=== PATIENT | female | born 1925 | race Caucasian/White ===

== ENCOUNTER → 2016-11-19 | Outpatient (CLI) | payer MEDICARE, MEDICAID ==
[~2016-11-19] MED LIST: /METO25TAB PO; /PANT40TA PO; ACET-654 PO; ADV250INH INH; ASPI81TA85 PO; ATOR1TAB21 PO; ATRO0.063 INH; ATROVENT 0.02% INH; CARA1TAB2 PO; CIPR500T89 PO; CLOP75TA2 PO; FE T325T PO; FERR220E2 PO; FISH1000 PO; FLON0.054; FLUTISP; GABA300C2 PO; GABA300C3 PO; HYDR-3713 PO; LASI40TA PO; LIDO1DIS2 TD; LIDO1OIN2 TOP; LISI10TA4 PO; LISI5TAB PO; LORTTAB5 PO; LUTE15CA PO; METO25TAB PO; NITR3TA SL; NITR4TASL SL; NORCOBULK PO; OCUVCAP PO; OMEP20CA3 PO; OPTI0.5D5 OU; PANT40TA2 PO; PLAV75TA38 PO; SPIR1CAP IN; VOLT1GEL2 TD; VOLT1GEL24 TD; ZANT150T PO; [UNRECOGNIZED DRUG - CODE] OP; [UNRECOGNIZED DRUG - OTHER] PO; albuterol hfa INH
--- NOTE | 2016-12-06 00:19 | ECWPNPC ---
PATIENT NAME: SHARON HERNÁNDEZ : 1925 GENDER: FEMALE VISIT DATE: 11/19/2016 DISCHARGE DATE: 11/19/16 1040 VISIT LOCKED DATE TIME: PHYSICIAN: DANILO DE LEON RESOURCE: DANILO DE LEON REASON FOR APPOINTMENT 1. POST ED VISIT, BACK HISTORY OF PRESENT ILLNESS HISTORY OF PRESENT ILLNESS: PAIN THE PATIENT DESCRIBES THE PAIN... FALL RISK SCREENING: SCREENING :NO FALLS IN THE PAST YEAR TODAY'S VISIT: NOTES: RATES PAIN TODAY 10. REPORTS PAIN IS CENTERED AT THE BASE OF THE NECK WITH RADIATION ACROSS THE RIGHT ANDTERIOR AND POSTERIOR CHEST WALL TO THE SHOULDER.. CURRRENTLY REPORTS MINIMAL TO NO LOW BACK OR SACRALILIAC PAIN. IS S/P LEFT SIJ INJECTION ON 08/21/16 WITH VERY GOOD EFFECT. . CURRENT MEDICATIONS TAKING METOPROLOL TARTRATE 25 MG TAB ORAL BID TAKING ATORVASTATIN CALCIUM 20 MG TABLET 1 TABLET ORALLY ONCE A DAY TAKING HYDROCODONE-ACETAMINOPHEN 5-325 MG TABLET 1 TABLET NEEDED ORALLY EVERY 4 HRS PRN TAKING EYE-BEULAH EXTRA PLUS LUTEIN TABLET ORALLY TAKING VITAMIN B-1 1000 MG TABLET 1 TABLET ORALLY ONCE A DAY TAKING FISH OIL 1000 MG CAPSULE 1 CAPSULE ORALLY ONCE A DAY TAKING ADVAIR DISKUS 100-50 MCG/DOSE MISCELLANEOUS INHALATION TAKING SLEEP AID 25 MG TABLET 1 TABLET AT BEDTIME NEEDED ORALLY AT HS PRN TAKING VITAMIN D 1000 UNIT CAPSULE 1 CAPSULE ORALLY ONCE A DAY TAKING ASPIRIN ADULT LOW DOSE 81 MG TABLET DELAYED RELEASE 1 TABLET ORALLY ONCE A DAY TAKING GABAPENTIN 300 300 MG TABLET 1 OR 2 ORAL AT HS PRN TAKING FLONASE 50 MCG/DOSE INHALER 1 SPRAY IN EACH NOSTRIL NASALLY ONCE A DAY TAKING NITROGLYCERIN 0.4 MG TABLET SUBLINGUAL SUBLINGUAL PRN CHEST PAIN, NOTES: 07/11/16@0100 TAKING ASPERCREME 10 % CREAM 1 APPLICATION TO AFFECTED AREA NEEDED EXTERNALLY 2-3X/DAY, NOTES: 07/14/16@2100 TAKING LIDOCAINE 5 % PATCH 1 PATCH TO INTACT SKIN REMOVE AFTER 12 HOURS EXTERNALLY ONCE A DAY ON 12 HRS, OFF 12 HRS TO LOW BACK/SHOULDERS NOT-TAKING PANTOPRAZOLE SODIUM 40 MG TABLET DELAYED RELEASE 1 TABLET ORALLY ONCE A DAY, NOTES: 0630 MEDICATION LIST REVIEWED AND RECONCILED WITH THE PATIENT PAST MEDICAL HISTORY HTN OSTEO ARTHRITIS CORONARY ARTERY DISEASE ANEMIA ALLERGIES PENICILLIN (FOR ALLERGIES USE ONLY): HIVES: ALLERGY SULFA (FOR ALLERGY USE ONLY): CONFUSION: ALLERGY ERYTHROMYCIN: CONFUSION: ALLERGY SOCIAL HISTORY GENERAL: TOBACCO USE ARE YOU A:NONSMOKER LEARNING 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 NEW PATIENT PAIN DIARY TODAY'S VISITNOTES FROM 0-10, WHAT LEVEL IS YOUR PAIN TODAY?0 PAIN CLINIC PFS, CLERGY, PUBLIC HEALTH REFERRALS PFS REFERRAL NEEDED?NO CLERGY REFERRAL NEEDED?NO PUBLIC HEALTH REFERRAL NEEDED?NO WAS THE PROVIDER NOTIFIED OF ANY PERTINENT INFO?NO PFS REFERRAL NEEDED?NO CLERGY REFERRAL NEEDED?NO PUBLIC HEALTH REFERRAL NEEDED?NO WAS THE PROVIDER NOTIFIED OF ANY PERTINENT INFO?NO REVIEW OF SYSTEMS CONSTITUTIONAL: ANY CHANGE IN YOUR MEDICAL CONDITION? NO . CHILLS NO . FEVER NO . INFECTION: DO YOU HAVE NEW INFECTIONS? NO . DO YOU HAVE HISTORY OF MRSA? NO . MUSCULOSKELETAL: ANY NEW PATTERNS OF PAIN OR NUMBNESS? NO . GASTROENTEROLOGY: ANY NEW CHANGE IN BOWEL CONTROL? NO . GENITOURINARY: ANY NEW CHANGE IN BLADDER CONTROL? NO . IS THERE A CHANCE YOU COULD BE ? NO . HEMATOLOGY/LYMPH: DO YOU TAKE ANY BLOOD THINNERS? (FOR EXAMPLE- COUMADIN, PLAVIX, AGGRENOX, PLATEL, PRADAXA, OR XARELTO) NO . WHEN WAS YOUR LAST DOSE? DATE: TIME: . NEUROLOGY: HAVE YOU FALLEN IN THE PAST 6 MONTHS? NO . ANY NEW EXTREMITY NUMBNESS OR WEAKNESS? NO . CARDIOLOGY: DO YOU HAVE A PACEMAKER OR DEFIBRILLATOR? NO . RESPIRATORY: HAVE YOU BEEN SICK IN THE PAST WEEK? NO . FEVER NO . FLU LIKE SYMPTOMS? NO . COUGH YES PT HAD AN ER VISIT TO [facility] REPORT ATTACHED TO PAPERWORK . INTEGUMENTARY: DO YOU HAVE ANY RASHES OR OPEN SORES? NO . ALLERGIC/IMMUNO: ARE YOU ALLERGIC TO SHELLFISH OR IV DYE? NO . ANY NEW ALLERGIES? NO . PSYCHIATRIC: DO YOU HAVE THOUGHTS OF HURTING YOURSELF OR SOMEONE ELSE? NO . ARE YOU ABUSED, NEGLECTED, OR IN AN UNSAFE ENVIRONMENT? NO . ENDOCRINOLOGY: ARE YOU DIABETIC? NO . OTHER: DO YOU NEED ANY PRESCRIPTIONS? NO . IF YES, PLEASE LIST: ____ . ANY NEW PROBLEMS WITH YOUR MEDICATIONS? NO . WHEN DID YOU LAST EAT? ____ . WHEN DID YOU LAST DRINK? ____ . WHAT DID YOU LAST DRINK? ____ . NAME OF PERSON DRIVING YOU HOME? ____ . DO YOU HAVE ANY OTHER QUESTIONS OR CONCERNS NO . REVIEWED BY: PROVIDER: DANILO CALDERÓN . VITAL SIGNS WT 125 LBS, HT 4'1", BMI 36.60 INDEX, BP 149/71 MM HG, HR 103 /MIN, RR 26 /MIN, TEMP 98.9 F, OXYGEN SAT % 91, NA INITIALS TL 0937, REVIEWED BY: KGELEVATED RESPIRATIOMS 26, O2 91% RN Bhaskar AWARE- TL. EXAMINATION GENERAL EXAMINATION: LUNGS:DECREASED AIR ENTRY AT BASES, CLEAR TO AUSCULTATION BILATERALLY COUGH WITH DEEP BREATH. HEART:HEART RATE REGULAR, NO MURMURS, CLICK OR RUBS. MUSCULOSKELETAL:NO TENDERNESS OVER LEFT SIJ. NEGATIVE SIDNEY SIGN., MUSCLE STRENGTH TESTING 5/5 BILATERAL LOWER EXTREMITIES. RISES EASILY TO STANDING POSITION, TENDERNESS TO PALPATION OVER LEFT DELTOID AND LEFT AC JOINT, TRIGGER POINTS:, ELICITED WITH PALPATION OVER CERVICAL SPINOUS PROCESSES AND ACROSS THE TRAPEZIUS MUSCLES BILATERALLY. RESTRICTION OF ROM IS NOTED. . EXTREMITIES:TRACE EDEMA BILATERAL LOWER EXTREMITIES. NEUROLOGIC EXAM:AREA OF DECREASED SENSATION OVER LEFT ANTERIOR/LATERAL THIGH. 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 CONTINUE CURRENT MEDS. WALK DAILY. DO EXERCISES AND STRETCHES, FALLS CARE PLAN: 1. RECOMMEND REMOVING ALL THROW RUGS. 2. RECOMMEND NIGHT LIGHTS 3. RECOMMEND WEARING RUBBER SOLED SHOES AND TO NOT GO BAREFOOT. 4.. ADVISED TO CHANGE POSITION SLOWLY FROM SUPINE TO STANDING TO AVOID DIZZINESS. 5. ADVISED TO USE ASSISTIVE DEVICE SUCH CANE OR WALKER 6. USE LIFELINE SERVICES OR KEEP PORTABLE PHONE READILY AVAILABLE. PROCEDURE CODES FA211 ESTABILISHED PATIENT [facility] CHARGE G6413 BP SCR PRFRM RCMDD DEFIND SCR INTVL G0345 PAIN ASSESS POS TOOL F/U PLAN DOC 3016F PT SCRND [place] USE 1123F ACP DISCUSS/DSCN MKR DOCD 1036F TOBACCO NON-USER 0518F FALL PLAN OF CARE DOCD D9727 DOC MEDS VERIFIED W/PT OR RE G8420 BMI<30 AND >=22 CALC & DOCU 3288F FALL RISK ASSESSMENT DOCD FOLLOW UP CALL NEEDED (REASON: RIGHT SHOULDER) ELECTRONICALLY SIGNED BY DONG GONZALES ON 12/05/2016 AT 05:19 PM EST DISCLAIMER : THIS IS A VISIT SUMMARY EXTRACTED FROM THE ECL[employer]ICALWORKS CHART. IT IS NOT A COPY OF THE [employer]WORKS PROGRESS NOTE. MTDD
== END ==
LOC: M PAIN 09:40
PROVIDERS: ATTEND Nurse Practitioner Family
DX: Z09 Encounter for follow-up examination after completed treatment for conditions other than malignant neoplasm (principal); G89.29 Other chronic pain; M79.1 Myalgia; M54.2 Cervicalgia; M46.1 Sacroiliitis, not elsewhere classified; I10 Essential (primary) hypertension; M19.90 Unspecified osteoarthritis, unspecified site; I25.10 Atherosclerotic heart disease of native coronary artery without angina pectoris; D64.9 Anemia, unspecified; Z88.0 Allergy status to penicillin; Z88.2 Allergy status to sulfonamides; Z88.1 Allergy status to other antibiotic agents; Z79.891 Long term (current) use of opiate analgesic; Z79.82 Long term (current) use of aspirin; Z79.899 Other long term (current) drug therapy

== ENCOUNTER 2016-12-18 09:15 | Outpatient (CLI) | payer MEDICAID, MEDICARE ==
[~2016-12-18] VITALS: Ht 149.9 cm; Wt 53.4 kg
[2016-12-18 16:18] LABS: MEAN CORPUSCULAR HEMOGLOBIN 23.1 pg (27.0-33.0); MEAN CORPUSCULAR VOLUME 76.9 fl (80.0-96.0); RED CELL DISTRIBUTION WIDTH 17.2 % (11.5-14.5); WHITE BLOOD COUNT 6.6 K/mm3 (4.0-10.0)
== END 2016-12-18 16:25 | disposition home or self-care (01) ==
LOC: M INFU 09:15
PROVIDERS: ATTEND Internal Medicine
DX: D64.9 Anemia, unspecified (principal); Z79.899 Other long term (current) drug therapy; Z88.0 Allergy status to penicillin; Z88.1 Allergy status to other antibiotic agents; Z88.7 Allergy status to serum and vaccine; Z88.2 Allergy status to sulfonamides
CPT/HCPCS: 36415; 36430; 85027; 86850; 86870; 86905; 86920; P9016

== ENCOUNTER 2017-01-15 05:20 | Inpatient (IN) | payer MEDICARE ==
[~2017-01-15] VITALS: Ht 149.9 cm; Wt 56.5 kg
[2017-01-15] MEDS ORDERED: VITA100037 PO (05:52)
[2017-01-15] MEDS ORDERED: FLON1SPR (05:52)
[2017-01-15] MEDS ORDERED: FURO20TA2 PO ×2 (05:52→16:25)
[2017-01-15] MEDS ORDERED: IPRAINH INH (05:52)
[2017-01-15] MEDS ORDERED: ADV250INH INH (05:52)
[2017-01-15 06:17] LABS: INR 0.98
[2017-01-15 06:20] LABS: ADD MORPHOLOGY? YES; BASO # 0.1 K/mm3 (0.0-0.2); BASO % 1.3 % (0.0-1.0); EOS # 0.3 K/mm3 (0.0-0.50); EOS % 5.4 % (0.0-3.0); LARGE UNSTAINED CELL # 0.1 K/mm3 (0.0-0.4); LARGE UNSTAINED CELL % 2.5 % (0.0-4.0); LYMPH # 0.9 K/mm3 (1.5-4.5); LYMPH % 18.9 % (24.0-44.0); MEAN CORPUSCULAR HEMOGLOBIN 22.4 pg (27.0-33.0); MEAN CORPUSCULAR HGB CONC 29.4 g/dl (32.0-36.5); MEAN CORPUSCULAR VOLUME 76.4 fl (80.0-96.0); MONO # 0.3 K/mm3 (0.0-0.8); MONO % 6.2 % (0.0-5.0); NEUTROPHILS # 3.2 K/mm3 (1.8-7.7); NEUTROPHILS % 65.7 % (36.0-66.0); PLATELET COUNT, AUTOMATED 394 k/mm3 (150-450); RED CELL DISTRIBUTION WIDTH 19.2 % (11.5-14.5); WHITE BLOOD COUNT 4.9 K/mm3 (4.0-10.0)
[2017-01-15 06:40] LABS: ANION GAP 8 MEQ/L (8-16); BLOOD UREA NITROGEN 21 MG/DL (7-18); CALCIUM LEVEL 9.2 MG/DL (8.8-10.2); CARBON DIOXIDE LEVEL 28 MEQ/L (21-32); CHLORIDE LEVEL 106 MEQ/L (98-107); CREATININE FOR GFR 1.08 MG/DL (0.55-1.02); GLOMERULAR FILTRATION RATE 50.9 (>32); GLUCOSE, FASTING 103 MG/DL (83-110); POTASSIUM SERUM 3.9 MEQ/L (3.5-5.1); SODIUM LEVEL 142 MEQ/L (136-145)
[2017-01-15 07:08] LABS: ANISOCYTOSIS 1+; HYPOCHROMASIA 2+; MICROCYTOSIS 1+
--- NOTE | 2017-01-15 08:25 | REP ---
Clinical: Chest pain. Comparison: 04/16/2016. Findings: Mediastinum and cardiac silhouette are stable. Large retrocardiac opacity may reflect hiatal hernia. Lung bailey demonstrate chronic changes without further consolidation, effusion, or pneumothorax. Skeletal structures demonstrate age-related degenerative changes. Impression: Presumed large hiatal hernia. Chronic stable changes. Signed by Geraldo Wheeler MD 01/15/2017 08:17 A
[2017-01-15] MEDS ORDERED: IBUPROFEN 400 MG TAB PO ONE (12:15)
[2017-01-15] MEDS ORDERED: IPRATROPIUM 0.5MG/ALBUTEROL 2.5MG INH SOL UD 3ML (DUONEB)(J7620) NEB ONE (13:30)
[2017-01-15] MEDS ORDERED: ISOVUE-370 76% 100ML VIAL (Q9967) As Ordered ONE (14:50)
--- NOTE | 2017-01-15 15:42 | REP ---
Clinical: Hypoxia and chest pain . Technique: Axial contrast enhanced images from the thoracic inlet to the upper abdomen using 100 ml Isovue 370 intravenous contrast material with multiplanar re-formations. Findings: Satisfactory enhancement of the pulmonary vasculature is achieved and no filling defects are identified to suggest pulmonary embolus. Atherosclerotic changes to the thoracic aorta and coronary arteries noted without aortic aneurysm/dissection and no evidence for cardiomegaly or pericardial effusion. A moderate hiatal hernia is identified. There is no evidence for adenopathy. The lung bailey demonstrate mild emphysematous changes and bronchiectasis as well as mild left basilar atelectasis. No pleural effusion or pneumothorax. Impression: No evidence for pulmonary embolus. Mild emphysematous changes, scattered bronchiectasis, and mild left basilar atelectasis. Moderate hiatal hernia. Signed by Geraldo Wheeler MD 01/15/2017 03:33 P
[2017-01-15] MEDS ORDERED: METO12TA PO (16:25)
[2017-01-15] MEDS ORDERED: CELLOPD OU (16:25)
[2017-01-15] MEDS ORDERED: OCUVTAB4 PO (16:27)
[2017-01-15] MEDS ORDERED: PANT40TA2 PO (16:27)
[2017-01-15] MEDS ORDERED: MIRA33504 PO (16:27)
[2017-01-15] MEDS ORDERED: VITA100066 PO (16:27)
[2017-01-15] MEDS ORDERED: NS 500 ML IV ONE (16:28)
[2017-01-15] MEDS ORDERED: ONDANSETRON 4MG/2ML VIAL (J2405) IV PRN (16:30)
[2017-01-15] MEDS ORDERED: NITROGLYCERIN 0.4 MG SUBL TABLET SL PRN (16:30)
[2017-01-15] MEDS ORDERED: IPRATROPIUM 0.5MG/ALBUTEROL 2.5MG INH SOL UD 3ML (DUONEB)(J7620) NEB PRN (16:30)
--- NOTE | 2017-01-15 17:37 | HPEPDOC ---
General Date of Admission Jan 15, 2017 at 16:28 Chief Complaint The patient is a 89-year-old female admitted with a reason for visit of Copd Exacerbation. Source: Patient Exam Limitations: No limitations History of Present Illness 89-year-old female with past medical history of chronic anemia, GERD, hypertension, CAD status post stents in the past, dyslipidemia, osteoarthritis, degenerative disc disease, and COPD presented to the ER with a chief complaint of worsening shortness of breath over the last 5 days. The patient states that during this time she has been having a cough productive of yellowish-green sputum, and she has felt increasingly short of breath at rest. At baseline, the patient states that she does not require any oxygen, and she is adherent to her albuterol and Atrovent therapy. She notes that she rarely needs to use her nebulizer treatments at home, however during this time she has been using it frequently without any improvement of her symptoms. The patient denies any fevers or chills, but does note that she has been feeling generalized fatigue and lethargy during this time. She states, "I feel that I can sleep for a few days." The patient denies any acute complaints of lightheadedness, dizziness, chest palpitations, orthopnea, PND, lower extremity swelling, nausea, vomiting, or diarrhea. In the ER, the patient was requiring 2 L of oxygen via nasal cannula to maintain oxygen saturation above 88%. A chest x-ray and a CTA of the chest revealed no acute abnormalities. The patient will be admitted under the hospitalist service for hypoxia likely secondary to viral URI. Home Medications Scheduled (Flonase Allergy Relief) 50 Mcg/Act Spr 1 SPRAY NA BID (Reported) PATIENT IS ALL OUT (Preservision Areds) 1 Tab Tab 2 TAB PO BID (Reported) Aspirin (Aspir-81) 81 Mg Tab 81 MG PO DAILY (Reported) Atorvastatin Calcium (Atorvastatin Calcium) 20 Mg Tab 20 MG PO QHS (Reported) Carboxymethylcellulose Sod (Refresh Celluvisc) 0.4 Ml Soln 1 DROP OU BID ( Reported) PATIENT IS ALL OUT Cholecalciferol (Vitamin D) 1,000 Unit Tab 1,000 UNIT PO DAILY (Reported) Furosemide (Furosemide) 20 Mg Tab 20 MG PO DAILY (Reported) Gabapentin (Gabapentin) 300 Mg Cap 300 MG PO QHS (Reported) Ipratropium Emerson (Atrovent Hfa) 200 Puff/12.9 Gm Aers 2 PUFF INH QID ( Reported) Metoprolol Tartrate (Metoprolol Tartrate) 25 Mg Tab 25 MG PO BID (Reported) Pantoprazole Sodium (Pantoprazole Sodium) 40 Mg Tab 40 MG PO BID (Reported) Polyethylene Glycol (Miralax) 1 Pow Pow 17 GM PO DAILY (Reported) Salmeterol/Fluticasone (Advair Diskus 250-50 Mcg/Dose) 14 Puff/Inhaler Aerp 1 PUFF INH BID (Reported) Scheduled PRN Acetaminophen/Hydrocodone (Hydrocodone/Acetaminophen 5-325 mg) 1 Tab Tab 1 TAB PO Q4H PRN PRN PAIN (Reported) PATIENT HAS BEEN OUT FOR ABOUT 1 WEEK Nitroglycerin (Nitrostat) 0.4 Mg Subl 0.4 MG SL NITRO PRN PRN CHEST PAIN ( Reported) Allergies Coded Allergies: Erythromycin (Verified Allergy, Intermediate, RASH AND ACHEY, 01/31/13) Penicillins (Verified Allergy, Intermediate, RASH AND HIVES, 01/31/13) Pneumococcal Vaccine (Verified Adverse Reaction, Intermediate, SLIGHT SKIN IRRITATION, 01/31/13) Sulfa Drugs (Verified Adverse Reaction, Intermediate, CONFUSION, 01/31/13) Past Medical History Medical History As noted in the HPI. Surgical History Hysterectomy, coronary stents, carpal tunnel repair, appendectomy, bilateral cataract surgery Family History Significant Family History: No pertinent family hx Social History * Smoker: other (quit smoking tobacco in 2000) Alcohol: occationally Drugs: denies Lives at home with her one cat, is able to complete activities of daily living independently, does not walk with any assistive devices. Review of Symptoms Other systems 10 point review of systems negative unless otherwise specified in HPI. Physical Examination General Exam: Positive: Alert, Cooperative, No Acute Distress ENT Exam: Positive: Atraumatic, Mucous membr. moist/pink Neck Exam: Negative: JVD Chest Exam: Positive: Diminished, Wheezing, Negative: Rales Heart Exam: Positive: Normal S1, Normal S2, Rate Normal Abdomen Exam: Positive: Soft, Negative: Tenderness Extremity Exam: Negative: Swelling, Tenderness Vital Signs As noted in EMR Laboratory Data Labs 24H Laboratory Tests 2 01/15/17 06:03: Activated Partial Thromboplast Time 43.7H, Anion Gap 8, Anisocytosis 1+, White Blood Count 4.9, Red Blood Count 4.39, Hemoglobin 9.8L, Hematocrit 33.5L, Mean Corpuscular Volume 76.4L, Mean Corpuscular Hemoglobin 22.4L, Mean Corpuscular Hemoglobin Concent 29.4L, Red Cell Distribution Width 19.2H, Platelet Count 394 , Neutrophils (%) (Auto) 65.7, Lymphocytes (%) (Auto) 18.9L, Monocytes (%) (Auto ) 6.2H, Eosinophils (%) (Auto) 5.4H, Basophils (%) (Auto) 1.3H, Neutrophils # ( Auto) 3.2, Lymphocytes # (Auto) 0.9L, Monocytes # (Auto) 0.3, Eosinophils # ( Auto) 0.3, Basophils # (Auto) 0.1, Blood Urea Nitrogen 21H, Creatinine 1.08H, Sodium Level 142, Potassium Level 3.9, Chloride Level 106, Carbon Dioxide Level 28, Calcium Level 9.2, Total Creatine Kinase 112, Creatine Kinase MB 1.9, Creatine Kinase MB Relative Index 1.69, Glomerular Filtration Rate 50.9, Hypochromasia 2+, Large Unclassified Cells # 0.1, Large Unclassified Cells % 2.5 , Microcytosis 1+, Platelet Estimate NORMAL, Prothromb Time International Ratio 0.98, Prothrombin Time 13.1, Troponin I < 0.02 01/15/17 11:46: Total Creatine Kinase 102, Creatine Kinase MB 2.2, Creatine Kinase MB Relative Index 2.15, Troponin I < 0.02 CBC/BMP Laboratory Tests 01/15/17 06:03 Calcium Level 9.2, Total Creatine Kinase 112, Red Blood Count 4.39, Mean Corpuscular Volume 76.4 L, Mean Corpuscular Hemoglobin 22.4 L, Mean Corpuscular Hemoglobin Concent 29.4 L, Red Cell Distribution Width 19.2 H, Neutrophils (%) ( Auto) 65.7, Lymphocytes (%) (Auto) 18.9 L, Monocytes (%) (Auto) 6.2 H, Eosinophils (%) (Auto) 5.4 H, Basophils (%) (Auto) 1.3 H, Neutrophils # (Auto) 3.2, Lymphocytes # (Auto) 0.9 L, Monocytes # (Auto) 0.3, Eosinophils # (Auto) 0.3, Basophils # (Auto) 0.1 Plan / VTE VTE Prophylaxis Ordered?: Yes Plan Plan COPD exacerbation likely secondary to viral URI We will admit the patient to the PCU Chest x-ray and CT of the chest with no acute findings Influenza, Respiratory panel ordered Solu-Medrol 60 mg every 8 hours Continue nebulizer therapy We will continue to monitor the patient's respiratory status, and down titrate supplemental oxygen therapy as tolerated History of CAD status post stents in the past EKG with no acute ST changes noted Troponin is negative 2 in the ER, we will continue to cycle Continue aspirin, statin, metoprolol We will continue to monitor the patient on telemetry for now Dyslipidemia Continue statin Degenerative disc disease, osteoarthritis Physical therapy eval ordered Hypertension, stable Continue current meds GERD Continue PPI DVT prophylaxis-upper and subcutaneous The patient will be admitted under the service of Dr. Bowman, who will begin to follow the patient on 01/16. ANDRÉS TEJADA MD Jan 15, 2017 17:37
[2017-01-15] MEDS: methylPREDNISolone INJ 125 MG/2 ML VIAL (J2930) IV SCH (18:37)
[2017-01-15] MEDS: ADVAIR DISKUS 250/50 INH PWD INH SCH (20:18)
[2017-01-15] MEDS: IPRATROPIUM 0.5MG/ALBUTEROL 2.5MG INH SOL UD 3ML (DUONEB)(J7620) NEB SCH (20:18)
[2017-01-15 20:20] VITALS: BP 168/82
[2017-01-15] MEDS: ATORVASTATIN 20 MG TAB PO SCH (20:48)
[2017-01-15] MEDS: PANTOPRAZOLE 40MG TAB (PROTONIX) PO SCH (20:48)
[2017-01-15] MEDS: METOPROLOL TART 25 MG TABLET PO SCH (20:48)
[2017-01-15] MEDS: GABAPENTIN 300 MG CAP PO SCH (20:49)
--- NOTE | 2017-01-15 21:01 | ECGEPIP ---
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
--- NOTE | 2017-01-15 21:05 | ECGEPIP ---
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
[2017-01-15] MEDS: HEPARIN SOD (PORCINE) 5000 UNITS/ML VIAL SC SCH (21:43)
[2017-01-15] MEDS: FLUTICASONE PROP 0.05% NASAL SPRAY 16 GM (FLONASE) SCH (21:43)
[2017-01-15 23:00] VITALS: BP 170/89
[2017-01-15] MEDS ORDERED: amLODIPine 5 MG TAB PO ONE (23:00)
[2017-01-16 01:00] VITALS: BP 156/84
[2017-01-16] MEDS: methylPREDNISolone INJ 125 MG/2 ML VIAL (J2930) IV SCH ×3 (01:17→18:05)
[2017-01-16] MEDS: IPRATROPIUM 0.5MG/ALBUTEROL 2.5MG INH SOL UD 3ML (DUONEB)(J7620) NEB SCH ×4 (02:00→20:00)
[2017-01-16 05:02] LABS: MEAN CORPUSCULAR HEMOGLOBIN 22.6 pg (27.0-33.0); MEAN CORPUSCULAR HGB CONC 29.3 g/dl (32.0-36.5); MEAN CORPUSCULAR VOLUME 77.3 fl (80.0-96.0); RED CELL DISTRIBUTION WIDTH 19.3 % (11.5-14.5); WHITE BLOOD COUNT 5.3 K/mm3 (4.0-10.0)
[2017-01-16 05:09] LABS: ANION GAP 5 MEQ/L (8-16); BLOOD UREA NITROGEN 17 MG/DL (7-18); CALCIUM LEVEL 8.5 MG/DL (8.8-10.2); CARBON DIOXIDE LEVEL 29 MEQ/L (21-32); CHLORIDE LEVEL 109 MEQ/L (98-107); CREATININE FOR GFR 0.95 MG/DL (0.55-1.02); GLUCOSE, FASTING 179 MG/DL (83-110); MAGNESIUM LEVEL 2.3 MG/DL (1.8-2.4); POTASSIUM SERUM 4.6 MEQ/L (3.5-5.1); SODIUM LEVEL 143 MEQ/L (136-145)
[2017-01-16 05:40] VITALS: BP 125/79
[2017-01-16] MEDS: HEPARIN SOD (PORCINE) 5000 UNITS/ML VIAL SC SCH ×3 (05:57→21:19)
--- NOTE | 2017-01-16 08:39 | IPNPDOC ---
Subjective Date Seen The patient was seen on 01/16/17. Subjective Chief Complaint/HPI The patient is a 89-year-old female admitted with a reason for visit of Copd Exacerbation. General: Denies: Chills, Fatigue, Malaise, Night Sweats, Normal Appetite, Other Symptoms, ROS Unobtainable Constitutional: Denies: Chills, Fatigue, Fever, Lethargy, Malaise, Night Sweats , Other, Weakness, Weight Loss Eyes: Denies: Conjunctivae inflammation, Eyelid inflammation, Other, Pain, Redness, Vision change ENT: Denies: Dysphagia, Ear Pain, Epistaxis, Head Aches, Other Symptoms, Post Nasal Drip, Sinus Congestion, Sore Throat Skin: Denies: Breakdown, Bruising, Dry, Itching, Jaundice, Lesions, Nail Changes, Other, Rash Pulmonary: Reports: Cough, Dyspnea, Denies: Other Symptoms, Pleuritic Chest Pain Cardiovascular: Denies: Chest Pain, Edema, Lt Headedness, Orthopnea, Other Symptoms, Palpitations, Paroxysmal Noc. Dyspnea Gastrointestinal: Denies: Abdominal Pain, Constipation, Diarrhea, Hematochezia , Melena, Nausea, Other Symptoms, Vomiting Genitourinary: Denies: Dysuria, Frequency, Hematuria, Incontinence, Other Symptoms, Retention Objective Physical Examination General Exam: Positive: Alert, Cooperative, No Acute Distress Eye Exam: Positive: Conjunctiva & lids normal, EOMI, PERRLA, Negative: Sclera icteric ENT Exam: Positive: Atraumatic, Mucous membr. moist/pink Neck Exam: Negative: JVD Chest Exam: Positive: Rhonchi, Wheezing, Negative: Rales Heart Exam: Positive: Normal S1, Normal S2, Rate Normal, Regular Rhythm Abdomen Exam: Positive: Normal bowel sounds, Soft, Negative: Tenderness Extremity Exam: Negative: Edema, Swelling, Tenderness Psych Exam: Positive: Mental status NL, Oriented x 3 Assessment /Plan Problems (1) Dyspnea Onset Date: 08/22/2014 Status: Acute Response to Treatment: Progressing Discussed With: Patient Problem Specific Plan: Monitor Clinically Problem Text: Still short of breath this morning with productive cough. (2) Hypoxia Status: Acute Response to Treatment: Progressing Discussed With: Patient Problem Specific Plan: Monitor Clinically Problem Text: Intermittently requiring supplemental oxygen. This morning was short of breath on room air during examination. (3) COPD exacerbation Onset Date: 08/22/2014 Status: Acute Response to Treatment: Progressing Discussed With: Patient Problem Specific Plan: Monitor Clinically Problem Text: Continue with supplemental oxygen as needed, nebulizers, taper steroids, IS, acapella. (4) Anemia Status: Chronic Discussed With: Patient Problem Specific Plan: Monitor Clinically, Repeat Labs (5) CAD (coronary artery disease) Status: Chronic Discussed With: Patient Problem Specific Plan: Monitor Clinically (6) HTN (hypertension) Status: Chronic Discussed With: Patient Problem Specific Plan: Monitor Clinically (7) Dyslipidemia Status: Chronic Discussed With: Patient (8) GERD (gastroesophageal reflux disease) Status: Chronic Discussed With: Patient (9) DJD (degenerative joint disease) Status: Chronic Discussed With: Patient (10) Osteoarthritis Status: Chronic Discussed With: Patient Plan/VTE VTE Prophylaxis Ordered?: Yes Plan Diet: Continue Current Activity: Continue Current Therapy: PT Medications: Taper Steroids Respiratory: Wean Oxygen Diagnostics: Repeat Labs in AM Anticipated Discharge: Home, Home With Services VS, I&O, 24H, [facility] Vital Signs/I&O Vital Signs Date Time Temp Pulse Resp B/P Pulse Ox O2 Delivery O2 Flow Rate FiO2 01/16/17 01:00 156/84 01/15/17 22:57 88 01/15/17 20:20 97.4 18 88 Room Air 01/15/17 18:01 2 I&O- Last 24 Hours up to 6 AM 01/16/17 05:59 Intake Total 500 ml Output Total 0 ml Balance 500 ml Laboratory Data 24H LABS Laboratory Tests 2 01/15/17 11:46: Creatine Kinase MB 2.2, Creatine Kinase MB Relative Index 2.15, Total Creatine Kinase 102, Troponin I < 0.02 01/15/17 20:05: Troponin I < 0.02 01/16/17 04:41: Troponin I < 0.02, Anion Gap 5L, Blood Urea Nitrogen 17, Creatinine 0.95, Sodium Level 143, Potassium Level 4.6, Chloride Level 109H, Carbon Dioxide Level 29, Calcium Level 8.5L, Glomerular Filtration Rate 59.0, Magnesium Level 2.3 CBC/BMP Laboratory Tests 01/16/17 04:41 Calcium Level 8.5 L, Red Blood Count 4.66, Mean Corpuscular Volume 77.3 L, Mean Corpuscular Hemoglobin 22.6 L, Mean Corpuscular Hemoglobin Concent 29.3 L, Red Cell Distribution Width 19.3 H Microbiology Microbiology 01/15/17 Influenza Virus Type A Antigen - Final, Complete 01/15/17 Influenza Virus Type B Antigen - Final, Complete 01/15/17 Respiratory Virus Panel (PCR) (SHERRY) - Final, Complete LETY JOHNSON MD Jan 16, 2017 06:44
[2017-01-16] MEDS ORDERED: guaiFENesin 200 MG TAB PO PRN (08:45)
[2017-01-16] MEDS: FLUTICASONE PROP 0.05% NASAL SPRAY 16 GM (FLONASE) SCH ×2 (09:19→20:31)
[2017-01-16] MEDS: ASPIRIN 81 MG ENTERIC TAB PO SCH (09:19)
[2017-01-16] MEDS: METOPROLOL TART 25 MG TABLET PO SCH ×2 (09:19→20:31)
[2017-01-16] MEDS: PANTOPRAZOLE 40MG TAB (PROTONIX) PO SCH ×2 (09:19→20:31)
[2017-01-16] MEDS: MIRALAX *UNIT DOSE* 17GM PACKET PO SCH (09:19)
[2017-01-16] MEDS: ADVAIR DISKUS 250/50 INH PWD INH SCH ×2 (10:35→20:14)
[2017-01-16 14:00] VITALS: BP 126/59
[2017-01-16] MEDS: ACETAMINOPHEN TAB 650MG DOSE (2X325MG) PO PRN (19:58)
[2017-01-16 20:05] VITALS: BP 172/84
[2017-01-16] MEDS: GABAPENTIN 300 MG CAP PO SCH (20:31)
[2017-01-16] MEDS: ATORVASTATIN 20 MG TAB PO SCH (20:31)
[2017-01-16 22:30] VITALS: BP 134/72
[2017-01-17] MEDS: methylPREDNISolone INJ 125 MG/2 ML VIAL (J2930) IV SCH (01:59)
[2017-01-17] MEDS: IPRATROPIUM 0.5MG/ALBUTEROL 2.5MG INH SOL UD 3ML (DUONEB)(J7620) NEB SCH ×4 (02:00→19:54)
[2017-01-17] MEDS: HEPARIN SOD (PORCINE) 5000 UNITS/ML VIAL SC SCH ×3 (05:22→21:37)
[2017-01-17 05:50] VITALS: BP 137/81
[2017-01-17 06:28] LABS: MEAN CORPUSCULAR HEMOGLOBIN 23.2 pg (27.0-33.0); MEAN CORPUSCULAR HGB CONC 29.7 g/dl (32.0-36.5); MEAN CORPUSCULAR VOLUME 78.2 fl (80.0-96.0); RED CELL DISTRIBUTION WIDTH 19.7 % (11.5-14.5); WHITE BLOOD COUNT 13.8 K/mm3 (4.0-10.0)
[2017-01-17 06:33] LABS: CALCIUM LEVEL 9.3 MG/DL (8.8-10.2); CREATININE FOR GFR 1.03 MG/DL (0.55-1.02); GLOMERULAR FILTRATION RATE 53.7 (>32); POTASSIUM SERUM 4.2 MEQ/L (3.5-5.1)
[2017-01-17] MEDS: ADVAIR DISKUS 250/50 INH PWD INH SCH ×2 (07:15→19:55)
--- NOTE | 2017-01-17 09:01 | IPNPDOC ---
Subjective Date Seen The patient was seen on 01/17/17. Subjective Chief Complaint/HPI The patient is a 89-year-old female admitted with a reason for visit of Copd Exacerbation. General: Denies: Chills, Fatigue, Malaise, Night Sweats, Normal Appetite, Other Symptoms, ROS Unobtainable Constitutional: Denies: Chills, Fatigue, Fever, Lethargy, Malaise, Night Sweats , Other, Weakness, Weight Loss Eyes: Denies: Conjunctivae inflammation, Eyelid inflammation, Other, Pain, Redness, Vision change ENT: Denies: Dysphagia, Ear Pain, Epistaxis, Head Aches, Other Symptoms, Post Nasal Drip, Sinus Congestion, Sore Throat Skin: Denies: Breakdown, Bruising, Dry, Itching, Jaundice, Lesions, Nail Changes, Other, Rash Pulmonary: Reports: Cough, Dyspnea, Denies: Other Symptoms, Pleuritic Chest Pain Cardiovascular: Denies: Chest Pain, Edema, Lt Headedness, Orthopnea, Other Symptoms, Palpitations, Paroxysmal Noc. Dyspnea Gastrointestinal: Denies: Abdominal Pain, Constipation, Diarrhea, Hematochezia , Melena, Nausea, Other Symptoms, Vomiting Genitourinary: Denies: Dysuria, Frequency, Hematuria, Incontinence, Other Symptoms, Retention Objective Physical Examination General Exam: Positive: Alert, Cooperative, No Acute Distress Eye Exam: Positive: Conjunctiva & lids normal, EOMI, PERRLA, Negative: Sclera icteric ENT Exam: Positive: Atraumatic, Mucous membr. moist/pink Neck Exam: Negative: JVD Chest Exam: Positive: Wheezing, Negative: Rales, Rhonchi Heart Exam: Positive: Normal S1, Normal S2, Rate Normal, Regular Rhythm Abdomen Exam: Positive: Normal bowel sounds, Soft, Negative: Tenderness Extremity Exam: Negative: Edema, Swelling, Tenderness Psych Exam: Positive: Mental status NL, Oriented x 3 Assessment /Plan Problems (1) Dyspnea Onset Date: 08/22/2014 Status: Acute Response to Treatment: Progressing Discussed With: Patient Problem Specific Plan: Monitor Clinically Problem Text: Breathing feels better, cough improved. (2) Hypoxia Status: Acute Response to Treatment: Progressing Discussed With: Patient Problem Specific Plan: Monitor Clinically Problem Text: Continues to improve, saturating well on room air this morning. (3) COPD exacerbation Onset Date: 08/22/2014 Status: Acute Response to Treatment: Progressing Discussed With: Patient Problem Specific Plan: Monitor Clinically Problem Text: Continue with supplemental oxygen as needed, nebulizers, taper steroids, IS, acapella. Taper IV steroids today, transition to PO tomorrow. (4) Anemia Status: Chronic Discussed With: Patient Problem Specific Plan: Monitor Clinically, Repeat Labs (5) CAD (coronary artery disease) Status: Chronic Discussed With: Patient Problem Specific Plan: Monitor Clinically (6) HTN (hypertension) Status: Chronic Discussed With: Patient Problem Specific Plan: Monitor Clinically (7) Dyslipidemia Status: Chronic Discussed With: Patient (8) GERD (gastroesophageal reflux disease) Status: Chronic Discussed With: Patient (9) DJD (degenerative joint disease) Status: Chronic Discussed With: Patient (10) Osteoarthritis Status: Chronic Discussed With: Patient Plan/VTE VTE Prophylaxis Ordered?: Yes Plan Diet: Continue Current Activity: Continue Current Therapy: PT Medications: Taper Steroids Respiratory: Wean Oxygen Diagnostics: Repeat Labs in AM Anticipated Discharge: Home, Home With Services Taper steroids, transition to PO. Small increase in creatinine, check UA. Leukocytosis likely secondary to steroids. Disposition Anticipating discharge in 24 hours. VS, I&O, 24H, [facility] Vital Signs/I&O Vital Signs Date Time Temp Pulse Resp B/P Pulse Ox O2 Delivery O2 Flow Rate FiO2 01/17/17 05:50 98.1 104 17 137/81 90 Room Air 01/16/17 20:05 2.0 I&O- Last 24 Hours up to 6 AM 01/17/17 05:59 Intake Total 1680 ml Output Total 1500 ml Balance 180 ml Laboratory Data 24H LABS Laboratory Tests 2 01/17/17 05:28: Anion Gap 10, Blood Urea Nitrogen 22H, Creatinine 1.03H, Sodium Level 144, Potassium Level 4.2, Chloride Level 108H, Carbon Dioxide Level 26, Calcium Level 9.3, Glomerular Filtration Rate 53.7 CBC/BMP Laboratory Tests 01/17/17 05:28 Calcium Level 9.3, Red Blood Count 4.39, Mean Corpuscular Volume 78.2 L, Mean Corpuscular Hemoglobin 23.2 L, Mean Corpuscular Hemoglobin Concent 29.7 L, Red Cell Distribution Width 19.7 H Microbiology Microbiology 01/15/17 Influenza Virus Type A Antigen - Final, Complete 01/15/17 Influenza Virus Type B Antigen - Final, Complete 01/15/17 Respiratory Virus Panel (PCR) ([facility]) - Final, Complete LETY JOHNSON MD Jan 17, 2017 09:01
[2017-01-17] MEDS: ASPIRIN 81 MG ENTERIC TAB PO SCH (09:39)
[2017-01-17] MEDS: methylPREDNISolone INJ 40 MG/1 ML VIAL (J2920) IV SCH ×2 (09:39→21:36)
[2017-01-17] MEDS: MIRALAX *UNIT DOSE* 17GM PACKET PO SCH (09:39)
[2017-01-17] MEDS: FLUTICASONE PROP 0.05% NASAL SPRAY 16 GM (FLONASE) SCH ×2 (09:39→21:37)
[2017-01-17] MEDS: PANTOPRAZOLE 40MG TAB (PROTONIX) PO SCH ×2 (09:40→21:37)
[2017-01-17] MEDS: METOPROLOL TART 25 MG TABLET PO SCH ×2 (09:40→21:37)
[2017-01-17 14:00] VITALS: BP 135/65
[2017-01-17] MEDS: ACETAMINOPHEN TAB 650MG DOSE (2X325MG) PO PRN (15:26)
[2017-01-17 20:55] VITALS: BP 142/89
[2017-01-17] MEDS: ATORVASTATIN 20 MG TAB PO SCH (21:37)
[2017-01-17] MEDS: GABAPENTIN 300 MG CAP PO SCH (21:37)
[2017-01-18] MEDS: IPRATROPIUM 0.5MG/ALBUTEROL 2.5MG INH SOL UD 3ML (DUONEB)(J7620) NEB SCH ×4 (01:59→20:00)
[2017-01-18] MEDS: HEPARIN SOD (PORCINE) 5000 UNITS/ML VIAL SC SCH ×3 (05:30→21:37)
[2017-01-18 05:57] LABS: MEAN CORPUSCULAR HGB CONC 29.3 g/dl (32.0-36.5); MEAN CORPUSCULAR VOLUME 78.4 fl (80.0-96.0); RED CELL DISTRIBUTION WIDTH 20.1 % (11.5-14.5); WHITE BLOOD COUNT 14.4 K/mm3 (4.0-10.0)
[2017-01-18 06:00] VITALS: BP 155/83
[2017-01-18 06:07] LABS: CREATININE FOR GFR 1.13 MG/DL (0.55-1.02); GLOMERULAR FILTRATION RATE 48.3 (>32); POTASSIUM SERUM 3.9 MEQ/L (3.5-5.1)
[2017-01-18] MEDS: ADVAIR DISKUS 250/50 INH PWD INH SCH ×2 (07:21→19:21)
[2017-01-18] MEDS: FLUTICASONE PROP 0.05% NASAL SPRAY 16 GM (FLONASE) SCH ×2 (09:06→20:05)
[2017-01-18] MEDS: MIRALAX *UNIT DOSE* 17GM PACKET PO SCH (09:06)
[2017-01-18] MEDS: PANTOPRAZOLE 40MG TAB (PROTONIX) PO SCH ×2 (09:06→20:05)
[2017-01-18] MEDS: ASPIRIN 81 MG ENTERIC TAB PO SCH (09:06)
[2017-01-18] MEDS: METOPROLOL TART 25 MG TABLET PO SCH ×2 (09:07→20:05)
[2017-01-18] MEDS: predniSONE 20 MG TAB PO SCH (09:07)
--- NOTE | 2017-01-18 09:36 | IPNPDOC ---
Subjective Date Seen The patient was seen on 01/18/17. Subjective Chief Complaint/HPI The patient is a 89-year-old female admitted with a reason for visit of Copd Exacerbation. General: Denies: Chills, Fatigue, Malaise, Night Sweats, Normal Appetite, Other Symptoms, ROS Unobtainable Constitutional: Denies: Chills, Fatigue, Fever, Lethargy, Malaise, Night Sweats , Other, Weakness, Weight Loss Eyes: Denies: Conjunctivae inflammation, Eyelid inflammation, Other, Pain, Redness, Vision change ENT: Denies: Dysphagia, Ear Pain, Epistaxis, Head Aches, Other Symptoms, Post Nasal Drip, Sinus Congestion, Sore Throat Skin: Denies: Breakdown, Bruising, Dry, Itching, Jaundice, Lesions, Nail Changes, Other, Rash Pulmonary: Reports: Cough (increasingly productive of clear/yellow sputum), Dyspnea, Denies: Other Symptoms, Pleuritic Chest Pain Cardiovascular: Denies: Chest Pain, Edema, Lt Headedness, Orthopnea, Other Symptoms, Palpitations, Paroxysmal Noc. Dyspnea Gastrointestinal: Denies: Abdominal Pain, Constipation, Diarrhea, Hematochezia , Melena, Nausea, Other Symptoms, Vomiting Genitourinary: Reports: Frequency, Denies: Dysuria, Hematuria, Incontinence, Other Symptoms, Retention Objective Physical Examination General Exam: Positive: Alert, Cooperative, No Acute Distress Eye Exam: Positive: Conjunctiva & lids normal, EOMI, PERRLA, Negative: Sclera icteric ENT Exam: Positive: Atraumatic, Mucous membr. moist/pink Neck Exam: Negative: JVD Chest Exam: Positive: Normal air movement, Wheezing, Negative: Rales, Rhonchi Heart Exam: Positive: Normal S1, Normal S2, Rate Normal, Regular Rhythm Abdomen Exam: Positive: Normal bowel sounds, Soft, Negative: Tenderness Extremity Exam: Negative: Edema, Swelling, Tenderness Psych Exam: Positive: Anxiety, Mental status NL, Oriented x 3 Assessment /Plan Problems (1) Dyspnea Onset Date: 08/22/2014 Status: Acute Response to Treatment: Progressing Discussed With: Patient Problem Specific Plan: Monitor Clinically Problem Text: Today complaining of worsening productive cough. (2) Hypoxia Status: Acute Response to Treatment: Progressing Discussed With: Patient Problem Specific Plan: Monitor Clinically Problem Text: Continues to improve, saturating well on room air this morning. (3) COPD exacerbation Onset Date: 08/22/2014 Status: Acute Response to Treatment: Progressing Discussed With: Patient Problem Specific Plan: Monitor Clinically Problem Text: Continue with supplemental oxygen as needed, nebulizers, mucolytics, IS, acapella. PO steroids. (4) Anemia Status: Chronic Discussed With: Patient Problem Specific Plan: Monitor Clinically, Repeat Labs (5) CAD (coronary artery disease) Status: Chronic Discussed With: Patient Problem Specific Plan: Monitor Clinically Problem Text: Continue lopressor, lipitor, ASA. (6) HTN (hypertension) Status: Chronic Discussed With: Patient Problem Specific Plan: Monitor Clinically Problem Text: Continue lopressor. (7) Dyslipidemia Status: Chronic Discussed With: Patient Problem Text: Lipitor. (8) GERD (gastroesophageal reflux disease) Status: Chronic Discussed With: Patient Problem Text: Protonix. (9) DJD (degenerative joint disease) Status: Chronic Discussed With: Patient (10) Osteoarthritis Status: Chronic Discussed With: Patient Plan/VTE VTE Prophylaxis Ordered?: Yes Plan Diet: Continue Current Activity: Continue Current Therapy: PT Medications: Taper Steroids Diagnostics: Repeat Labs in AM Anticipated Discharge: Home, Home With Services Still needs eval/treat from PT. Complaining of polyuria, UA yesterday negative. Will repeat. Increasing cough - mucolytics, acapella, sputum culture. VS, I&O, 24H, [facility] Vital Signs/I&O Vital Signs Date Time Temp Pulse Resp B/P Pulse Ox O2 Delivery O2 Flow Rate FiO2 01/18/17 09:07 97 158/78 01/18/17 06:00 99.4 17 92 Room Air 01/16/17 20:05 2.0 I&O- Last 24 Hours up to 6 AM 01/18/17 06:00 Intake Total 980 ml Output Total 2250 ml Balance -1270 ml Laboratory Data 24H LABS Laboratory Tests 2 01/17/17 11:56: Urine Amorphous Sediment , Urine Appearance CLEAR, Urine Color YELLOW, Urine pH 5.0, Urine Specific [place] 1.016, Urine Protein NEGATIVE, Urine Glucose (UA) 3+ H, Urine Ketones NEGATIVE, Urine Urobilinogen 0.2, Urine Bilirubin NEGATIVE, Urine Leukocyte Esterase NEGATIVE, Urine Bacteria (Auto) NEGATIVE, Urine Blood NEGATIVE, Urine Calcium Carbonate Cryst(Auto) , Urine Calcium Oxalate Cryst ( Auto) , Urine Calcium Phosphate Allison (Auto) , Urine Cellular Casts , Urine Cystine Crystals , Urine Granular Casts (Auto) , Urine Hyaline Casts (Auto) 0, Urine Leucine Crystals , Urine Mucus (Auto) , Urine Nitrite NEGATIVE, Urine Oval Fat Bodies (Auto) , Urine RBC (Auto) 0, Urine Renal Epithelial Cells , Urine Sperm (Auto) , Urine Squamous Epithelial Cells 0, Urine Transitional Epithelial Cells , Urine Trichomonas (Auto) , Urine Triple Phosphate Cryst (Auto ) , Urine Tyrosine Crystals , Urine Uric Acid Crystals (Auto) , Urine WBC (Auto ) 1, Urine Waxy Casts (Auto) , Urine Yeast-Like Cells (Auto) 01/18/17 05:20: Anion Gap 9, Blood Urea Nitrogen 28H, Creatinine 1.13H, Sodium Level 144, Potassium Level 3.9, Chloride Level 108H, Carbon Dioxide Level 27, Calcium Level 9.0, Glomerular Filtration Rate 48.3 CBC/BMP Laboratory Tests 01/18/17 05:20 Calcium Level 9.0, Red Blood Count 4.38, Mean Corpuscular Volume 78.4 L, Mean Corpuscular Hemoglobin 23.0 L, Mean Corpuscular Hemoglobin Concent 29.3 L, Red Cell Distribution Width 20.1 H Microbiology Microbiology 01/15/17 Influenza Virus Type A Antigen - Final, Complete 01/15/17 Influenza Virus Type B Antigen - Final, Complete 01/15/17 Respiratory Virus Panel (PCR) ([facility]) - Final, Complete LETY JOHNSON MD Jan 18, 2017 09:36
[2017-01-18 14:00] VITALS: BP 162/80
[2017-01-18] MEDS: GABAPENTIN 300 MG CAP PO SCH (20:04)
[2017-01-18] MEDS: ATORVASTATIN 20 MG TAB PO SCH (20:04)
[2017-01-18 22:00] VITALS: BP 152/86
[2017-01-19] MEDS: IPRATROPIUM 0.5MG/ALBUTEROL 2.5MG INH SOL UD 3ML (DUONEB)(J7620) NEB SCH ×2 (00:10→07:53)
[2017-01-19] MEDS: HEPARIN SOD (PORCINE) 5000 UNITS/ML VIAL SC SCH (05:27)
[2017-01-19 06:00] VITALS: BP 140/71
[2017-01-19 06:07] LABS: MEAN CORPUSCULAR HEMOGLOBIN 22.5 pg (27.0-33.0); MEAN CORPUSCULAR HGB CONC 29.4 g/dl (32.0-36.5); MEAN CORPUSCULAR VOLUME 76.6 fl (80.0-96.0); RED CELL DISTRIBUTION WIDTH 19.5 % (11.5-14.5); WHITE BLOOD COUNT 8.2 K/mm3 (4.0-10.0)
[2017-01-19 06:21] LABS: CALCIUM LEVEL 8.7 MG/DL (8.8-10.2); CREATININE FOR GFR 0.98 MG/DL (0.55-1.02); GLOMERULAR FILTRATION RATE 56.9 (>32); POTASSIUM SERUM 3.5 MEQ/L (3.5-5.1)
[2017-01-19] MEDS: ADVAIR DISKUS 250/50 INH PWD INH SCH (07:52)
[2017-01-19] MEDS: FLUTICASONE PROP 0.05% NASAL SPRAY 16 GM (FLONASE) SCH (09:42)
[2017-01-19] MEDS: MIRALAX *UNIT DOSE* 17GM PACKET PO SCH (09:42)
[2017-01-19] MEDS: predniSONE 20 MG TAB PO SCH (09:42)
[2017-01-19] MEDS: ASPIRIN 81 MG ENTERIC TAB PO SCH (09:42)
[2017-01-19] MEDS: PANTOPRAZOLE 40MG TAB (PROTONIX) PO SCH (09:42)
[2017-01-19 09:43] VITALS: BP 140/71
[2017-01-19] MEDS: METOPROLOL TART 25 MG TABLET PO SCH (09:43)
[2017-01-19] MEDS ORDERED: GUAI20TA PO (10:02)
[2017-01-19] MEDS ORDERED: CIPR500T3 PO (10:02)
[2017-01-19] MEDS ORDERED: PRED10PA2 PO (10:05)
--- NOTE | 2017-01-19 11:20 | DS.PDOC ---
Discharge Summary General Date of Admission Jan 15, 2017 at 16:28 Date of Discharge Discharge Summary Consults: Discharge diagnosis: Secondary diagnosis: Hospital course: Progress note on date of discharge: Subjective: Objective: Vitals: Gen.: [Patient awake, alert and oriented, verbal and able to answer questions appropriately. He does not appear to be in any acute distress] Heart: [Regular rate and rhythm, normal S1-S2. No murmurs, rubs, clicks or gallops] Lungs: [Clear to auscultation bilaterally. No wheezes, rales or rhonchi] Abdomen: [Active bowel sounds, soft, nontender, no masses to palpation] Labs: Assessment: Disposition: Follow-up: Activity: Diet: Medications on discharge: Cc: Time spent on discharge: Vital Signs/I&Os Vital Signs Date Time Temp Pulse Resp B/P Pulse Ox O2 Delivery O2 Flow Rate FiO2 01/19/17 09:43 74 140/71 01/19/17 06:00 98.5 20 96 Room Air 01/16/17 20:05 2.0 I&O- Last 24 Hours up to 6 AM 01/19/17 06:00 Intake Total 1360 ml Output Total 2250 ml Balance -890 ml Laboratory Data Labs 24H Laboratory Tests 2 01/18/17 11:33: Urine Amorphous Sediment , Urine Appearance CLEAR, Urine Color YELLOW, Urine pH 5.0, Urine Specific [place] 1.017, Urine Protein NEGATIVE, Urine Glucose (UA) 1+ H, Urine Ketones NEGATIVE, Urine Urobilinogen 0.2, Urine Bilirubin NEGATIVE, Urine Leukocyte Esterase 2+H, Urine Bacteria (Auto) NEGATIVE, Urine Blood 1+H, Urine Calcium Carbonate Cryst(Auto) , Urine Calcium Oxalate Cryst (Auto) , Urine Calcium Phosphate Allison (Auto) , Urine Cellular Casts , Urine Cystine Crystals , Urine Granular Casts (Auto) , Urine Hyaline Casts (Auto) 0, Urine Leucine Crystals , Urine Mucus (Auto) SMALL, Urine Nitrite NEGATIVE, Urine Oval Fat Bodies (Auto) , Urine RBC (Auto) 0, Urine Renal Epithelial Cells , Urine Sperm (Auto) , Urine Squamous Epithelial Cells 0, Urine Transitional Epithelial Cells , Urine Trichomonas (Auto) , Urine Triple Phosphate Cryst (Auto) , Urine Tyrosine Crystals , Urine Uric Acid Crystals (Auto) , Urine WBC (Auto) 3, Urine Waxy Casts (Auto) , Urine Yeast-Like Cells (Auto) 01/19/17 05:26: Anion Gap 9, Blood Urea Nitrogen 25H, Creatinine 0.98, Sodium Level 147H, Potassium Level 3.5, Chloride Level 110H, Carbon Dioxide Level 28, Calcium Level 8.7L, Glomerular Filtration Rate 56.9 CBC/BMP Laboratory Tests 01/19/17 05:26 Calcium Level 8.7 L, Red Blood Count 4.26, Mean Corpuscular Volume 76.6 L, Mean Corpuscular Hemoglobin 22.5 L, Mean Corpuscular Hemoglobin Concent 29.4 L, Red Cell Distribution Width 19.5 H Microbiology Microbiology 01/18/17 Gram Stain, Ordered Pending 01/18/17 Sputum Culture, Ordered Pending 01/15/17 Influenza Virus Type A Antigen - Final, Complete 01/15/17 Influenza Virus Type B Antigen - Final, Complete 01/15/17 Respiratory Virus Panel (PCR) ([facility]) - Final, Complete 01/19/17 Urine Culture, Received Pending Discharge Medications Scheduled (Flonase Allergy Relief) 50 Mcg/Act Spr 1 SPRAY NA BID (Reported) PATIENT IS ALL OUT (Preservision Areds) 1 Tab Tab 2 TAB PO BID (Reported) Aspirin (Aspir-81) 81 Mg Tab 81 MG PO DAILY (Reported) Atorvastatin Calcium (Atorvastatin Calcium) 20 Mg Tab 20 MG PO QHS (Reported) Carboxymethylcellulose Sod (Refresh Celluvisc) 0.4 Ml Soln 1 DROP OU BID ( Reported) PATIENT IS ALL OUT Cholecalciferol (Vitamin D) 1,000 Unit Tab 1,000 UNIT PO DAILY (Reported) Ciprofloxacin HCl (Ciprofloxacin HCl) 500 Mg Tab 500 MG PO BID Furosemide (Furosemide) 20 Mg Tab 20 MG PO DAILY (Reported) Gabapentin (Gabapentin) 300 Mg Cap 300 MG PO QHS (Reported) Ipratropium [place] (Atrovent Hfa) 200 Puff/12.9 Gm Aers 2 PUFF INH QID ( Reported) Metoprolol Tartrate (Metoprolol Tartrate) 25 Mg Tab 25 MG PO BID (Reported) Pantoprazole Sodium (Pantoprazole Sodium) 40 Mg Tab 40 MG PO BID (Reported) Polyethylene Glycol (Miralax) 1 Pow Pow 17 GM PO DAILY (Reported) Prednisone (Prednisone) 10 Mg Dominick 10 MG PO ASDIRECTED Salmeterol/Fluticasone (Advair Diskus 250-50 Mcg/Dose) 14 Puff/Inhaler Aerp 1 PUFF INH BID (Reported) Scheduled PRN Acetaminophen/Hydrocodone (Hydrocodone/Acetaminophen 5-325 mg) 1 Tab Tab 1 TAB PO Q4H PRN PRN PAIN (Reported) PATIENT HAS BEEN OUT FOR ABOUT 1 WEEK Guaifenesin (Guaifenesin) 200 Mg Tab 200 MG PO Q8HP PRN PRN CONGESTION Nitroglycerin (Nitrostat) 0.4 Mg Subl 0.4 MG SL NITRO PRN PRN CHEST PAIN ( Reported) Allergies Coded Allergies: Erythromycin (Verified Allergy, Intermediate, RASH AND ACHEY, 01/31/13) Penicillins (Verified Allergy, Intermediate, RASH AND HIVES, 01/31/13) Pneumococcal Vaccine (Verified Adverse Reaction, Intermediate, SLIGHT SKIN IRRITATION, 01/31/13) Sulfa Drugs (Verified Adverse Reaction, Intermediate, CONFUSION, 01/31/13) ANDRÉS STRONG OGME-1 Jan 19, 2017 11:20
== END 2017-01-19 11:59 | disposition home or self-care (01) | DRG 192 ==
LOC: EDBD 05:20 → M ED 08:20 → M ED INP 16:28 → M MSPAV 18:20
PROVIDERS: ADMIT Internal Medicine; ATTEND Internal Medicine
DX: J44.1 Chronic obstructive pulmonary disease with (acute) exacerbation (principal); J06.9 Acute upper respiratory infection, unspecified; K21.9 Gastro-esophageal reflux disease without esophagitis; E78.5 Hyperlipidemia, unspecified; I25.10 Atherosclerotic heart disease of native coronary artery without angina pectoris; I10 Essential (primary) hypertension; D64.9 Anemia, unspecified; M19.90 Unspecified osteoarthritis, unspecified site; Z87.891 Personal history of nicotine dependence; Z88.2 Allergy status to sulfonamides; Z88.0 Allergy status to penicillin; Z79.82 Long term (current) use of aspirin; Z79.899 Other long term (current) drug therapy

== ENCOUNTER → 2017-02-04 | Outpatient (REF) | payer MEDICARE ==
[~2017-02-04] MED LIST changes: +CELLOPD OU; +CIPR500T3 PO; +FLON1SPR; +FURO20TA2 PO; +GABA-282 PO; -GABA300C3 PO; +GUAI20TA PO; +IPRAINH INH; +METO12TA PO; +MIRA33504 PO; +OCUVTAB4 PO; +PRED10PA2 PO; +VITA100037 PO; +VITA100066 PO
[2017-02-04 13:23] LABS: REASON FOR REVIEW COMPREHENSIVE REVIEW
[2017-02-04 13:25] LABS: RETIC HEMOGLOBIN CONTENT CHr 26.5 PG (24-36); RETICULOCYTE ABSOLUTE ADVIA212 129 x10(9)/L (17-77)
[2017-02-04 14:13] LABS: BILIRUBIN,DIRECT 0.1 MG/DL (0.0-0.2); FERRITIN 14 NG/ML (8-252); PERCENT SATURATION 12.7 % (13.2-37.4); TOTAL IRON BINDING CAPACITY 401 UG/DL (250-450); TOTAL PROTEIN 6.5 GM/DL (6.4-8.2)
[2017-02-05 12:09] LABS: ALBUMIN 3.61 GM/DL (3.29-5.55); ALBUMIN % 55.5 % (55.8-66.1); GAMMA GLOBULIN % 12.8 % (11.1-18.8)
[2017-02-08 00:06] LABS: FREE KAPPA LIGHT CHAINS SERUM 29.42 mg/L (3.30-19.40); FREE LAMBDA LIGHT CHAINS SERUM 22.02 mg/L (5.71-26.30); KAPPA/LAMBDA RATIO SERUM 1.34 (0.26-1.65)
== END ==
LOC: M LAB REF 12:50
PROVIDERS: ATTEND Internal Medicine Medical Oncology
DX: D50.9 Iron deficiency anemia, unspecified (principal)

== ENCOUNTER 2017-03-12 08:00 | Observation (INO) | payer MEDICARE ==
[~2017-03-12] VITALS: Ht 149.9 cm; Wt 57.8 kg
[2017-03-12] MEDS ORDERED: MORPHINE 2 MG/ML 1ML SYRINGE IV PRN ×2 (08:15→12:45)
[2017-03-12] MEDS ORDERED: ONDANSETRON 4MG/2ML VIAL (J2405) IV ONE (08:15)
--- NOTE | 2017-03-12 08:21 | ECGEPIP ---
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
[2017-03-12] MEDS ORDERED: ADV250INH INH (08:23)
[2017-03-12] MEDS ORDERED: ATRO0.063 (08:23)
[2017-03-12] MEDS: NS 1,000 ML IV SCH ×2 (08:50→21:59)
[2017-03-12] MEDS: METOPROLOL TART 25 MG TABLET PO SCH ×2 (09:00→20:12)
[2017-03-12 09:39] LABS: ALBUMIN 3.2 GM/DL (3.2-5.2); ALBUMIN/GLOBULIN RATIO 0.86 (1.00-1.93); ALKALINE PHOSPHATASE 56 U/L (45-117); ALT/SGPT 16 U/L (12-78); ANION GAP 8 MEQ/L (8-16); AST/SGOT 15 U/L (15-37); BILIRUBIN,DIRECT < 0.1 MG/DL (0.0-0.2); BILIRUBIN,TOTAL 0.3 MG/DL (0.2-1.0); BLOOD UREA NITROGEN 15 MG/DL (7-18); CALCIUM LEVEL 8.6 MG/DL (8.8-10.2); CARBON DIOXIDE LEVEL 29 MEQ/L (21-32); CHLORIDE LEVEL 106 MEQ/L (98-107); CREATININE FOR GFR 0.99 MG/DL (0.55-1.02); GLOMERULAR FILTRATION RATE 56.2 (>32); GLUCOSE, FASTING 110 MG/DL (83-110); POTASSIUM SERUM 3.5 MEQ/L (3.5-5.1); SODIUM LEVEL 143 MEQ/L (136-145); TOTAL PROTEIN 6.9 GM/DL (6.4-8.2)
[2017-03-12] MEDS ORDERED: IPRATROPIUM 0.5MG/ALBUTEROL 2.5MG INH SOL UD 3ML (DUONEB)(J7620) NEB ONE (10:15)
[2017-03-12 10:16] LABS: BASO # 0.1 K/mm3 (0.0-0.2); BASO % 0.7 % (0.0-1.0); EOS # 0.2 K/mm3 (0.0-0.50); EOS % 1.9 % (0.0-3.0); LARGE UNSTAINED CELL # 0.1 K/mm3 (0.0-0.4); LARGE UNSTAINED CELL % 1.1 % (0.0-4.0); LYMPH # 0.7 K/mm3 (1.5-4.5); LYMPH % 7.4 % (24.0-44.0); MEAN CORPUSCULAR HEMOGLOBIN 23.6 pg (27.0-33.0); MEAN CORPUSCULAR HGB CONC 30.2 g/dl (32.0-36.5); MEAN CORPUSCULAR VOLUME 78.3 fl (80.0-96.0); MONO # 0.3 K/mm3 (0.0-0.8); MONO % 3.7 % (0.0-5.0); NEUTROPHILS # 6.7 K/mm3 (1.8-7.7); NEUTROPHILS % 85.2 % (36.0-66.0); PLATELET COUNT, AUTOMATED 418 k/mm3 (150-450); RED CELL DISTRIBUTION WIDTH 18.7 % (11.5-14.5); WHITE BLOOD COUNT 7.8 K/mm3 (4.0-10.0)
[2017-03-12] MEDS ORDERED: ISOVUE-370 76% 100ML VIAL (Q9967) As Ordered ONE (10:16)
[2017-03-12 10:19] LABS: ADD MORPHOLOGY? YES
[2017-03-12 10:21] LABS: HYPOCHROMASIA 2+; MICROCYTOSIS 1+
[2017-03-12 10:22] LABS: ANISOCYTOSIS 2+
--- NOTE | 2017-03-12 11:08 | REP ---
Clinical: Abdominal pain. Technique: Axial contrast enhanced images from the lung bases to the pubic symphysis using 100 ml Isovue 370 intravenous contrast material with coronal and sagittal re-formations. Comparison: 01/09/2015. Findings: Lung bases demonstrate cardiomegaly along with atherosclerotic changes to the thoracic aorta and coronary arteries and densely calcified mediastinal lymph nodes. Lingular and bibasilar atelectasis noted. Moderate hiatal hernia identified. Liver, gallbladder, pancreas, bilateral adrenal glands are normal. Splenic calcifications are consistent with prior granulomatous disease. Kidneys demonstrate bilateral hypodensities compatible with cysts measuring up to 1.8 cm diameter. The enteric system is without obstruction or acute inflammatory process. Normal terminal ileum identified in the right lower quadrant. Colonic and sigmoid diverticulosis noted without acute diverticulitis. Pelvis demonstrates normal bladder and evidence for prior hysterectomy. No ascites. No obvious adenopathy. Atherosclerotic changes of the aorta and vasculature noted without aneurysm. Musculoskeletal structures demonstrate degenerative changes without focal osseous abnormality. Impression: 1. No evidence for acute abdominopelvic process or pathology. 2. Lung bases demonstrate cardiomegaly, basilar atelectasis, moderate hiatal hernia and evidence for prior granulomatous disease. 3. Renal cysts measuring up to 1.8 cm diameter. 4. Colonic diverticulosis without acute diverticulitis. 5. Atherosclerotic changes to the vasculature and degenerative changes the musculoskeletal structures. 6. No free fluid/ascites. Signed by Geraldo Wheeler MD 03/12/2017 10:59 A
[2017-03-12] MEDS ORDERED: ONDANSETRON 4MG/2ML VIAL (J2405) IV PRN (12:45)
[2017-03-12] MEDS ORDERED: IPRAINH INH (13:52)
[2017-03-12] MEDS ORDERED: CIPR500T3 PO (13:52)
[2017-03-12] MEDS ORDERED: FURO20TA2 PO (13:53)
[2017-03-12] MEDS ORDERED: VITA-122 PO (13:56)
[2017-03-12] MEDS ORDERED: REFR0.5D8 OU (13:56)
[2017-03-12] MEDS ORDERED: PRESCAP6 PO (13:56)
[2017-03-12] MEDS ORDERED: MIRA33504 PO (13:59)
[2017-03-12] MEDS ORDERED: IPRATROPIUM HFA INHALER 12.9 GRAMS (ATROVENT HFA) INH PRN (14:15)
--- NOTE | 2017-03-12 14:24 | HPEPDOC ---
Medical History and Physical Date of Admission March 12, 2017 at 12:38 History and Physical ATTENDING: Dr. Pacheco PCP: Dr Holman CC: abdominal pain. HPI: 89-year-old female with past medical history of chronic anemia, GERD, hypertension, CAD status post stents in the past, dyslipidemia, osteoarthritis, degenerative disc disease, and COPD presented to the ER with a chief complaint of abdominal pain since Thursday. The patient states that during this time she has been having a nausea, no vomiting, decreased appetite, CESAR, and diarrhea. No melena/hematochezia. The patient subjectively reports fevers or chills, also notes that she has been feeling generalized fatigue and lethargy during this time. The patient denies any acute complaints of lightheadedness, dizziness, chest palpitations, orthopnea, PND, lower extremity swelling. Denies any change in bladder habits. Upon presentation to the hospital the patient was found to have dehydration, gastroenteritis, thus the hospitalist team was consulted. 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 PE: GEN: 89yoF, appears stated age. Well-nourished, well developed. No acute distress. Alert and oriented x 3. Pleasant, interactive. HEENT: Normocephalic, atraumatic. Pupils are equal, round, and reactive to light. Extraocular movements are intact. No nystagmus appreciated. Sclera are nonicteric. Conjunctiva without injection. Nose midline. Nasal turbinates without bogginess. EACs both patent BL. TMs both visualized and arreaga with good cone of light, no bulging or erythema. No facial asymmetry. Moist mucous membranes. Dentition poor. Pharynx pink and moist. Neck supple, trachea midline. No lymphadenopathy or thyromegaly appreciated. CHEST: Regular rate and rhythm, +S1, +S2 LUNGS: Clear to auscultation bilaterally. No wheezes, rales, or rhonchi. Breathing appears symmetric and easy. Patient is speaking in full sentences. No accessory muscle use. ABD: Round, soft, mild TTP diffusely, non-distended. +Bowel sounds throughout. No rebound or guarding. No costovertebral angle tenderness. EXT: Pulses 2+ bilaterally dorsalis pedis and radial. No lower extremity edema appreciated. SKIN: [place], dry, warm. Capillary refill <2sec. No rashes. NEURO: Alert and oriented x 3. Cranial nerves III-XII are intact. No focal deficits appreciated. CT: A/P 1. No evidence for acute abdominopelvic process or pathology. 2. Lung bases demonstrate cardiomegaly, basilar atelectasis, moderate hiatal hernia and evidence for prior granulomatous disease. 3. Renal cysts measuring up to 1.8 cm diameter. 4. Colonic diverticulosis without acute diverticulitis. 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 BLOOD CULTURES: pending A&P: 89-year-old female with past medical history of chronic anemia, GERD, hypertension, CAD status post stents in the past, dyslipidemia, osteoarthritis, degenerative disc disease, and COPD presented to the ER with a chief complaint of abdominal pain since Thursday. The patient states that during this time she has been having a nausea, no vomiting, decreased appetite, CESAR, and diarrhea. The patient will be admitted to /S for at least [address] Pacheco's service. Gastroenteritis/Dehydration. Full liq diet. BCx 2 pending. UA/UC pending. GI panel pending. IV Protonix/Carafate AC/HS, Zofran, Morphine prn. IVF given in ED. Lactic acidosis. Repeat WNL. Possible dehydration. CT as above. CAD/Stents. Metoprolol/ASA HTN. Metoprolol with hold parameters HLD. Diet as outpt COPD. Advair/Atrovent prn OA/Chronic LBP. PT pending. DVT prophylaxis. Lovenox. The patient is a Full code Vital Signs Vital Signs Date Time Temp Pulse Resp B/P (MAP) Pulse Ox O2 Delivery O2 Flow Rate FiO2 03/12/17 11:45 98 134/60 (84) 91 Nasal Cannula 3.0 03/12/17 09:00 16 03/12/17 08:15 98.2 Laboratory Data Labs 24H Laboratory Tests 2 03/12/17 08:45: White Blood Count 7.8, Red Blood Count 4.07, Hemoglobin 9.6L, Hematocrit 31.9L, Mean Corpuscular Volume 78.3L, Mean Corpuscular Hemoglobin 23.6L, Mean Corpuscular Hemoglobin Concent 30.2L, Red Cell Distribution Width 18.7H, Platelet Count 418, Neutrophils (%) (Auto) 85.2H, Lymphocytes (%) (Auto) 7.4L, Monocytes (%) (Auto) 3.7, Eosinophils (%) (Auto) 1.9, Basophils (%) (Auto) 0.7, Neutrophils # (Auto) 6.7, Lymphocytes # (Auto) 0.7L, Monocytes # (Auto) 0.3, Eosinophils # (Auto) 0.2, Basophils # (Auto) 0.1, Large Unclassified Cells % 1.1 , Large Unclassified Cells # 0.1, Platelet Estimate INCREASED, Hypochromasia 2+ , Anisocytosis 2+, Microcytosis 1+, Anion Gap 8, Glomerular Filtration Rate 56.2 , Lactic Acid Level 2.5*H, Calcium Level 8.6L, Aspartate Amino Transf (AST/SGOT ) 15, Alanine Aminotransferase (ALT/SGPT) 16, Alkaline Phosphatase 56, Total Bilirubin 0.3, Direct Bilirubin < 0.1, Total Creatine Kinase 80, Creatine Kinase MB 1.2, Creatine Kinase MB Relative Index 1.50, Troponin I < 0.02, Total Protein 6.9, Albumin 3.2, Albumin/Globulin Ratio 0.86L, Lipase 157 03/12/17 12:54: Lactic Acid Level 1.1 CBC/BMP Laboratory Tests 03/12/17 08:45 Red Blood Count 4.07, Mean Corpuscular Volume 78.3 L, Mean Corpuscular Hemoglobin 23.6 L, Mean Corpuscular Hemoglobin Concent 30.2 L, Red Cell Distribution Width 18.7 H, Neutrophils (%) (Auto) 85.2 H, Lymphocytes (%) (Auto ) 7.4 L, Monocytes (%) (Auto) 3.7, Eosinophils (%) (Auto) 1.9, Basophils (%) ( Auto) 0.7, Neutrophils # (Auto) 6.7, Lymphocytes # (Auto) 0.7 L, Monocytes # ( Auto) 0.3, Eosinophils # (Auto) 0.2, Basophils # (Auto) 0.1 Microbiology Microbiology 03/12/17 Blood Culture, Received Pending 03/12/17 Blood Culture, Received Pending Home Medications Scheduled (Preservision Areds 2) 1 Cap Cap, 2 CAP PO BID Aspirin (Aspir-81) 81 Mg Tab, 81 MG PO DAILY Cholecalciferol (Vitamin D3) 1,000 Unit Tab, 1,000 UNIT PO DAILY Ciprofloxacin HCl (Ciprofloxacin HCl) 500 Mg Tab, 500 MG PO BID Furosemide (Furosemide) 20 Mg Tab, 20 MG PO DAILY Gabapentin (Gabapentin) 300 Mg Cap, 300 MG PO QHS Metoprolol Tartrate (Metoprolol Tartrate) 25 Mg Tab, 25 MG PO BID Salmeterol/Fluticasone (Advair Diskus 250-50 Mcg/Dose) 14 Puff/Inhaler Aerp, 1 PUFF INH BID Scheduled PRN Acetaminophen/Hydrocodone (Hydrocodone/Acetaminophen 5-325 mg) 1 Tab Tab, 1 TAB PO Q4H PRN for PAIN Carboxymethylcellulose Sodium (Refresh Tears) 0.5 % Rod, 1 DROP OU PRN PRN for DRY EYES Ipratropium [place] (Atrovent Hfa) 200 Puff/12.9 Gm Aers, 2 PUFF INH Q4H PRN for SHORTNESS OF BREATH Polyethylene Glycol (Miralax) 1 Pow Pow, 17 GM PO DAILY PRN for CONSTIPATION Allergies Coded Allergies: Erythromycin (Verified Allergy, Intermediate, RASH AND ACHEY, 01/31/13) Penicillins (Verified Allergy, Intermediate, RASH AND HIVES, 01/31/13) Pneumococcal Vaccine (Verified Adverse Reaction, Intermediate, SLIGHT SKIN IRRITATION, 01/31/13) Sulfa Drugs (Verified Adverse Reaction, Intermediate, CONFUSION, 01/31/13) Gunjan Lopez March 12, 2017 14:24
[2017-03-12 15:30] VITALS: BP 136/65
[2017-03-12] MEDS: SUCRALFATE 1 GM TAB PO SCH ×2 (17:07→20:12)
[2017-03-12] MEDS: PANTOPRAZOLE 40MG INJ (PROTONIX) (C9113) IV SCH (17:07)
[2017-03-12] MEDS: ADVAIR DISKUS 250/50 INH PWD INH SCH ×2 (19:32→23:17)
[2017-03-12] MEDS: ACETAMINOPHEN TAB 650MG DOSE (2X325MG) PO PRN (20:13)
[2017-03-12 22:00] VITALS: BP 123/70
[2017-03-13] MEDS: NS 1,000 ML IV SCH (05:34)
[2017-03-13] MEDS: ACETAMINOPHEN TAB 650MG DOSE (2X325MG) PO PRN (05:35)
[2017-03-13 06:00] VITALS: BP 155/72
[2017-03-13 06:17] LABS: BASO # 0.1 K/mm3 (0.0-0.2); BASO % 0.9 % (0.0-1.0); EOS # 0.5 K/mm3 (0.0-0.50); LARGE UNSTAINED CELL # 0.1 K/mm3 (0.0-0.4); LYMPH # 1.1 K/mm3 (1.5-4.5); LYMPH % 17.3 % (24.0-44.0); MEAN CORPUSCULAR HEMOGLOBIN 23.3 pg (27.0-33.0); MEAN CORPUSCULAR HGB CONC 28.4 g/dl (32.0-36.5); MEAN CORPUSCULAR VOLUME 81.8 fl (80.0-96.0); MONO # 0.3 K/mm3 (0.0-0.8); MONO % 5.1 % (0.0-5.0); NEUTROPHILS # 4.4 K/mm3 (1.8-7.7); NEUTROPHILS % 67.7 % (36.0-66.0); PLATELET COUNT, AUTOMATED 405 k/mm3 (150-450); RED CELL DISTRIBUTION WIDTH 18.4 % (11.5-14.5); WHITE BLOOD COUNT 6.5 K/mm3 (4.0-10.0)
[2017-03-13 06:30] LABS: ANION GAP 4 MEQ/L (8-16); BLOOD UREA NITROGEN 9 MG/DL (7-18); CALCIUM LEVEL 7.5 MG/DL (8.8-10.2); CARBON DIOXIDE LEVEL 29 MEQ/L (21-32); CHLORIDE LEVEL 111 MEQ/L (98-107); CREATININE FOR GFR 0.84 MG/DL (0.55-1.02); GLOMERULAR FILTRATION RATE > 60.0 (>32); GLUCOSE, FASTING 86 MG/DL (83-110); POTASSIUM SERUM 3.7 MEQ/L (3.5-5.1); SODIUM LEVEL 144 MEQ/L (136-145)
[2017-03-13] MEDS: ADVAIR DISKUS 250/50 INH PWD INH SCH ×2 (07:32→19:42)
[2017-03-13] MEDS ORDERED: POTASSIUM CHLORIDE 10 MEQ SR TABLET PO ONE (08:00)
[2017-03-13] MEDS: ASPIRIN 81 MG ENTERIC TAB PO SCH (09:59)
[2017-03-13] MEDS: ENOXAPARIN 30 MG/0.3 ML SYR (J1650) SC SCH (10:01)
[2017-03-13] MEDS: METOPROLOL TART 25 MG TABLET PO SCH ×2 (10:01→20:12)
[2017-03-13] MEDS: SUCRALFATE 1 GM TAB PO SCH ×4 (10:03→20:10)
[2017-03-13] MEDS: PANTOPRAZOLE 40MG INJ (PROTONIX) (C9113) IV SCH (13:53)
[2017-03-13 14:00] VITALS: BP 150/70
--- NOTE | 2017-03-13 16:29 | IPNPDOC ---
Text Note Date of Service The patient was seen on 03/13/17. NOTE Subjective: Feels better. Denies any complaints. No more diarrhea. No N/V/Abd pain. Objective: Vitals: (see below) General: No acute distress, sitting comfortably in chair HEENT: Moist mucous membranes. Neck: No JVD or lymphadenopathy Cardiac: RRR, No murmurs Pulm: Clear to auscultation b/l. No wheezing, rhonchi Abd: NT/ND + BS. Ext: No edema or cyanosis. Labs (see below) Images: Assessment/Plan 1. Gastroenteritis and Dehydration. Diarrhea resolved. Tolerating full liquid, advance as tolerated. BCx 2 pending. GI panel pending. IV Protonix. PO Carafate. Zofran/Morphine PRN. D/c IVF. Just completed course of Cipro outpt. 2. Lactic acidosis - resolved. 2/2 dehydration. 3. CAD/Stents. Metoprolol/ASA 4. HTN - controlled. Metoprolol. 5. HLD - Diet as outpt. 6. COPD - Advair/Atrovent prn 7. OA/Chronic LBP - PT consulted. DVT prophylaxis - Lovenox VS,Fishbone, I+O VS, Fishbone, I+O Laboratory Tests 03/13/17 05:14 Red Blood Count 3.76 L, Mean Corpuscular Volume 81.8, Mean Corpuscular Hemoglobin 23.3 L, Mean Corpuscular Hemoglobin Concent 28.4 L, Red Cell Distribution Width 18.4 H, Neutrophils (%) (Auto) 67.7 H, Lymphocytes (%) (Auto ) 17.3 L, Monocytes (%) (Auto) 5.1 H, Eosinophils (%) (Auto) 7.0 H, Basophils (% ) (Auto) 0.9, Neutrophils # (Auto) 4.4, Lymphocytes # (Auto) 1.1 L, Monocytes # (Auto) 0.3, Eosinophils # (Auto) 0.5, Basophils # (Auto) 0.1, Calcium Level 7.5 L Vital Signs Date Time Temp Pulse Resp B/P (MAP) Pulse Ox O2 Delivery O2 Flow Rate FiO2 03/13/17 14:00 97.6 77 18 150/70 (96) 91 Nasal Cannula 3.0 I&O- Last 24 Hours up to 6 AM 03/13/17 06:00 Intake Total 810 ml Output Total 1050 ml Balance -240 ml HUMBERTO BARTH MD March 13, 2017 16:29
[2017-03-13 22:00] VITALS: BP 162/82
[2017-03-14] MEDS: ACETAMINOPHEN TAB 650MG DOSE (2X325MG) PO PRN ×2 (05:29→20:01)
[2017-03-14 06:00] VITALS: BP 168/80
[2017-03-14 06:17] LABS: BASO # 0.1 K/mm3 (0.0-0.2); BASO % 0.8 % (0.0-1.0); EOS # 0.4 K/mm3 (0.0-0.50); EOS % 5.5 % (0.0-3.0); LARGE UNSTAINED CELL # 0.1 K/mm3 (0.0-0.4); LARGE UNSTAINED CELL % 1.6 % (0.0-4.0); LYMPH # 1.3 K/mm3 (1.5-4.5); LYMPH % 16.5 % (24.0-44.0); MEAN CORPUSCULAR HGB CONC 28.9 g/dl (32.0-36.5); MEAN CORPUSCULAR VOLUME 79.5 fl (80.0-96.0); MONO # 0.3 K/mm3 (0.0-0.8); MONO % 4.7 % (0.0-5.0); PLATELET COUNT, AUTOMATED 411 k/mm3 (150-450); RED CELL DISTRIBUTION WIDTH 18.5 % (11.5-14.5)
[2017-03-14 06:26] LABS: ADD MORPHOLOGY? YES
[2017-03-14 06:52] LABS: ANISOCYTOSIS 2+; HYPOCHROMASIA 2+
[2017-03-14 06:56] LABS: ANION GAP 5 MEQ/L (8-16); BLOOD UREA NITROGEN 10 MG/DL (7-18); CALCIUM LEVEL 8.1 MG/DL (8.8-10.2); CARBON DIOXIDE LEVEL 29 MEQ/L (21-32); CHLORIDE LEVEL 109 MEQ/L (98-107); CREATININE FOR GFR 0.75 MG/DL (0.55-1.02); GLOMERULAR FILTRATION RATE > 60.0 (>32); GLUCOSE, FASTING 94 MG/DL (83-110); POTASSIUM SERUM 3.9 MEQ/L (3.5-5.1); SODIUM LEVEL 143 MEQ/L (136-145)
[2017-03-14] MEDS: ADVAIR DISKUS 250/50 INH PWD INH SCH ×2 (07:52→19:52)
[2017-03-14] MEDS: SUCRALFATE 1 GM TAB PO SCH ×4 (08:23→20:00)
[2017-03-14 10:00] VITALS: BP 160/80
[2017-03-14] MEDS: amLODIPine 5 MG TAB PO SCH (10:55)
[2017-03-14] MEDS: METOPROLOL TART 25 MG TABLET PO SCH ×2 (10:57→20:00)
[2017-03-14] MEDS: ASPIRIN 81 MG ENTERIC TAB PO SCH (11:27)
[2017-03-14] MEDS: ENOXAPARIN 30 MG/0.3 ML SYR (J1650) SC SCH (11:30)
[2017-03-14] MEDS: IPRATROPIUM 0.5MG/ALBUTEROL 2.5MG INH SOL UD 3ML (DUONEB)(J7620) NEB SCH ×3 (12:00→20:00)
[2017-03-14] MEDS ORDERED: ALBUTEROL SULFATE 2.5 MG/0.5 ML INH NEB SOLN INH PRN (12:00)
--- NOTE | 2017-03-14 12:23 | REP ---
Clinical: Hypoxia. Comparison: 01/15/2017. Findings: Mediastinum and cardiac silhouette are stable. Diffuse chronic interstitial changes are appreciated along with moderate hiatal hernia. Superimposed bibasilar infiltrate/atelectasis suggested (left greater than right). Impression: Chronic changes with suspected superimposed basilar atelectasis. Signed by Geraldo Wheeler MD 03/14/2017 12:14 P
[2017-03-14] MEDS ORDERED: FUROSEMIDE 40 MG/4 ML VIAL (J1940) IV ONE (13:00)
[2017-03-14 14:10] VITALS: BP 140/78
[2017-03-14] MEDS: PANTOPRAZOLE 40MG INJ (PROTONIX) (C9113) IV SCH (14:17)
--- NOTE | 2017-03-14 14:53 | IPNPDOC ---
Text Note Date of Service The patient was seen on 03/14/17. NOTE Subjective: Denies any complaints. No diarrhea. No N/V/Abd pain. Objective: Vitals: (see below) General: No acute distress, sitting comfortably in chair HEENT: Moist mucous membranes. Neck: No JVD or lymphadenopathy Cardiac: RRR, No murmurs Pulm: Coarse crackles at the bases b/l. No wheezing, rhonchi Abd: NT/ND + BS. Ext: No edema or cyanosis. Labs (see below) Images: CXR 03/14/17 Impression: Chronic changes with suspected superimposed basilar atelectasis. Assessment/Plan 1. Gastroenteritis and Dehydration. Diarrhea resolved. Diet advanced and tolerated. BCx 2 pending. IV Protonix. PO Carafate. Zofran/Morphine PRN. s/p IVF. Just completed course of Cipro outpt. 2. Hypoxia likely 2/2 COPD exacerbation - Started on Nebs. ? 2/2 Atelectasis - Incentive spirometer. ? infiltate - CT chest ordered 3. Lactic acidosis - resolved. 2/2 dehydration. 4. CAD/Stents. Metoprolol/ASA 5. HTN - controlled. Metoprolol. 6. HLD - Diet as outpt. 7. COPD - Advair/Atrovent prn DVT prophylaxis - Lovenox PT consulted. VS,Fishbone, I+O VS, Morganbone, I+O Laboratory Tests 03/14/17 05:24 Red Blood Count 3.82 L, Mean Corpuscular Volume 79.5 L, Mean Corpuscular Hemoglobin 23.0 L, Mean Corpuscular Hemoglobin Concent 28.9 L, Red Cell Distribution Width 18.5 H, Neutrophils (%) (Auto) 71.0 H, Lymphocytes (%) (Auto ) 16.5 L, Monocytes (%) (Auto) 4.7, Eosinophils (%) (Auto) 5.5 H, Basophils (%) (Auto) 0.8, Neutrophils # (Auto) 5.0, Lymphocytes # (Auto) 1.3 L, Monocytes # ( Auto) 0.3, Eosinophils # (Auto) 0.4, Basophils # (Auto) 0.1, Calcium Level 8.1 L Vital Signs Date Time Temp Pulse Resp B/P (MAP) Pulse Ox O2 Delivery O2 Flow Rate FiO2 03/14/17 14:10 98.2 76 20 140/78 (98) 87 Nasal Cannula 2.0 I&O- Last 24 Hours up to 6 AM 03/14/17 06:00 Intake Total 1560 ml Output Total 1350 ml Balance 210 ml HUMBERTO BARTH MD March 14, 2017 14:53
--- NOTE | 2017-03-14 15:42 | REP ---
Clinical: Hypoxia. Rule out infiltrate. Comparison: 01/15/2017. Findings: New small right pleural effusion and associated right lower lobe atelectasis is appreciated. Mild left lower lobe and lingular atelectasis also identified and similar to prior examination. Underlying chronic age-related interstitial changes are appreciated as well as stable linear scarring in the right lower lobe, extensive calcified mediastinal and hilar lymph nodes consistent with prior granulomas disease, and large hiatal hernia. Atherosclerotic changes to the thoracic aorta and coronary arteries noted. The heart is upper limits of normal. No pericardial effusion is identified. Musculoskeletal structures demonstrate age-related degenerative changes. Impression: 1. New small right pleural effusion and right lower lobe atelectasis as well as mild stable left lower lobe and lingular atelectasis. Diffuse chronic interstitial changes and evidence for prior granulomatous disease. 2. Stable large hiatal hernia. 3. Stable atherosclerotic changes of the aorta and coronary arteries. Signed by Geraldo Wheeler MD 03/14/2017 03:33 P
[2017-03-14] MEDS: predniSONE 10 MG TAB PO SCH (17:20)
[2017-03-14 20:00] VITALS: BP 142/64
[2017-03-14 22:00] VITALS: BP 142/64
[2017-03-15] MEDS: IPRATROPIUM 0.5MG/ALBUTEROL 2.5MG INH SOL UD 3ML (DUONEB)(J7620) NEB SCH ×7 (04:00→23:05)
[2017-03-15 05:54] LABS: BASO % 0.3 % (0.0-1.0); LARGE UNSTAINED CELL # 0.1 K/mm3 (0.0-0.4); LARGE UNSTAINED CELL % 0.9 % (0.0-4.0); LYMPH # 0.9 K/mm3 (1.5-4.5); LYMPH % 12.6 % (24.0-44.0); MEAN CORPUSCULAR HGB CONC 29.9 g/dl (32.0-36.5); MEAN CORPUSCULAR VOLUME 77.1 fl (80.0-96.0); MONO # 0.2 K/mm3 (0.0-0.8); MONO % 3.5 % (0.0-5.0); NEUTROPHILS # 5.3 K/mm3 (1.8-7.7); NEUTROPHILS % 82.7 % (36.0-66.0); PLATELET COUNT, AUTOMATED 458 k/mm3 (150-450); RED CELL DISTRIBUTION WIDTH 18.4 % (11.5-14.5); WHITE BLOOD COUNT 6.4 K/mm3 (4.0-10.0)
[2017-03-15 06:00] VITALS: BP 164/75
[2017-03-15 06:17] LABS: ANION GAP 6 MEQ/L (8-16); BLOOD UREA NITROGEN 13 MG/DL (7-18); CALCIUM LEVEL 8.7 MG/DL (8.8-10.2); CARBON DIOXIDE LEVEL 30 MEQ/L (21-32); CHLORIDE LEVEL 105 MEQ/L (98-107); CREATININE FOR GFR 0.76 MG/DL (0.55-1.02); GLOMERULAR FILTRATION RATE > 60.0 (>32); GLUCOSE, FASTING 134 MG/DL (83-110); POTASSIUM SERUM 3.3 MEQ/L (3.5-5.1); SODIUM LEVEL 141 MEQ/L (136-145)
[2017-03-15 06:20] VITALS: BP 136/62
[2017-03-15] MEDS: ADVAIR DISKUS 250/50 INH PWD INH SCH ×2 (08:09→19:56)
[2017-03-15] MEDS: ENOXAPARIN 30 MG/0.3 ML SYR (J1650) SC SCH (08:19)
[2017-03-15] MEDS: SUCRALFATE 1 GM TAB PO SCH ×4 (08:19→20:17)
[2017-03-15] MEDS: predniSONE 10 MG TAB PO SCH (08:19)
[2017-03-15] MEDS: METOPROLOL TART 25 MG TABLET PO SCH ×2 (08:20→20:18)
[2017-03-15] MEDS: amLODIPine 5 MG TAB PO SCH (08:21)
[2017-03-15] MEDS: ASPIRIN 81 MG ENTERIC TAB PO SCH (08:21)
[2017-03-15] MEDS: ACETAMINOPHEN TAB 650MG DOSE (2X325MG) PO PRN (08:22)
[2017-03-15] MEDS ORDERED: POTASSIUM CHLORIDE 10 MEQ SR TABLET PO ONE (08:45)
[2017-03-15 14:00] VITALS: BP 143/82
--- NOTE | 2017-03-15 14:13 | IPNPDOC ---
Text Note Date of Service The patient was seen on 03/15/17. NOTE Subjective: Denies any complaints. No diarrhea. No N/V/Abd pain. Objective: Vitals: (see below) General: No acute distress, sitting comfortably in chair HEENT: Moist mucous membranes. Neck: No JVD or lymphadenopathy Cardiac: RRR, No murmurs Pulm: Coarse crackles at the bases b/l. No wheezing, rhonchi Abd: NT/ND + BS. Ext: No edema or cyanosis. Labs (see below) Images: CXR 03/14/17 Impression: Chronic changes with suspected superimposed basilar atelectasis. Assessment/Plan 1. Gastroenteritis and Dehydration. Diarrhea resolved. Diet advanced and tolerated. BCx 2 pending. IV Protonix. PO Carafate. Zofran/Morphine PRN. s/p IVF. Just completed course of Cipro outpt. 2. Hypoxia likely 2/2 COPD exacerbation - Started on Nebs. Incentive spirometer. CT chest with atelectasis 3. Lactic acidosis - resolved. 2/2 dehydration. 4. CAD/Stents. Metoprolol/ASA 5. HTN - controlled. Metoprolol. 6. HLD - Diet as outpt. 7. COPD - Advair/Atrovent prn DVT prophylaxis - Lovenox PT consulted. VS,Fishbone, I+O VS, Morganbone, I+O Laboratory Tests 03/15/17 05:17 Red Blood Count 4.26, Mean Corpuscular Volume 77.1 L, Mean Corpuscular Hemoglobin 23.0 L, Mean Corpuscular Hemoglobin Concent 29.9 L, Red Cell Distribution Width 18.4 H, Neutrophils (%) (Auto) 82.7 H, Lymphocytes (%) (Auto ) 12.6 L, Monocytes (%) (Auto) 3.5, Eosinophils (%) (Auto) 0.0, Basophils (%) ( Auto) 0.3, Neutrophils # (Auto) 5.3, Lymphocytes # (Auto) 0.9 L, Monocytes # ( Auto) 0.2, Eosinophils # (Auto) 0.0, Basophils # (Auto) 0.0, Calcium Level 8.7 L Vital Signs Date Time Temp Pulse Resp B/P (MAP) Pulse Ox O2 Delivery O2 Flow Rate FiO2 03/15/17 12:00 89 Room Air 03/15/17 08:20 88 136/80 03/15/17 06:00 97.5 20 03/14/17 20:00 1.0 I&O- Last 24 Hours up to 6 AM 03/15/17 06:00 Intake Total 1260 ml Output Total 3975 ml Balance -2715 ml HUMBERTO BARTH MD March 15, 2017 14:13
[2017-03-15] MEDS: PANTOPRAZOLE 40MG INJ (PROTONIX) (C9113) IV SCH (14:17)
[2017-03-15 22:00] VITALS: BP 120/55
[2017-03-16] MEDS: ACETAMINOPHEN TAB 650MG DOSE (2X325MG) PO PRN (02:20)
[2017-03-16] MEDS: IPRATROPIUM 0.5MG/ALBUTEROL 2.5MG INH SOL UD 3ML (DUONEB)(J7620) NEB SCH ×2 (03:34→08:00)
[2017-03-16 05:34] LABS: BASO % 0.5 % (0.0-1.0); EOS % 0.6 % (0.0-3.0); LARGE UNSTAINED CELL # 0.2 K/mm3 (0.0-0.4); LARGE UNSTAINED CELL % 2.2 % (0.0-4.0); LYMPH # 1.5 K/mm3 (1.5-4.5); LYMPH % 19.3 % (24.0-44.0); MEAN CORPUSCULAR HEMOGLOBIN 23.2 pg (27.0-33.0); MEAN CORPUSCULAR HGB CONC 29.5 g/dl (32.0-36.5); MEAN CORPUSCULAR VOLUME 78.7 fl (80.0-96.0); MONO # 0.5 K/mm3 (0.0-0.8); MONO % 5.9 % (0.0-5.0); NEUTROPHILS # 5.6 K/mm3 (1.8-7.7); NEUTROPHILS % 71.5 % (36.0-66.0); PLATELET COUNT, AUTOMATED 484 k/mm3 (150-450); RED CELL DISTRIBUTION WIDTH 18.1 % (11.5-14.5); WHITE BLOOD COUNT 7.9 K/mm3 (4.0-10.0)
[2017-03-16 05:49] LABS: ANION GAP 5 MEQ/L (8-16); BLOOD UREA NITROGEN 19 MG/DL (7-18); CALCIUM LEVEL 8.5 MG/DL (8.8-10.2); CARBON DIOXIDE LEVEL 30 MEQ/L (21-32); CHLORIDE LEVEL 107 MEQ/L (98-107); GLOMERULAR FILTRATION RATE > 60.0 (>32); GLUCOSE, FASTING 93 MG/DL (83-110); POTASSIUM SERUM 3.6 MEQ/L (3.5-5.1); SODIUM LEVEL 142 MEQ/L (136-145)
[2017-03-16 06:00] VITALS: BP 120/71
[2017-03-16] MEDS: ADVAIR DISKUS 250/50 INH PWD INH SCH (08:12)
[2017-03-16] MEDS ORDERED: DOXYCYCLINE HYCLATE 100 MG TAB PO SCH (09:00)
[2017-03-16] MEDS: predniSONE 10 MG TAB PO SCH (09:40)
[2017-03-16] MEDS: ENOXAPARIN 30 MG/0.3 ML SYR (J1650) SC SCH (09:41)
[2017-03-16] MEDS: ASPIRIN 81 MG ENTERIC TAB PO SCH (09:41)
[2017-03-16] MEDS: SUCRALFATE 1 GM TAB PO SCH ×2 (09:41→12:00)
[2017-03-16 09:42] VITALS: BP 120/71
[2017-03-16] MEDS: METOPROLOL TART 25 MG TABLET PO SCH (09:42)
[2017-03-16] MEDS: amLODIPine 5 MG TAB PO SCH (09:42)
[2017-03-16] MEDS ORDERED: PROT1TAB2 PO (11:43)
[2017-03-16] MEDS ORDERED: IPRATROPIUM 0.02% SOLN 0.5MG/2.5 ML NEB INH SCH (12:00)
--- NOTE | 2017-03-16 16:26 | DS.PDOC ---
Discharge Summary General Date of Admission March 12, 2017 at 12:38 Date of Discharge 03/16/17 Attending Physician: HUMBERTO BARTH MD Discharge Summary PROCEDURES PERFORMED DURING STAY: None. ADMITTING/DISCHARGE DIAGNOSES: 1. Gastroenteritis and Dehydration. 2. Hypoxia 2/2 COPD exacerbation and atelectasis 3. H/o CAD s/p PCI 4. HTN 5. HLD 6. Hypokalemia COMPLICATIONS/CHIEF COMPLAINT: Dehydration Gastroenteritis. HISTORY OF PRESENT ILLNESS/HOSPITAL COURSE: This 89-year-old female past medical history of hypercoagulable CAD, GERD, COPD comes in complaining of abdominal pain, nausea, and decreased appetite along with diarrhea. Upon presentation to the ED, the patient was noted to have gastroenteritis likely viral. Patient's GI panel was negative. Patient was hydrated and tolerated therapy well. During the course of hospitalization patient was also hypoxic secondary to atelectasis and COPD exacerbation for which incentive spirometer, nebulizers and steroids were used. Patient tolerated therapy well. Patient had A pulse ox was 91% on room air. Patient also did well with physical therapy and is ready to be discharged home. DISCHARGE MEDICATIONS: Please see below. ALLERGIES: Please see below. PHYSICAL EXAMINATION ON DISCHARGE: Vitals: (see below) General: No acute distress, sitting comfortably in chair HEENT: Moist mucous membranes. Neck: No JVD or lymphadenopathy Cardiac: RRR, No murmurs Pulm: Coarse crackles at the bases b/l. No wheezing, rhonchi Abd: NT/ND + BS. Ext: No edema or cyanosis. LABORATORY DATA: Please see below. IMAGING: PROGNOSIS: Fair ACTIVITY: As tolerated. DIET: As tolerated DISCHARGE PLAN/DISPOSITION: Home, Self-Care. DISCHARGE INSTRUCTIONS: 1. F/u with PCP in 1-2 weeks. DISCHARGE CONDITION: Stable. TIME SPENT ON DISCHARGE: Greater than 30 minutes. Vital Signs/I&Os Vital Signs Date Time Temp Pulse Resp B/P (MAP) Pulse Ox O2 Delivery O2 Flow Rate FiO2 03/16/17 10:18 91 Room Air 03/16/17 09:42 91 120/71 03/16/17 06:00 98.7 20 03/14/17 20:00 1.0 I&O- Last 24 Hours up to 6 AM 03/16/17 06:00 Intake Total 1140 ml Output Total 1400 ml Balance -260 ml Laboratory Data Labs 24H Laboratory Tests 2 03/16/17 05:09: White Blood Count 7.9, Red Blood Count 4.29, Hemoglobin 10.0L, Hematocrit 33.8L , Mean Corpuscular Volume 78.7L, Mean Corpuscular Hemoglobin 23.2L, Mean Corpuscular Hemoglobin Concent 29.5L, Red Cell Distribution Width 18.1H, Platelet Count 484H, Neutrophils (%) (Auto) 71.5H, Lymphocytes (%) (Auto) 19.3L , Monocytes (%) (Auto) 5.9H, Eosinophils (%) (Auto) 0.6, Basophils (%) (Auto) 0.5, Neutrophils # (Auto) 5.6, Lymphocytes # (Auto) 1.5, Monocytes # (Auto) 0.5 , Eosinophils # (Auto) 0.0, Basophils # (Auto) 0.0, Large Unclassified Cells % 2.2, Large Unclassified Cells # 0.2, Anion Gap 5L, Glomerular Filtration Rate > 60.0, Blood Urea Nitrogen 19H, Creatinine 0.90, Sodium Level 142, Potassium Level 3.6, Chloride Level 107, Carbon Dioxide Level 30, Calcium Level 8.5L CBC/BMP Laboratory Tests 03/16/17 05:09 Red Blood Count 4.29, Mean Corpuscular Volume 78.7 L, Mean Corpuscular Hemoglobin 23.2 L, Mean Corpuscular Hemoglobin Concent 29.5 L, Red Cell Distribution Width 18.1 H, Neutrophils (%) (Auto) 71.5 H, Lymphocytes (%) (Auto ) 19.3 L, Monocytes (%) (Auto) 5.9 H, Eosinophils (%) (Auto) 0.6, Basophils (%) (Auto) 0.5, Neutrophils # (Auto) 5.6, Lymphocytes # (Auto) 1.5, Monocytes # ( Auto) 0.5, Eosinophils # (Auto) 0.0, Basophils # (Auto) 0.0, Calcium Level 8.5 L Microbiology Microbiology 03/12/17 Blood Culture - Preliminary, Resulted No Growth after 72 hours. All specime... 03/12/17 Blood Culture - Preliminary, Resulted No Growth after 72 hours. All specime... 03/14/17 Gastrointestinal Tract Panel (PCR) - Final, Complete 03/13/17 Urine Culture - Final, Complete Staphylococcus Warneri Discharge Medications Scheduled (Preservision Areds 2) 1 Cap Cap, 2 CAP PO BID, (Reported) Aspirin (Aspir-81) 81 Mg Tab, 81 MG PO DAILY, (Reported) Cholecalciferol (Vitamin D3) 1,000 Unit Tab, 1,000 UNIT PO DAILY, (Reported) Furosemide (Furosemide) 20 Mg Tab, 20 MG PO DAILY, (Reported) Gabapentin (Gabapentin) 300 Mg Cap, 300 MG PO QHS, (Reported) Metoprolol Tartrate (Metoprolol Tartrate) 25 Mg Tab, 25 MG PO BID, (Reported) Pantoprazole Sodium Sesquihydr (Protonix) 40 Mg Tab, 40 MG PO DAILY Salmeterol/Fluticasone (Advair Diskus 250-50 Mcg/Dose) 14 Puff/Inhaler Aerp, 1 PUFF INH BID, (Reported) Scheduled PRN Acetaminophen/Hydrocodone (Hydrocodone/Acetaminophen 5-325 mg) 1 Tab Tab, 1 TAB PO Q4H PRN for PAIN, (Reported) Carboxymethylcellulose Sodium (Refresh Tears) 0.5 % Rod, 1 DROP OU PRN PRN for DRY EYES, (Reported) Ipratropium [place] (Atrovent Hfa) 200 Puff/12.9 Gm Aers, 2 PUFF INH Q4H PRN for SHORTNESS OF BREATH, (Reported) Polyethylene Glycol (Miralax) 1 Pow Pow, 17 GM PO DAILY PRN for CONSTIPATION, ( Reported) Allergies Coded Allergies: Erythromycin (Verified Allergy, Intermediate, RASH AND ACHEY, 01/31/13) Penicillins (Verified Allergy, Intermediate, RASH AND HIVES, 01/31/13) Pneumococcal Vaccine (Verified Adverse Reaction, Intermediate, SLIGHT SKIN IRRITATION, 01/31/13) Sulfa Drugs (Verified Adverse Reaction, Intermediate, CONFUSION, 01/31/13) HUMBERTO BARTH MD March 16, 2017 16:26
== END 2017-03-16 12:42 | disposition home or self-care (01) ==
LOC: M ED 08:24 → M ED INP 12:38 → M MSPAV 15:18
PROVIDERS: ADMIT Internal Medicine Nephrology; ATTEND Internal Medicine
DX: K52.89 Other specified noninfective gastroenteritis and colitis (principal); E86.0 Dehydration; I25.10 Atherosclerotic heart disease of native coronary artery without angina pectoris; J44.1 Chronic obstructive pulmonary disease with (acute) exacerbation; Z98.61 Coronary angioplasty status; I10 Essential (primary) hypertension; E78.4 Other hyperlipidemia; E87.6 Hypokalemia; K21.9 Gastro-esophageal reflux disease without esophagitis; D64.9 Anemia, unspecified; M54.5 Low back pain; Z87.891 Personal history of nicotine dependence; Z79.82 Long term (current) use of aspirin; Z79.899 Other long term (current) drug therapy; Z88.0 Allergy status to penicillin; Z88.7 Allergy status to serum and vaccine; Z88.2 Allergy status to sulfonamides
CPT/HCPCS: 36415; 71010; 71250; 74177; 80048; 80076; 81001; 82550; 82553; 83605; 83690; 84484; 85025; 87040; 87088; 87186; 87507; 93005; 93041; 94640; 94664; 96361; 96372; 96374; 96375; 97161; 97530; 99285; C9113; G0378; J1650; J1940; J2405; Q9967

== ENCOUNTER 2017-03-25 07:18 | Emergency (ER) | payer MEDICARE ==
[~2017-03-25 07:18] MED LIST changes: +ATRO0.063; +PRESCAP6 PO; +PROT1TAB2 PO; +REFR0.5D8 OU; +VITA-122 PO
[2017-03-25 08:38] LABS: BASO # 0.1 K/mm3 (0.0-0.2); EOS # 0.2 K/mm3 (0.0-0.50); EOS % 2.9 % (0.0-3.0); LARGE UNSTAINED CELL # 0.1 K/mm3 (0.0-0.4); LARGE UNSTAINED CELL % 1.6 % (0.0-4.0); LYMPH % 14.1 % (24.0-44.0); MEAN CORPUSCULAR HEMOGLOBIN 22.3 pg (27.0-33.0); MEAN CORPUSCULAR VOLUME 76.9 fl (80.0-96.0); MONO # 0.4 K/mm3 (0.0-0.8); MONO % 5.6 % (0.0-5.0); NEUTROPHILS % 74.9 % (36.0-66.0); PLATELET COUNT, AUTOMATED 474 k/mm3 (150-450); RED CELL DISTRIBUTION WIDTH 17.8 % (11.5-14.5); WHITE BLOOD COUNT 6.6 K/mm3 (4.0-10.0)
[2017-03-25 09:10] LABS: ANION GAP 4 MEQ/L (8-16); BLOOD UREA NITROGEN 16 MG/DL (7-18); CALCIUM LEVEL 8.5 MG/DL (8.8-10.2); CARBON DIOXIDE LEVEL 30 MEQ/L (21-32); CHLORIDE LEVEL 107 MEQ/L (98-107); CREATININE FOR GFR 1.04 MG/DL (0.55-1.02); GLOMERULAR FILTRATION RATE 53.1 (>32); GLUCOSE, FASTING 118 MG/DL (83-110); POTASSIUM SERUM 4.5 MEQ/L (3.5-5.1); SODIUM LEVEL 141 MEQ/L (136-145)
--- NOTE | 2017-03-25 09:25 | REP ---
PORTABLE CHEST: AP portable view of the chest is performed and compared to a prior study of 01/15/2017. There is interstitial fibrotic change which is stable. There is no new infiltrate. Cardiomediastinal silhouette is unchanged with calcification and tortuosity of the thoracic aorta. There is a large hiatal hernia. IMPRESSION: Stable chronic changes without evidence of acute infiltrate. Signed by Samuel Medellin MD 03/26/2017 07:02 P
[2017-03-25 12:01] VITALS: BP 124/76
--- NOTE | 2017-03-26 08:40 | ECGEPIP ---
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
[2017-04-09] MEDS ORDERED: MIRA33504 PO (11:25)
[2017-04-09] MEDS ORDERED: BENA25CA4 PO (11:25)
== END 2017-03-25 12:06 | disposition home or self-care (01) ==
LOC: EDBD 07:18 → M ED 07:44
DX: F43.20 Adjustment disorder, unspecified (principal); I25.10 Atherosclerotic heart disease of native coronary artery without angina pectoris; J44.9 Chronic obstructive pulmonary disease, unspecified; Z95.5 Presence of coronary angioplasty implant and graft; I10 Essential (primary) hypertension; K21.9 Gastro-esophageal reflux disease without esophagitis; Z87.891 Personal history of nicotine dependence; Z79.82 Long term (current) use of aspirin; Z79.899 Other long term (current) drug therapy; Z88.0 Allergy status to penicillin; Z88.2 Allergy status to sulfonamides; Z88.7 Allergy status to serum and vaccine; Z88.1 Allergy status to other antibiotic agents

== ENCOUNTER → 2017-04-16 | Outpatient (CLI) | payer MEDICARE ==
[~2017-04-16] VITALS: Ht 147.3 cm; Wt 59.0 kg
[~2017-04-16] MED LIST changes: +BENA25CA4 PO; +LEVALBUTEROL 1.25 MG/0.5 ML CONCENTRATE NEB As Ordered ONE; +LIDOCAINE 2% INJ 100 MG/5 ML SDV (FOR ANES.) As Ordered ONE; +NS 1,000 ML IV SCH; +PROPOFOL 200 MG/20 ML VIAL As Ordered ONE
--- NOTE | 2017-04-16 08:51 | ROOR ---
Patient Name: Liliana Morales Procedure Date: 04/16/2017 8:31 AM Date of : 1925 Age: 89 Room: [facility] Gender: Female Note Status: Finalized Procedure: Upper GI endoscopy Indications: Iron deficiency anemia Providers: Gómez Mora Jr, MD Referring MD: Kayleen Holman DO Requesting Provider: Medicines: Propofol per Anesthesia Complications: No immediate complications. Procedure: Pre-Anesthesia Assessment: - Prior to the procedure, a History and Physical was performed, and patient medications and allergies were reviewed. The patient is competent. The risks and benefits of the procedure and the sedation options and risks were discussed with the patient. All questions were answered and informed consent was obtained. Patient identification and proposed procedure were verified by the physician and the nurse in the pre-procedure area and in the procedure room. Mental Status Examination: alert and oriented. Airway Examination: normal oropharyngeal airway and neck mobility. Respiratory Examination: clear to auscultation. CV Examination: normal. ASA Grade Assessment: II - A patient with mild systemic disease. After reviewing the risks and benefits, the patient was deemed in satisfactory condition to undergo the procedure. The anesthesia plan was to use moderate sedation / analgesia (conscious sedation). Immediately prior to administration of medications, the patient was re-assessed for adequacy to receive sedatives. The heart rate, respiratory rate, oxygen saturations, blood pressure, adequacy of pulmonary ventilation, and response to care were monitored throughout the procedure. The physical status of the patient was re-assessed after the procedure. The Endoscope was introduced through the mouth, and advanced to the second part of duodenum. The patient tolerated the procedure well. The upper GI endoscopy was accomplished without difficulty. Findings: The upper third of the esophagus, middle third of the esophagus and lower third of the esophagus were normal. A medium-sized hiatal hernia was present. Localized moderate inflammation characterized by congestion (edema), erythema, friability and granularity was found on the greater curvature of the stomach. The cardia, gastric fundus, gastric antrum, prepyloric region of the stomach and pylorus were normal. The duodenal bulb, first portion of the duodenum and third portion of the duodenum were normal. Two diminutive angioectasias with bleeding were found in the first portion of the duodenum. To stop active bleeding, two hemostatic clips were successfully placed. There was no bleeding at the end of the procedure. Impression: - Normal upper third of esophagus, middle third of esophagus and lower third of esophagus. - Medium-sized hiatal hernia. - Gastritis. - Normal cardia, gastric fundus, antrum, prepyloric region of the stomach and pylorus. - Normal duodenal bulb, first portion of the duodenum and third portion of the duodenum. - Two bleeding angioectasias in the duodenum. Clips were placed. - No specimens collected. Recommendation: - Discharge patient to home (ambulatory). - Return to my office in 2 weeks. Gómez Mora MD Gómez Mora Jr, MD 04/16/2017 8:50:59 AM This report has been signed electronically. Number of Addenda: 0 Note Initiated On: 04/16/2017 8:31 AM Estimated Blood Loss: Estimated blood loss: none.
--- NOTE | 2017-04-16 09:05 | ROOR ---
Patient Name: Liliana Morlaes Procedure Date: 04/16/2017 8:32 AM Date of : 1925 Age: 89 Room: [facility] Gender: Female Note Status: Finalized Procedure: Colonoscopy Indications: Iron deficiency anemia Providers: Gómez Mora Jr, MD Referring MD: Kayleen Holman DO Requesting Provider: Medicines: Propofol per Anesthesia Complications: No immediate complications. Procedure: Pre-Anesthesia Assessment: - Prior to the procedure, a History and Physical was performed, and patient medications and allergies were reviewed. The patient is competent. The risks and benefits of the procedure and the sedation options and risks were discussed with the patient. All questions were answered and informed consent was obtained. Patient identification and proposed procedure were verified by the physician and the nurse in the pre-procedure area and in the procedure room. Mental Status Examination: alert and oriented. Airway Examination: normal oropharyngeal airway and neck mobility. Respiratory Examination: clear to auscultation. CV Examination: normal. ASA Grade Assessment: II - A patient with mild systemic disease. After reviewing the risks and benefits, the patient was deemed in satisfactory condition to undergo the procedure. The anesthesia plan was to use moderate sedation / analgesia (conscious sedation). Immediately prior to administration of medications, the patient was re-assessed for adequacy to receive sedatives. The heart rate, respiratory rate, oxygen saturations, blood pressure, adequacy of pulmonary ventilation, and response to care were monitored throughout the procedure. The physical status of the patient was re-assessed after the procedure. The Colonoscope was introduced through the anus and advanced to the cecum, identified by appendiceal orifice and ileocecal valve. The colonoscopy was performed without difficulty. The patient tolerated the procedure well. The quality of the bowel preparation was adequate and good. Findings: The perianal exam findings include non-thrombosed external hemorrhoids, non-thrombosed internal hemorrhoids and internal hemorrhoids that prolapse with straining, but require manual replacement into the anal canal (Grade III). The rectum, descending colon, transverse colon, hepatic flexure, ascending colon, cecum, appendiceal orifice and ileocecal valve appeared normal. Many small and large-mouthed diverticula were found in the sigmoid colon. Impression: - Non-thrombosed external hemorrhoids, non-thrombosed internal hemorrhoids and internal hemorrhoids that prolapse with straining, but require manual replacement into the anal canal (Grade III) found on perianal exam. - The rectum, descending colon, transverse colon, hepatic flexure, ascending colon, cecum, appendiceal orifice and ileocecal valve are normal. - Diverticulosis in the sigmoid colon. - No specimens collected. Recommendation: - Discharge patient to home (ambulatory). - Repeat colonoscopy in 10 years for screening purposes. Gómez Mora MD Gómez Mora Jr, MD 04/16/2017 9:04:53 AM This report has been signed electronically. Number of Addenda: 0 Note Initiated On: 04/16/2017 8:32 AM Estimated Blood Loss: Estimated blood loss: none.
[2017-04-16 10:50] VITALS: BP 182/81
== END | disposition home or self-care (01) ==
LOC: M OPP 07:47
PROVIDERS: ATTEND Surgery
DX: D50.9 Iron deficiency anemia, unspecified (principal); K64.2 Third degree hemorrhoids; K64.4 Residual hemorrhoidal skin tags; K57.30 Diverticulosis of large intestine without perforation or abscess without bleeding; K29.70 Gastritis, unspecified, without bleeding; K31.811 Angiodysplasia of stomach and duodenum with bleeding; K44.9 Diaphragmatic hernia without obstruction or gangrene; I25.10 Atherosclerotic heart disease of native coronary artery without angina pectoris; I25.6 Silent myocardial ischemia; I10 Essential (primary) hypertension; Z95.5 Presence of coronary angioplasty implant and graft; M19.90 Unspecified osteoarthritis, unspecified site; M54.9 Dorsalgia, unspecified; J44.9 Chronic obstructive pulmonary disease, unspecified; G47.8 Other sleep disorders; Z78.0 Asymptomatic menopausal state; L85.3 Xerosis cutis; Z87.891 Personal history of nicotine dependence; Z88.0 Allergy status to penicillin; Z88.2 Allergy status to sulfonamides; Z88.1 Allergy status to other antibiotic agents; Z88.7 Allergy status to serum and vaccine; Z91.048 Other nonmedicinal substance allergy status; Z79.899 Other long term (current) drug therapy

== ENCOUNTER 2017-05-05 09:57 | Inpatient (IN) | payer MEDICARE, MEDICAID ==
[~2017-05-05 09:57] MED LIST changes: +CIPR-249 PO; -CIPR500T89 PO; +ENOXAPARIN 40 MG/0.4 ML SYRINGE (J1650) SC SCH; -LEVALBUTEROL 1.25 MG/0.5 ML CONCENTRATE NEB As Ordered ONE; -LIDOCAINE 2% INJ 100 MG/5 ML SDV (FOR ANES.) As Ordered ONE; -METO12TA PO; +METO1TAB87 PO; -NS 1,000 ML IV SCH; +PLAV1TAB2 PO; -PLAV75TA38 PO; -PROPOFOL 200 MG/20 ML VIAL As Ordered ONE; -VITA100037 PO; +VITA100067 PO; +VOLT1GEL15 TD; -VOLT1GEL24 TD
[2017-05-05] MEDS ORDERED: IPRATROPIUM 0.5MG/ALBUTEROL 2.5MG INH SOL UD 3ML (DUONEB)(J7620) NEB ONE (10:15)
[2017-05-05] MEDS ORDERED: MORPHINE 2 MG/ML 1ML SYRINGE IV ONE (10:15)
[2017-05-05] MEDS ORDERED: ONDANSETRON 4MG/2ML VIAL (J2405) IV ONE (10:15)
[2017-05-05] MEDS ORDERED: FLUT1SPR2 (10:16)
[2017-05-05] MEDS ORDERED: ATOR1TAB21 PO (10:16)
[2017-05-05 11:22] LABS: ALBUMIN 3.7 GM/DL (3.2-5.2); ALBUMIN/GLOBULIN RATIO 0.97 (1.00-1.93); ALKALINE PHOSPHATASE 69 U/L (45-117); ALT/SGPT 16 U/L (12-78); ANION GAP 5 MEQ/L (8-16); AST/SGOT 14 U/L (15-37); BILIRUBIN,DIRECT 0.1 MG/DL (0.0-0.2); BILIRUBIN,TOTAL 0.4 MG/DL (0.2-1.0); BLOOD UREA NITROGEN 17 MG/DL (7-18); CALCIUM LEVEL 9.8 MG/DL (8.8-10.2); CARBON DIOXIDE LEVEL 30 MEQ/L (21-32); CHLORIDE LEVEL 108 MEQ/L (98-107); CREATININE FOR GFR 0.84 MG/DL (0.55-1.02); GLOMERULAR FILTRATION RATE > 60.0 (>32); GLUCOSE, FASTING 106 MG/DL (83-110); POTASSIUM SERUM 4.2 MEQ/L (3.5-5.1); SODIUM LEVEL 143 MEQ/L (136-145); TOTAL PROTEIN 7.5 GM/DL (6.4-8.2)
[2017-05-05 11:23] LABS: BASO # 0.1 K/mm3 (0.0-0.2); BASO % 0.7 % (0.0-1.0); EOS % 0.6 % (0.0-3.0); LARGE UNSTAINED CELL # 0.1 K/mm3 (0.0-0.4); LARGE UNSTAINED CELL % 0.8 % (0.0-4.0); LYMPH # 1.1 K/mm3 (1.5-4.5); LYMPH % 11.7 % (24.0-44.0); MEAN CORPUSCULAR HEMOGLOBIN 21.6 pg (27.0-33.0); MEAN CORPUSCULAR HGB CONC 28.4 g/dl (32.0-36.5); MEAN CORPUSCULAR VOLUME 75.9 fl (80.0-96.0); MONO # 0.3 K/mm3 (0.0-0.8); MONO % 2.9 % (0.0-5.0); NEUTROPHILS # 7.4 K/mm3 (1.8-7.7); NEUTROPHILS % 83.3 % (36.0-66.0); PLATELET COUNT, AUTOMATED 508 k/mm3 (150-450); RED CELL DISTRIBUTION WIDTH 17.7 % (11.5-14.5); WHITE BLOOD COUNT 8.9 K/mm3 (4.0-10.0)
[2017-05-05 11:26] LABS: ADD MORPHOLOGY? YES
[2017-05-05 11:42] LABS: ANISOCYTOSIS 1+; HYPOCHROMASIA 2+
--- NOTE | 2017-05-05 12:05 | REP ---
CHEST, TWO VIEWS: HISTORY: Shortness of breath. COMPARISON: 03/25/2017. An increase in interstitial markings is present in the lungs consistent with chronic interstitial fibrosis. Linear density is present in the left lower lobe consistent with atelectasis. The heart is upper limit of normal in size. The pulmonary vasculature is normal in appearance. Calcified lymph nodes are present in the mediastinum. A hiatal hernia is present. Degenerative change is present in the thoracic spine. IMPRESSION: 1. Chronic interstitial fibrosis. 2. Left lower lobe atelectasis. Signed by Oneil Diaz MD 05/05/2017 12:10 P
[2017-05-05] MEDS ORDERED: GASTROGRAFIN SOLUTION 30ML PO ONE (12:20)
[2017-05-05] MEDS ORDERED: GASTROGRAFIN SOLUTION 30ML (Q9963) PO ONE (12:50)
[2017-05-05] MEDS ORDERED: ISOVUE-370 76% 100ML VIAL (Q9967) As Ordered ONE (13:45)
[2017-05-05] MEDS ORDERED: OMEP40CA2 PO (15:29)
--- NOTE | 2017-05-05 15:47 | REP ---
HISTORY: Diffuse abdominal pain with vomiting. COMPARISON: 03/12/2017, which showed no evidence of acute disease. Chronic changes were seen with hiatal hernia, basilar atelectasis, renal cyst, diverticulosis and atherosclerotic changes. CONTRAST: 100 mL [id number] The lung bases are unchanged. There are no pleural or pericardial effusions. The liver, gallbladder, spleen, adrenal glands and kidneys are unchanged. There is mild intrapancreatic ductal dilatation, status quo. The pancreatic duct measured between 5 and 6 mm. When compared to an older examination of 09/28/2009, there does not appear to be a significant change in the degree of intrapancreatic ductal dilatation. The abdominal aorta and paraaortic regions are unchanged. There is no free fluid or free air. There is a large hiatal hernia, status quo. Bowel loops and their mesenteries are unchanged. There is diverticulosis involving the descending colon. CT PELVIS: There is no intrapelvic mass or adenopathy. There is no free fluid or free air. There is sigmoid colon diverticulosis. Bone window technique throughout the examination shows chronic osseous changes, status quo. IMPRESSION: Stable chronic changes as described above showing no evidence of acute intraabdominal or intrapelvic disease. Signed by Julio C Rodriguez DO 05/05/2017 04:37 P
[2017-05-05] MEDS ORDERED: IPRATROPIUM 0.5MG/ALBUTEROL 2.5MG INH SOL UD 3ML (DUONEB)(J7620) NEB PRN (16:15)
[2017-05-05] MEDS ORDERED: ONDANSETRON 4MG/2ML VIAL (J2405) IV PRN (16:15)
[2017-05-05 16:36] VITALS: O2SAT 83
--- NOTE | 2017-05-05 17:28 | HPE ---
DATE OF ADMISSION: 05/05/2017 PRIMARY CARE PROVIDER: Kayleen Holman RADIOLOGY SPECIAL PROCEDURE TECH: Dr. Blake CHIEF COMPLAINT: Nausea, vomiting, diarrhea. HISTORY OF THE PRESENT ILLNESS: The patient is an 89-year-old female who was recently admitted 03/12/2017 through 03/16/2017 for gastroenteritis and chronic obstructive pulmonary disease (COPD). At this time, the patient presents to the hospital with similar complaints. She awoke this morning at 3:00 a.m. with acute episode of diarrhea, did not resolve, she was sitting on the toilet and could not leave the toilet without having recurrent persistent bouts. She also had associated vomiting. Around 5:30 this morning, she called an ambulance. At the present time, in the emergency room, she tells me that she is feeling better, hungry and wishes to eat. She has not had any further episodes. The patient states this is similar to her episode that she had in February where she had gastroenteritis. At the time, she was admitted, her GI PCR panel was negative. At the present time, she denies any changes in her diet or changes in her normal eating behavior. In recent days, she denies any sick contacts. She tells me that she lives at a [facility] and that she is sometimes occasionally around sick people there. The patient tells me that she does not feel short of breath. She does not have any worsening cough or shortness of breath from her usual. She tells me that when she was last in the hospital, she was told on several occasions that she would need oxygen. However, when it came time for discharge, she did not need it. She denies chest pain, fevers, lightheadedness, dizziness. PAST MEDICAL HISTORY: COPD. Iron deficiency anemia. Gastric angiectasia. Gastroesophageal reflux disease. Coronary artery disease. Hypertension. Dyslipidemia. Osteoarthritis. ALLERGIES: ERYTHROMYCIN, PERFUMES, PENICILLIN, PNEUMOCOCCAL VACCINE, SULFA DRUGS. SURGICAL HISTORY: She had a colonoscopy last month, which revealed internal hemorrhoids, external hemorrhoids, grade III, and diverticulosis. She also had an endoscopy which revealed gastritis and angioectasias in the duodenum. She also had a hysterectomy, coronary stents, carpal tunnel repair, appendectomy, bilateral cataract surgery. 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 She lives in a senior facility. She is . She denies alcohol, illicit drug use or tobacco use. HOME MEDICATIONS: - Atrovent 200, two puffs inhaled four times a day - Refresh Tears one drop both eyes (OU) as needed for dry eyes - Preservision Areds two capsules twice a day - [place] 5-325 one tablet every 4 hours as needed for pain - aspirin 81 mg daily - Lipitor 20 mg nightly - vitamin D3 1000 units daily - fluticasone to nares twice a day - gabapentin 300 mg nightly - metoprolol tartrate 25 mg by mouth twice a day - omeprazole 40 mg daily - MiraLAX powder 17 grams once daily - Advair Diskus 250-50 twice a day FAMILY HISTORY: Noncontributory. REVIEW OF SYSTEMS: Negative other than in the history of the present illness. PHYSICAL EXAMINATION: Temperature afebrile. Pulse 90, respiratory rate 25, blood pressure 146/65, oxygen saturation 97% on 2 liters nasal cannula. She desaturates to 88% when placed on room air. General: She is a frail, obese, female, resting comfortably in bed. At this time, she does not appear to be in any acute distress. HEENT: Cranial nerves II-XII are grossly intact. She has moist mucous membranes. No elevation of jugular venous pressure (JVP). Cardiovascular Exam: S1, S2, appears regular. Respiratory Exam: Clear with some end-expiratory wheeze, prolonged expiratory phase. Abdominal Exam: Bowel sounds present. The abdomen is soft. There is no tenderness. Extremities: No clubbing, cyanosis or edema. LABORATORY STUDIES: WBC 8.9, hemoglobin 8.9, stable, hematocrit 31.2, platelet count 508. Chemistry panel: Sodium 143, potassium 4.2, chloride 108, bicarbonate 30, BUN 17, creatinine 0.8, lactic acid 2.1. Liver function tests are essentially unremarkable, negative initial set of cardiac enzymes, the lipase was 180, within normal limits. IMAGING: She did have a CT scan of the abdomen and pelvis, which revealed stable chronic changes. No evidence of acute intraabdominal or intrapelvic disease. She did have a chest x-ray that revealed chronic interstitial fibrosis, left lower lobe atelectasis. ASSESSMENT AND PLAN: This is an 89-year-old female with possible gastroenteritis with some progressing baseline chronic obstructive pulmonary disease (COPD). Problems: 1. Gastroenteritis, likely similar to her previous episodes. Will send a GI PCR panel and provide her with Zofran. She does want to eat, so I will provide her with a diet. She will continue on her home pain medication, gabapentin, [place]. She does not appear to be uncomfortable or requiring any further at this time. She will continue with her proton pump inhibitor (PPI). I will also add Carafate. She has had a history of gastritis. Will monitor for any recurrence in her symptoms, although I think are likely self-limited and resolving. 2. Hypoxia. The patient has a history of chronic obstructive pulmonary disease (COPD). She does not appear to be worse from her baseline, at least subjectively. I suspect that this is not far from where she lives and that she does likely require some home oxygen related to her chronic lung disease. Tomorrow morning, she should have an ambulating oxygen saturation and see if she qualifies for oxygen, likely be discharged with no home oxygen as early as tomorrow. Also placed a physical therapy (PT) evaluation for home safety, but she does not appear to be in decompensated COPD. I will provide her with nebulizer treatments while in the hospital. She does not have increased cough, increased shortness of breath or increased sputum; however, she was found to be hypoxic in the emergency room. 3. Hypertension. Continue with metoprolol. 4. Coronary disease. Continue with aspirin, statin and beta jimenez. 5. Dyslipidemia. Continue with statin. 6. Gastritis and gastric ectasia. Continue with proton pump inhibitor (PPI), but as mentioned above, will add Carafate. 7. Iron deficiency anemia. The patient did have recent endoscopy with the likely source of bleeding found. I am not sure why she is not on iron supplementation. I will start her on this at this time. 8. Vitamin D deficiency. Continue with supplementation. 9. Chronic constipation. Continue with her home bowel regimen. 10. Deep vein thrombosis (DVT) prophylaxis. No evidence of active bleeding. Will place her on Lovenox DISPOSITION: The patient will be admitted to observation status to Dr. Tipton' s service who will continue following the patient. The patient may be able to be discharged within 24-48 hours. [facility]
[2017-05-05 17:40] VITALS: BP 147/70
--- NOTE | 2017-05-05 18:27 | ECGEPIP ---
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
[2017-05-05] MEDS: MIRALAX *UNIT DOSE* 17GM PACKET PO SCH (18:39)
[2017-05-05] MEDS: OMEPRAZOLE 20 MG CAP PO SCH (18:48)
[2017-05-05] MEDS: SUCRALFATE 1 GM TAB PO SCH ×2 (18:48→21:34)
[2017-05-05] MEDS: VITAMIN D 1,000 INTERNATIONAL UNITS TABLET PO SCH (18:48)
[2017-05-05] MEDS: ASPIRIN 81 MG ENTERIC TAB PO SCH (18:49)
[2017-05-05] MEDS: ENOXAPARIN 40 MG/0.4 ML SYRINGE (J1650) SC SCH (18:49)
[2017-05-05] MEDS: ADVAIR DISKUS 250/50 INH PWD INH SCH (19:49)
[2017-05-05] MEDS: IPRATROPIUM 0.5MG/ALBUTEROL 2.5MG INH SOL UD 3ML (DUONEB)(J7620) NEB SCH ×2 (20:00→23:45)
[2017-05-05] MEDS: GABAPENTIN 300 MG CAP PO SCH (21:34)
[2017-05-05] MEDS: FLUTICASONE PROP 0.05% NASAL SPRAY 16 GM (FLONASE) SCH (21:34)
[2017-05-05] MEDS: FERROUS SULFATE 325MG TAB PO SCH (21:34)
[2017-05-05] MEDS: ATORVASTATIN 20 MG TAB PO SCH (21:34)
[2017-05-05] MEDS: METOPROLOL TART 25 MG TABLET PO SCH (21:35)
[2017-05-05 22:00] VITALS: BP 113/58
[2017-05-06 06:00] VITALS: BP 97/55
[2017-05-06 06:28] LABS: MEAN CORPUSCULAR HEMOGLOBIN 21.8 pg (27.0-33.0); MEAN CORPUSCULAR HGB CONC 28.4 g/dl (32.0-36.5); MEAN CORPUSCULAR VOLUME 76.5 fl (80.0-96.0); PLATELET COUNT, AUTOMATED 483 k/mm3 (150-450); RED CELL DISTRIBUTION WIDTH 17.7 % (11.5-14.5); WHITE BLOOD COUNT 6.6 K/mm3 (4.0-10.0)
[2017-05-06 06:37] LABS: ANION GAP 5 MEQ/L (8-16); BLOOD UREA NITROGEN 15 MG/DL (7-18); CALCIUM LEVEL 8.7 MG/DL (8.8-10.2); CARBON DIOXIDE LEVEL 30 MEQ/L (21-32); CHLORIDE LEVEL 106 MEQ/L (98-107); CREATININE FOR GFR 0.92 MG/DL (0.55-1.02); GLOMERULAR FILTRATION RATE > 60.0 (>32); GLUCOSE, FASTING 87 MG/DL (83-110); POTASSIUM SERUM 3.9 MEQ/L (3.5-5.1); SODIUM LEVEL 141 MEQ/L (136-145)
[2017-05-06] MEDS: NORCO, ANEXSIA 5/325MG TABLET (HYDROcodone/ACETAMINOPHEN) PO PRN ×3 (07:18→20:33)
[2017-05-06] MEDS: ADVAIR DISKUS 250/50 INH PWD INH SCH ×2 (07:20→19:29)
[2017-05-06] MEDS: IPRATROPIUM 0.5MG/ALBUTEROL 2.5MG INH SOL UD 3ML (DUONEB)(J7620) NEB SCH ×5 (07:20→23:19)
[2017-05-06] MEDS: MIRALAX *UNIT DOSE* 17GM PACKET PO SCH (09:00)
[2017-05-06] MEDS: METOPROLOL TART 25 MG TABLET PO SCH ×2 (09:00→20:49)
[2017-05-06 10:21] VITALS: BP 90/38
[2017-05-06] MEDS: SUCRALFATE 1 GM TAB PO SCH ×4 (10:21→20:33)
[2017-05-06] MEDS: FERROUS SULFATE 325MG TAB PO SCH ×2 (10:21→20:33)
[2017-05-06] MEDS: ASPIRIN 81 MG ENTERIC TAB PO SCH (10:21)
[2017-05-06] MEDS: OMEPRAZOLE 20 MG CAP PO SCH (10:21)
[2017-05-06] MEDS: VITAMIN D 1,000 INTERNATIONAL UNITS TABLET PO SCH (10:21)
[2017-05-06] MEDS: FLUTICASONE PROP 0.05% NASAL SPRAY 16 GM (FLONASE) SCH ×2 (10:22→20:33)
[2017-05-06] MEDS ORDERED: SODIUM CHLORIDE 0.9% 1000 ML IV ONE (11:15)
[2017-05-06] MEDS: ASCORBIC ACID 500 MG TAB PO SCH (12:03)
[2017-05-06 13:15] LABS: PERCENT SATURATION 58.9 % (13.2-37.4); TOTAL IRON BINDING CAPACITY 401 UG/DL (250-450)
[2017-05-06 13:40] LABS: RETIC HEMOGLOBIN CONTENT CHr 23.1 PG (24-36); RETICULOCYTE ABSOLUTE ADVIA212 97 x10(9)/L (17-77)
[2017-05-06 13:45] LABS: REASON FOR REVIEW COMPREHENSIVE REVIEW
[2017-05-06 14:00] VITALS: BP 87/52
[2017-05-06 14:01] VITALS: BP 97/59
[2017-05-06 14:02] VITALS: BP 100/44
--- NOTE | 2017-05-06 16:13 | IPN ---
DATE: 05/06/2017 The patient seen and examined at the bedside. Chart has been reviewed. She denies any current nausea, vomiting or diarrhea currently. She had two bowel movements yesterday. GI panel was negative. The patient admits to taking MiraLAX daily at home as she has been anemic and takes MiraLAX daily to prevent severe constipation. She currently denies any dizziness, lightheadedness. No fever, chills, cough, chest pain, pressure, tightness of palpitations. Temperature is 97.9, pulse 82, respiratory 20, blood pressure 90/38. Pulse of 99% on 1 liter nasal cannula, 83% on room air. GENERAL: The patient is awake, alert, oriented times three. Answering questions appropriately. No pallor, icterus or jaundice. No jugular venous distention. LUNGS: Diminished but clear to auscultation. No wheezing or rales. HEART: S1, S2. Sinus rhythm. ABDOMEN: Soft, nontender, nondistended. Positive bowel sounds in four quadrants. EXTREMITIES: No pitting edema. LABORATORY DATA: White count 6.6, hemoglobin 8.4, hematocrit 29.4, platelet count 483. Sodium 141, potassium 3.9, chloride 106, bicarbonate 30, BUN 15, creatinine 0.92, glucose of 87, lactic acid 1.5. Microbiology: GI panel is negative. CT abdomen and pelvis 05/05/2017 shows sigmoid colon diverticulosis, stable chronic changes. No evidence for acute intra-abdominal or intrapelvic disease. ASSESSMENT AND PLAN: This is an 89-year-old female that lives alone. History of COPD. Previously had seen Dr. Guidry. Iron deficiency anemia. Gastroesophageal reflux disease. Coronary artery disease (CAD). Sees Dr. Blake. Hypertension, dyslipidemia, osteoarthritis, had a colonoscopy showing internal hemorrhoids and external hemorrhoids, grade 3 diverticulosis as outpatient with EGD showing gastritis and duodenal angioectasia, coronary stents in the past presents to the emergency room with nausea, vomiting and diarrhea admitted for gastroenteritis, was found to be hypoxic in the emergency room. Chest x-ray being negative. She was placed on 2 liters nasal cannula titrating at 97% was previously found to be 80% on room air. Current issues are as follows: 1. Nausea, vomiting and diarrhea. Most likely secondary to gastroenteritis versus the MiraLAX that she takes daily. GI panel was negative. Her diet has been advanced. Symptoms have resolved. The patient has a history of gastritis, currently on Carafate. 2. Hypoxia with history of COPD. The patient does not have any active wheezing. Currently on nebulizer treatments and supplemental oxygen. 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 Differential for shortness of breath also includes cor pulmonale, therefore, will get an echocardiogram. She does not appear to have left-sided heart failure therefore will continue with current nebulizer, supplemental oxygen. 3. History of hypertension and COPD. Follows with Dr. Blake. Continue metoprolol with holding parameters due to systolic pressure of 90/38. Check for orthostatics and slight fluid hydration. 4. Iron deficiency anemia with history of internal grade 3 hemorrhoids. Check hemoglobin and hematocrit. Hemoccult stool if persistent symptoms. May benefit from red blood cell transfusion. Obtain iron studies, peripheral blood smear and start on vitamin C and iron.
[2017-05-06] MEDS: ENOXAPARIN 40 MG/0.4 ML SYRINGE (J1650) SC SCH (17:52)
[2017-05-06] MEDS: ATORVASTATIN 20 MG TAB PO SCH (20:32)
[2017-05-06] MEDS: GABAPENTIN 300 MG CAP PO SCH (20:33)
[2017-05-06 22:00] VITALS: BP 123/60
[2017-05-07] MEDS: IPRATROPIUM 0.5MG/ALBUTEROL 2.5MG INH SOL UD 3ML (DUONEB)(J7620) NEB SCH ×6 (03:29→23:56)
[2017-05-07 06:00] VITALS: BP 127/53
[2017-05-07] MEDS ORDERED: ACETAMINOPHEN TAB 650MG DOSE (2X325MG) PO ONE (07:00)
[2017-05-07] MEDS ORDERED: diphenhydrAMINE 25 MG CAP PO ONE (07:00)
[2017-05-07] MEDS ORDERED: FERR1TAB8 PO (07:08)
[2017-05-07] MEDS ORDERED: SENO8.6T10 PO (07:08)
[2017-05-07] MEDS ORDERED: VITA500T PO (07:08)
[2017-05-07] MEDS: ADVAIR DISKUS 250/50 INH PWD INH SCH ×2 (07:14→20:05)
[2017-05-07 07:23] LABS: MEAN CORPUSCULAR HEMOGLOBIN 21.9 pg (27.0-33.0); MEAN CORPUSCULAR HGB CONC 28.8 g/dl (32.0-36.5); MEAN CORPUSCULAR VOLUME 76.2 fl (80.0-96.0); RED CELL DISTRIBUTION WIDTH 17.5 % (11.5-14.5); WHITE BLOOD COUNT 7.5 K/mm3 (4.0-10.0)
[2017-05-07 07:28] LABS: ANION GAP 3 MEQ/L (8-16); BLOOD UREA NITROGEN 17 MG/DL (7-18); CALCIUM LEVEL 8.7 MG/DL (8.8-10.2); CARBON DIOXIDE LEVEL 31 MEQ/L (21-32); CHLORIDE LEVEL 109 MEQ/L (98-107); CREATININE FOR GFR 0.78 MG/DL (0.55-1.02); GLOMERULAR FILTRATION RATE > 60.0 (>32); GLUCOSE, FASTING 94 MG/DL (83-110); POTASSIUM SERUM 4.3 MEQ/L (3.5-5.1); SODIUM LEVEL 143 MEQ/L (136-145)
[2017-05-07] MEDS: METOPROLOL TART 25 MG TABLET PO SCH ×2 (09:00→20:12)
[2017-05-07] MEDS: MIRALAX *UNIT DOSE* 17GM PACKET PO SCH (10:26)
[2017-05-07] MEDS: VITAMIN D 1,000 INTERNATIONAL UNITS TABLET PO SCH (10:27)
[2017-05-07] MEDS: ASPIRIN 81 MG ENTERIC TAB PO SCH (10:27)
[2017-05-07] MEDS: FERROUS SULFATE 325MG TAB PO SCH ×2 (10:27→20:11)
[2017-05-07] MEDS: SUCRALFATE 1 GM TAB PO SCH ×4 (10:27→20:11)
[2017-05-07] MEDS: OMEPRAZOLE 20 MG CAP PO SCH (10:27)
[2017-05-07] MEDS: ASCORBIC ACID 500 MG TAB PO SCH (10:27)
[2017-05-07] MEDS: FLUTICASONE PROP 0.05% NASAL SPRAY 16 GM (FLONASE) SCH ×2 (10:29→20:12)
[2017-05-07 14:00] VITALS: BP 143/68
[2017-05-07] MEDS: FUROSEMIDE 20 MG/2 ML VIAL (J1940) IV SCH ×2 (14:34→19:16)
[2017-05-07] MEDS: ENOXAPARIN 40 MG/0.4 ML SYRINGE (J1650) SC SCH (17:32)
[2017-05-07] MEDS: ATORVASTATIN 20 MG TAB PO SCH (20:11)
[2017-05-07] MEDS: GABAPENTIN 300 MG CAP PO SCH (20:11)
--- NOTE | 2017-05-07 20:50 | IPN ---
DATE: 05/07/2017 The patient is seen and examined at the bedside. Chart has been reviewed. This morning, the patient continues to complain of fatigue and weakness, shortness of breath, desaturating to 83% on room air. Current hemoglobin and hematocrit are 7.9 and 27.5. GI panel is negative. Denies any chest pain, pressure, tightness, palpitations, or lightheadedness. VITAL SIGNS: Temperature 98.6, pulse 89, respiratory rate 18, blood pressure 127/53, 96% on 1 liter nasal cannula. GENERAL: The patient is hard of hearing. Awake, alert, oriented times three. Slight pallor. No icterus or jaundice. No jugular venous distention (JVD). LUNGS: Diminished, but clear. No wheezing or rales. HEART: S1, S2. Sinus rhythm. ABDOMEN: Soft, nontender, nondistended. Positive bowel sounds. EXTREMITIES: No cyanosis, clubbing or any pitting edema. LABORATORY DATA: White count 7.5, hemoglobin 7.9, hematocrit 27, platelet count 464. Peripheral smear from 05/06/2017: Iron deficiency. White cells and platelets are normal. Metabolic panel: Sodium 143, potassium 4.6, chloride 109, bicarbonate 31, BUN 17, creatinine 0.78, glucose of 94. Urine culture on 05/05/2017, contaminated. IMAGING STUDIES: CT of the abdomen and pelvis showed stable, chronic changes. No evidence of acute intraabdominal or intra-pelvis pathology. ASSESSMENT AND PLAN: This is an 89-year-old female who lives alone with a history of chronic obstructive pulmonary disease (COPD), previously seen by Dr. Guidry, iron deficiency anemia, reflux, coronary artery disease, follows with Dr. Blake, hypertension, dyslipidemia, osteoarthritis, had a recent colonoscopy showing internal hemorrhoids and external hemorrhoids, grade 3 diverticulosis as an outpatient. EGD showing gastritis and duodenal angioectasia. She had a previous history of coronary artery stents. She presents to the emergency room with nausea, vomiting, diarrhea, but had been taking MiraLAX to prevent constipation from chronic iron use. She was admitted for possible gastroenteritis and was found to be hypoxic in the emergency room. Chest x-ray was negative. She was placed on 2 liters nasal cannula and titrated to 97% with 82% with room air with 25 feet of ambulation. The patient has no risk factors for pulmonary embolism. Does not have any lower extremity edema. CURRENT ISSUES: 1. Nausea, vomiting, diarrhea, resolved. GI panel was negative. Most likely secondary to MiraLAX that she was taking at home for the viral infection, which has subsided. Diet has been advanced. She had a prior history of gastritis, currently on Carafate. 2. Hypoxia with history of chronic obstructive pulmonary disease (COPD). No risk factors for pulmonary embolism. Most likely secondary to symptomatic anemia. The patient will need outpatient workup and followup with Dr. Guidry with repeat pulmonary function testing. Differential includes cor pulmonale. Therefore, we will obtain an echocardiogram. She does not appear to have decompensated left sided heart failure at this time. No active wheezing on examination. Therefore, we will continue only on supplemental oxygen, nebulizer treatments. No need for steroids right now. 3. Hypertension, history of coronary artery disease. Follows with Dr. Blake. Continue with beta blockade. Monitor and holding parameters for systolic blood pressure less than 100. 4. Iron deficiency anemia with history of internal grade 3 hemorrhoids. Check hemoccult stool due to symptomatic anemia, complaints of fatigue, and severe hypoxia. We will obtain hemoccult stool and transfuse 2 units of red blood cells. DISPOSITION: Discharge home in the morning if stable.
[2017-05-07 22:00] VITALS: BP 145/70
[2017-05-08] MEDS: IPRATROPIUM 0.5MG/ALBUTEROL 2.5MG INH SOL UD 3ML (DUONEB)(J7620) NEB SCH ×3 (04:00→11:37)
[2017-05-08] MEDS: NORCO, ANEXSIA 5/325MG TABLET (HYDROcodone/ACETAMINOPHEN) PO PRN (05:40)
[2017-05-08 06:00] VITALS: BP 140/69
[2017-05-08 06:53] LABS: MEAN CORPUSCULAR HEMOGLOBIN 24.2 pg (27.0-33.0); MEAN CORPUSCULAR HGB CONC 31.1 g/dl (32.0-36.5); MEAN CORPUSCULAR VOLUME 77.8 fl (80.0-96.0); RED CELL DISTRIBUTION WIDTH 17.9 % (11.5-14.5); WHITE BLOOD COUNT 7.1 K/mm3 (4.0-10.0)
[2017-05-08 07:17] LABS: ANION GAP 6 MEQ/L (8-16); BLOOD UREA NITROGEN 11 MG/DL (7-18); CALCIUM LEVEL 8.9 MG/DL (8.8-10.2); CARBON DIOXIDE LEVEL 30 MEQ/L (21-32); CHLORIDE LEVEL 105 MEQ/L (98-107); CREATININE FOR GFR 0.81 MG/DL (0.55-1.02); GLOMERULAR FILTRATION RATE > 60.0 (>32); GLUCOSE, FASTING 87 MG/DL (83-110); POTASSIUM SERUM 3.5 MEQ/L (3.5-5.1); SODIUM LEVEL 141 MEQ/L (136-145)
[2017-05-08] MEDS: ADVAIR DISKUS 250/50 INH PWD INH SCH (07:30)
--- NOTE | 2017-05-08 07:37 | ECHO ---
DATE OF PROCEDURE: 05/08/17 REFERRING PHYSICIAN: Dr. Tipton. INDICATION: Dyspnea. HEIGHT: 147 cm. WEIGHT: 57 kg. DIMENSION: IVS: 1.2 LV: 3.2 LVPW: 1.2 LA: 2.7 Aorta: 2.8 FINDINGS The study is of acceptable technical quality. Left ventricle is normal size and systolic function with estimated LVEF 70-75%. Mild left ventricular hypertrophy is present. Right ventricle was of normal size and systolic function. Left atrium is at least mildly enlarged. Right atrium is probably normal. Aortic, mitral and tricuspid valves appear grossly normal for patient's age. Pulmonic valve was not well seen. Trivial pericardial effusion is noted. Inferior vena cava is normal size. Aortic root is normal. Aortic arch and abdominal aorta were not visualized. Doppler interrogation reveals no aortic insufficiency and trivial stenosis with mean gradient only 6 mmHg. Mitral and tricuspid valves are functionally competent without stenosis or insufficiency. There is no significant pulmonic insufficiency. Mitral inflow pattern and tissue Doppler imaging of mitral annulus reveal grade 1 diastolic dysfunction. CONCLUSIONS: 1. Study is of acceptable technical quality. 2. Normal LV size with mild LVH and hyperdynamic LV systolic function. Grade 1 diastolic dysfunction. 3. No significant valvular disease. 4. Normal central venous pressure. 5. Unable to estimate pulmonary artery pressure but no signs to suggest pulmonary hypertension. COMMENT: Subacute bacterial endocarditis (SBE) prophylaxis is not recommended. MTDD
[2017-05-08 09:00] VITALS: BP 117/70
[2017-05-08] MEDS: METOPROLOL TART 25 MG TABLET PO SCH (09:00)
[2017-05-08] MEDS: MIRALAX *UNIT DOSE* 17GM PACKET PO SCH (09:59)
[2017-05-08] MEDS: FLUTICASONE PROP 0.05% NASAL SPRAY 16 GM (FLONASE) SCH (09:59)
[2017-05-08] MEDS: OMEPRAZOLE 20 MG CAP PO SCH (09:59)
[2017-05-08] MEDS: VITAMIN D 1,000 INTERNATIONAL UNITS TABLET PO SCH (09:59)
[2017-05-08] MEDS: ASPIRIN 81 MG ENTERIC TAB PO SCH (09:59)
[2017-05-08] MEDS: SUCRALFATE 1 GM TAB PO SCH ×2 (09:59→12:46)
[2017-05-08] MEDS: FERROUS SULFATE 325MG TAB PO SCH (09:59)
[2017-05-08] MEDS: ASCORBIC ACID 500 MG TAB PO SCH (09:59)
--- NOTE | 2017-05-09 06:26 | DSES ---
DATE OF ADMISSION: 05/07/2017 DATE OF DISCHARGE: 05/08/2017 PRIMARY DISCHARGE DIAGNOSES: 1. Nausea, vomiting, diarrhea, most likely gastroenteritis versus secondary to MiraLAX. 2. Hypoxia with history of chronic obstructive pulmonary disease (COPD) requiring one liter nasal cannula at discharge, saturating 80% to 82% on room air. 3. Hypertension with history of coronary artery disease. Repeat echocardiogram shows normal ejection fraction (EF). 4. Diastolic dysfunction. 5. Iron-deficiency anemia with heme-positive stool secondary to grade 3 hemorrhoids, status post two units of red blood cell transfusions. DISCHARGE MEDICATIONS: - Vitamin C 500 mg daily - Senokot-S one tablet by mouth twice a day as needed for constipation - ferrous sulfate 325 mg by mouth twice a day - hydrocodone/acetaminophen one tablet every four as needed - aspirin 81 mg daily - atorvastatin 20 mg at bedtime - Refresh one drop both eyes as needed for dry eyes - vitamin D 1000 units daily - fluticasone one spray twice a day - gabapentin 300 mg at bedtime - ipratropium two puffs four times a day - metoprolol 25 twice a day - Prilosec 40 daily - MiraLAX 17 grams daily, hold for diarrhea - PreserVision Areds two capsules by mouth twice a day - Advair Diskus 14 puffs, one puff inhaled twice a day HOSPITAL COURSE: This is an 89-year-old female who lives alone, history of chronic obstructive pulmonary disease (COPD) previously seen by Dr. Guidry, iron-deficiency anemia, reflux, coronary artery disease (CAD), follows with Dr. Blake, hypertension, dyslipidemia, osteoarthritis, had a recent colonoscopy showing internal hemorrhoids and external hemorrhoids grade 3, diverticulosis, and anemia. 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 The patient has previous history of CAD with stent placement. She presented to the emergency room with nausea, vomiting, diarrhea, but had been taking MiraLAX for her constipation from chronic iron use. The patient was admitted for possible gastroenteritis. Was found to be hypoxic with without overt wheezing. Chest x-ray was negative. She was saturating 80-82% on room air with 25 feet of ambulation. Was placed on 12 liters of oxygen, titrated to 97% on one liter. Has no risk factors for pulmonary embolism, with CT abdomen and pelvis showing stable chronic changes, with no acute intra-abdominal or intrapelvic disease. The patient had no risk factors for pulmonary embolism. Echocardiogram performed regarding her history of CAD, stent placement. Showed normal ejection fraction with diastolic dysfunction. The patient appears to be euvolemic. Iron studies were done. The patient was placed on vitamin C and iron, transfused two units of red blood cells due to symptomatic anemia and complaints of shortness of breath, fatigue and weakness. She was continued on all her home medications and encouraged to followup with her hand button splitter, Dr. Guidry, primary care physician as outpatient LABORATORY DATA ON DISCHARGE: White count of 7.1, hemoglobin 10.9, hematocrit 35, platelet count 387. Sodium 141, potassium 3.5, chloride 104, bicarbonate 30, BUN 11, creatinine 0.81, glucose 87. GI panel negative. MICROBIOLOGY: Urine culture 05/05 appears contaminated. IMAGING: CT abdomen and pelvis: Chronic stable changes. No acute intra-abdominal or intrapelvic disease. Chest x-ray: Chronic interstitial fibrosis with left lower lobe atelectasis. TIME SPENT ON DISCHARGE: 30 minutes.
== END 2017-05-08 13:59 | disposition home health service (06) | DRG 392 ==
LOC: M ED 09:57 → EDBD 09:57 → M ED INP 16:08 → M MSPAV 17:35 → OBSVTOIN 05-07 07:00
PROVIDERS: ADMIT Internal Medicine; ATTEND General Practice
PROC: 30233N1 Transfusion of Nonautologous Red Blood Cells into Peripheral Vein, Percutaneous Approach (ICD-10-PCS; principal; 2017-05-07)
DX: K52.9 Noninfective gastroenteritis and colitis, unspecified (principal); K31.819 Angiodysplasia of stomach and duodenum without bleeding; I10 Essential (primary) hypertension; J44.9 Chronic obstructive pulmonary disease, unspecified; I25.10 Atherosclerotic heart disease of native coronary artery without angina pectoris; D50.9 Iron deficiency anemia, unspecified; Z79.899 Other long term (current) drug therapy; Z79.82 Long term (current) use of aspirin; K21.9 Gastro-esophageal reflux disease without esophagitis; M19.90 Unspecified osteoarthritis, unspecified site; K64.2 Third degree hemorrhoids; K57.30 Diverticulosis of large intestine without perforation or abscess without bleeding; E78.5 Hyperlipidemia, unspecified; Z88.2 Allergy status to sulfonamides; Z88.0 Allergy status to penicillin; Z88.8 Allergy status to other drugs, medicaments and biological substances; Z88.7 Allergy status to serum and vaccine; E55.9 Vitamin D deficiency, unspecified; R09.02 Hypoxemia; K59.00 Constipation, unspecified

== ENCOUNTER 2017-05-18 12:35 | Emergency (ER) | payer MEDICARE, MEDICAID ==
[~2017-05-18] VITALS: Ht 147.3 cm; Wt 57.7 kg
[~2017-05-18 12:35] MED LIST changes: -ENOXAPARIN 40 MG/0.4 ML SYRINGE (J1650) SC SCH; +FERR1TAB8 PO; +FLUT1SPR2; +OMEP40CA2 PO; +SENO8.6T10 PO; +VITA500T PO
[2017-05-18] MEDS ORDERED: PANTOPRAZOLE 40MG INJ (PROTONIX) (C9113) IV ONE (13:00)
[2017-05-18] MEDS ORDERED: ONDANSETRON 4MG/2ML VIAL (J2405) IV ONE (13:00)
[2017-05-18] MEDS ORDERED: NS 1,000 ML IV ONE (13:00)
[2017-05-18 13:18] LABS: BASO # 0.1 K/mm3 (0.0-0.2); BASO % 0.8 % (0.0-1.0); EOS # 0.1 K/mm3 (0.0-0.50); EOS % 1.8 % (0.0-3.0); LARGE UNSTAINED CELL # 0.1 K/mm3 (0.0-0.4); LYMPH # 0.9 K/mm3 (1.5-4.5); LYMPH % 12.8 % (24.0-44.0); MEAN CORPUSCULAR HEMOGLOBIN 25.3 pg (27.0-33.0); MEAN CORPUSCULAR HGB CONC 30.4 g/dl (32.0-36.5); MEAN CORPUSCULAR VOLUME 83.2 fl (80.0-96.0); MONO # 0.3 K/mm3 (0.0-0.8); MONO % 3.6 % (0.0-5.0); NEUTROPHILS # 5.5 K/mm3 (1.8-7.7); PLATELET COUNT, AUTOMATED 383 k/mm3 (150-450); RED CELL DISTRIBUTION WIDTH 22.1 % (11.5-14.5); WHITE BLOOD COUNT 6.9 K/mm3 (4.0-10.0)
[2017-05-18 13:37] LABS: ALBUMIN 3.5 GM/DL (3.2-5.2); ALBUMIN/GLOBULIN RATIO 0.88 (1.00-1.93); ALKALINE PHOSPHATASE 76 U/L (45-117); ALT/SGPT 21 U/L (12-78); ANION GAP 6 MEQ/L (8-16); AST/SGOT 21 U/L (15-37); BILIRUBIN,DIRECT < 0.1 MG/DL (0.0-0.2); BILIRUBIN,TOTAL 0.4 MG/DL (0.2-1.0); BLOOD UREA NITROGEN 21 MG/DL (7-18); CALCIUM LEVEL 9.3 MG/DL (8.8-10.2); CARBON DIOXIDE LEVEL 30 MEQ/L (21-32); CHLORIDE LEVEL 107 MEQ/L (98-107); CREATININE FOR GFR 0.87 MG/DL (0.55-1.02); GLOMERULAR FILTRATION RATE > 60.0 (>32); GLUCOSE, FASTING 163 MG/DL (83-110); POTASSIUM SERUM 4.2 MEQ/L (3.5-5.1); SODIUM LEVEL 143 MEQ/L (136-145); TOTAL PROTEIN 7.5 GM/DL (6.4-8.2)
--- NOTE | 2017-05-18 14:09 | REP ---
CT ABDOMEN AND PELVIS WITHOUT CONTRAST: CT abdomen and pelvis is performed without oral or IV contrast. Sagittal and coronal reconstruction images are performed. Comparison made with a prior study of 05/05/2017. There are mild bibasilar fibroatelectatic changes again seen. There is a large hiatal hernia. The liver is grossly unremarkable. Calcified granulomas are seen in the spleen. The adrenals and pancreas are grossly unremarkable. The kidneys demonstrate no hydronephrosis. There is a small cyst in the lower pole of each kidney. Moderate atherosclerotic calcifications are seen of the abdominal aortic with tortuosity, but no aneurysm. There is no adenopathy. There is no free air or free fluid. No bowel wall thickening is seen. There is extensive sigmoid diverticulosis without evidence of acute diverticulitis. No pelvic mass is seen. Urinary bladder is mildly distended and grossly unremarkable. There are degenerative changes of the spine. IMPRESSION: Chronic findings as above with no acute abnormalities. Signed by Samuel Medellin MD 05/18/2017 05:25 P
[2017-05-18] MEDS ORDERED: ZOFR4TAB3 PO (15:53)
[2017-05-18 16:40] VITALS: BP 146/76
== END 2017-05-18 16:42 | disposition home or self-care (01) ==
LOC: M ED 12:35
DX: R10.11 Right upper quadrant pain (principal); R11.0 Nausea; I51.9 Heart disease, unspecified; I10 Essential (primary) hypertension; E78.5 Hyperlipidemia, unspecified; J44.9 Chronic obstructive pulmonary disease, unspecified; Z95.5 Presence of coronary angioplasty implant and graft; Z87.891 Personal history of nicotine dependence; Z82.49 Family history of ischemic heart disease and other diseases of the circulatory system; Z79.82 Long term (current) use of aspirin; Z79.899 Other long term (current) drug therapy; Z88.0 Allergy status to penicillin; Z88.2 Allergy status to sulfonamides; Z88.7 Allergy status to serum and vaccine; Z91.89 Other specified personal risk factors, not elsewhere classified; Z88.1 Allergy status to other antibiotic agents
CPT/HCPCS: 36415; 74176; 80048; 80076; 81001; 83690; 85025; 87086; 96361; 96374; 96375; 99284; C9113; J2405

== ENCOUNTER → 2017-05-25 | Outpatient (CLI) | payer MEDICARE, MEDICAID ==
[~2017-05-25] MED LIST changes: +ZOFR4TAB3 PO
--- NOTE | 2017-06-13 00:57 | ECWPNPC ---
PATIENT NAME: SHARON HERNÁNDEZ : 1925 GENDER: FEMALE VISIT DATE: 05/25/2017 DISCHARGE DATE: 05/25/17 1020 VISIT LOCKED DATE TIME: PHYSICIAN: DANILO DE LEON RESOURCE: DANILO DE LEON REASON FOR APPOINTMENT 1. RIGHT SHOULDER/BACK HISTORY OF PRESENT ILLNESS HISTORY OF PRESENT ILLNESS: PAIN THE PATIENT DESCRIBES THE PAIN... FALL RISK SCREENING: SCREENING :NO FALLS IN THE PAST YEAR TODAY'S VISIT: NOTES: RATES PAIN LEVEL TODAY 8/10. DESCRIBES IT INTERMITTANT, SHARP AND SORE. REPORTS PAIN IN NUMEROUS LOCATIONS INCLUDING LOW BACK AND SCIATIC REGION. HAS HAD NUMEROUS ER VISITS FOR VARIOUS COMPLAINR]TS. IS SUPPOSED TO BE USING OXYGEN AT 2 L/NC BUT REPORTS SHE DOES NOT HAVE THIS AVAILABLE. OXYGEN APPLIED AT 2/\\L/NC WITH IMPROVEMNT IN BREATHING AND O2 SAT. NOTES INCREASED PAIN IN RIGHT SHOULDER AND LEFT SCIATIC WITH RADIATION TO LEFT KNEE. . CURRENT MEDICATIONS TAKING METOPROLOL TARTRATE 25 MG TAB ORAL BID TAKING ATORVASTATIN CALCIUM 20 MG TABLET 1 TABLET ORALLY ONCE A DAY TAKING HYDROCODONE-ACETAMINOPHEN 5-325 MG TABLET 1 TABLET NEEDED ORALLY EVERY 4 HRS PRN TAKING EYE-BEULAH EXTRA PLUS LUTEIN TABLET ORALLY TAKING ADVAIR DISKUS 100-50 MCG/DOSE MISCELLANEOUS INHALATION TAKING VITAMIN D 1000 UNIT CAPSULE 1 CAPSULE ORALLY ONCE A DAY TAKING ASPIRIN ADULT LOW DOSE 81 MG TABLET DELAYED RELEASE 1 TABLET ORALLY ONCE A DAY TAKING GABAPENTIN 300 300 MG TABLET 1 OR 2 ORAL AT HS PRN TAKING FLONASE 50 MCG/DOSE INHALER 1 SPRAY IN EACH NOSTRIL NASALLY ONCE A DAY TAKING NITROGLYCERIN 0.4 MG TABLET SUBLINGUAL SUBLINGUAL PRN CHEST PAIN, NOTES: 07/11/16@0100 TAKING ASPERCREME 10 % CREAM 1 APPLICATION TO AFFECTED AREA NEEDED EXTERNALLY 2-3X/DAY, NOTES: 07/14/16@2100 TAKING LIDOCAINE 5 % PATCH 1 PATCH TO INTACT SKIN REMOVE AFTER 12 HOURS EXTERNALLY ONCE A DAY ON 12 HRS, OFF 12 HRS TO LOW BACK/SHOULDERS TAKING ASCORBIC ACID 500 MG TABLET CHEWABLE 1 TABLET ORALLY ONCE A DAY TAKING FERROUS SULFATE 325 (65 FE) MG TABLET 1 TABLET ORALLY TWICE DAILY TAKING OMEPRAZOLE 40 MG CAPSULE DELAYED RELEASE 1 CAPSULE ORALLY ONCE A DAY TAKING ATROVENT HFA 17 MCG/ACT AEROSOL SOLUTION 2 PUFFS INHALATION FOUR TIMES A DAY TAKING ONDANSETRON 4 MG TABLET DISINTEGRATING 1 TABLET ON THE TONGUE AND ALLOW TO DISSOLVE ORALLY EVERY 4 HOURS NEEDED TAKING POLYETHYLENE GLYCOL - POWDER 1 CAP ORALLY DAILY TAKING CARBOXYMETHYLCELLULOSE SODIUM 0.5 % SOLUTION 1 DROP INTO AFFECTED EYE NEEDED OPHTHALMIC 24 TIME(S) A DAY NOT-TAKING VITAMIN B-1 1000 MG TABLET 1 TABLET ORALLY ONCE A DAY NOT-TAKING FISH OIL 1000 MG CAPSULE 1 CAPSULE ORALLY ONCE A DAY NOT-TAKING SLEEP AID 25 MG TABLET 1 TABLET AT BEDTIME NEEDED ORALLY AT HS PRN NOT-TAKING PANTOPRAZOLE SODIUM 40 MG TABLET DELAYED RELEASE 1 TABLET ORALLY ONCE A DAY, NOTES: 629 MEDICATION LIST REVIEWED AND RECONCILED WITH THE PATIENT PAST MEDICAL HISTORY HTN OSTEO ARTHRITIS CORONARY ARTERY DISEASE ANEMIA ALLERGIES PENICILLIN (FOR ALLERGIES USE ONLY): HIVES: ALLERGY SULFA (FOR ALLERGY USE ONLY): CONFUSION: ALLERGY ERYTHROMYCIN: CONFUSION: ALLERGY REVIEW OF SYSTEMS REVIEWED BY: PROVIDER: DANILO CALDERÓN . CONSTITUTIONAL: ANY CHANGE IN YOUR MEDICAL CONDITION? NO . CHILLS NO . FEVER NO . INFECTION: DO YOU HAVE NEW INFECTIONS? NO . DO YOU HAVE HISTORY OF MRSA? NO . MUSCULOSKELETAL: ANY NEW PATTERNS OF PAIN OR NUMBNESS? NO . GASTROENTEROLOGY: ANY NEW CHANGE IN BOWEL CONTROL? NO . GENITOURINARY: ANY NEW CHANGE IN BLADDER CONTROL? NO . IS THERE A CHANCE YOU COULD BE ? NO . HEMATOLOGY/LYMPH: BLOOD TRANSFUSION 3 WEEKS AGO - 2 UNITS PRBCS . DO YOU TAKE ANY BLOOD THINNERS? (FOR EXAMPLE- COUMADIN, PLAVIX, AGGRENOX, PLATEL, PRADAXA, OR XARELTO) NO . WHEN WAS YOUR LAST DOSE? DATE: TIME: . NEUROLOGY: HAVE YOU FALLEN IN THE PAST 6 MONTHS? NO . ANY NEW EXTREMITY NUMBNESS OR WEAKNESS? NO . CARDIOLOGY: DO YOU HAVE A PACEMAKER OR DEFIBRILLATOR? NO . CHEST PAIN PATIENT ADMITS - INTERMITTANT - IN ER IN DECEMBER - CARDIAC WORKUP CLEAR . RESPIRATORY: HAVE YOU BEEN SICK IN THE PAST WEEK? NO . FEVER NO . FLU LIKE SYMPTOMS? NO . SHORTNESS OF BREATH ON EXERTION REQUIRES CHRONIC OXYGEN VERY SHORT OF BREATH WITH ACTIVITY . COUGH YES - NO PRODUCTION . INTEGUMENTARY: DO YOU HAVE ANY RASHES OR OPEN SORES? NO . ALLERGIC/IMMUNO: ARE YOU ALLERGIC TO SHELLFISH OR IV DYE? NO . ANY NEW ALLERGIES? NO . PSYCHIATRIC: DO YOU HAVE THOUGHTS OF HURTING YOURSELF OR SOMEONE ELSE? NO . ARE YOU ABUSED, NEGLECTED, OR IN AN UNSAFE ENVIRONMENT? NO . ENDOCRINOLOGY: ARE YOU DIABETIC? NO . OTHER: DO YOU NEED ANY PRESCRIPTIONS? NO . IF YES, PLEASE LIST: ____ . ANY NEW PROBLEMS WITH YOUR MEDICATIONS? NO . WHEN DID YOU LAST EAT? ____ . WHEN DID YOU LAST DRINK? ____ . WHAT DID YOU LAST DRINK? ____ . NAME OF PERSON DRIVING YOU HOME? ____ . DO YOU HAVE ANY OTHER QUESTIONS OR CONCERNS NO . PSYCHOLOGY: HIGH STRESS LEVEL RECENT LOSS OF OF 71 YEARS. . VITAL SIGNS WT 126.8 LBS, HT 4'1", BMI 37.13 INDEX, BP 120/65 MM HG, HR 68 /MIN, RR 68 /MIN, TEMP 96.8 F, OXYGEN SAT % 89%, [place] [id number] 02 STAT WAS LOW WHEN SHE CAME INTO THE OFFICE, 2L WAS PUT ON THE PATIENT AND IT CAME UP TO 89% AT THIS TIME, SHALINI Silva IS AWARE- TL. EXAMINATION GENERAL EXAMINATION: LUNGS:DECREASED AIR ENTRY AT BASES, CLEAR TO AUSCULTATION BILATERALLY COUGH WITH DEEP BREATH. HEART:HEART RATE REGULAR, NO MURMURS, CLICK OR RUBS. MUSCULOSKELETAL:NO TENDERNESS OVER LEFT SIJ. NEGATIVE SIDNEY SIGN., MUSCLE STRENGTH TESTING 5/5 BILATERAL LOWER EXTREMITIES. RISES EASILY TO STANDING POSITION, TENDERNESS TO PALPATION OVER LEFT DELTOID AND LEFT AC JOINT, TRIGGER POINTS:, ELICITED WITH PALPATION OVER CERVICAL SPINOUS PROCESSES AND ACROSS THE TRAPEZIUS MUSCLES BILATERALLY. RESTRICTION OF ROM IS NOTED. . EXTREMITIES:1+ EDEMA BILATERAL LOWER EXTREMITIES. NEUROLOGIC EXAM:AREA OF DECREASED SENSATION OVER LEFT ANTERIOR/LATERAL THIGH. 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 PREVENTIVE MEDICINE PT INSTRUCTED TO GET HER OXYGEN TANK FIXED AND NOT TO GO OUT WITHOUT OXYGEN.PT INSTRUCTED ON TRIGGER POINT INJECTIONS AND PRE PROCEDURE CARE/ EXPRESSED UNDERSTANDING OF THIS. PROCEDURE CODES FA211 ESTABILISHED PATIENT [facility] FAC[facility] CHARGE G8142 PAIN ASSESS POS TOOL F/U PLAN DOC G8427 DOC MEDS VERIFIED W/PT OR RE DISPOSITION & COMMUNICATION FOLLOW UP AFTER INJECTION (REASON: CHECK AUTH FOR TPI/RIGHT SHOULDER) ELECTRONICALLY SIGNED BY DONG GONZALES ON 06/12/2017 AT 05:45 PM EDT DISCLAIMER : THIS IS A VISIT SUMMARY EXTRACTED FROM THE [employer] CHART. IT IS NOT A COPY OF THE [employer] PROGRESS NOTE. FRANK
== END ==
LOC: M PAIN 09:00
PROVIDERS: ATTEND Nurse Practitioner Family
DX: G89.29 Other chronic pain (principal); M54.2 Cervicalgia; M46.1 Sacroiliitis, not elsewhere classified; M79.1 Myalgia; I10 Essential (primary) hypertension; M19.90 Unspecified osteoarthritis, unspecified site; Z88.0 Allergy status to penicillin; Z88.2 Allergy status to sulfonamides; Z88.1 Allergy status to other antibiotic agents; Z79.82 Long term (current) use of aspirin; Z79.899 Other long term (current) drug therapy

== ENCOUNTER → 2017-06-03 | Outpatient (CLI) | payer MEDICARE, MEDICAID ==
[~2017-06-03] MED LIST changes: +BUPIVACAINE HCL 0.25% 10 ML VIAL As Ordered ONE; +BUPIVACAINE HCL 0.25% 30 ML VIAL As Ordered ONE; +TRIAMCINOLONE ACETONIDE SUSP 40 MG/ML VIAL (J3301) As Ordered ONE
--- NOTE | 2017-06-23 01:13 | ECWPNPC ---
PATIENT NAME: SHARON HERNÁNDEZ : 1925 GENDER: FEMALE VISIT DATE: 06/03/2017 DISCHARGE DATE: 06/03/17957 VISIT LOCKED DATE TIME: PHYSICIAN: BRYAN MILLER RESOURCE: BRYAN MILLER REASON FOR APPOINTMENT 1. TPI RT NECK, RT SHOULDER, RT THORACIC HISTORY OF PRESENT ILLNESS HISTORY OF PRESENT ILLNESS: PAIN THE PATIENT DESCRIBES THE PAIN... FALL RISK SCREENING: SCREENING :NO FALLS IN THE PAST YEAR CURRENT MEDICATIONS TAKING METOPROLOL TARTRATE 25 MG TAB ORAL BID, NOTES: 06-02-17899 TAKING ATORVASTATIN CALCIUM 20 MG TABLET 1 TABLET ORALLY ONCE A DAY, NOTES: 06-02-172099 TAKING HYDROCODONE-ACETAMINOPHEN 5-325 MG TABLET 1 TABLET NEEDED ORALLY EVERY 4 HRS PRN, NOTES: 06-02-172099 TAKING EYE-BEULAH EXTRA PLUS LUTEIN TABLET ORALLY , NOTES: 2099 TAKING ADVAIR DISKUS 100-50 MCG/DOSE MISCELLANEOUS INHALATION , NOTES: 06-03-17699 TAKING VITAMIN D 1000 UNIT CAPSULE 1 CAPSULE ORALLY ONCE A DAY, NOTES: 06-02-17799 TAKING ASPIRIN ADULT LOW DOSE 81 MG TABLET DELAYED RELEASE 1 TABLET ORALLY ONCE A DAY, NOTES: 06-02-17699 TAKING GABAPENTIN 300 300 MG TABLET 1 OR 2 ORAL AT HS PRN, NOTES: 06-02-17799 TAKING FLONASE 50 MCG/DOSE INHALER 1 SPRAY IN EACH NOSTRIL NASALLY ONCE A DAY, NOTES: 06-03-17699 TAKING NITROGLYCERIN 0.4 MG TABLET SUBLINGUAL SUBLINGUAL PRN CHEST PAIN, NOTES: 07/11/16@0100 TAKING ASPERCREME 10 % CREAM 1 APPLICATION TO AFFECTED AREA NEEDED EXTERNALLY 2-3X/DAY, NOTES: 07/14/16@2100 TAKING LIDOCAINE 5 % PATCH 1 PATCH TO INTACT SKIN REMOVE AFTER 12 HOURS EXTERNALLY ONCE A DAY ON 12 HRS, OFF 12 HRS TO LOW BACK/SHOULDERS, NOTES: NOT LATELY TAKING ASCORBIC ACID 500 MG TABLET CHEWABLE 1 TABLET ORALLY ONCE A DAY, NOTES: 06-02-17799 TAKING FERROUS SULFATE 325 (65 FE) MG TABLET 1 TABLET ORALLY TWICE DAILY, NOTES: 06-02-17899 TAKING OMEPRAZOLE 40 MG CAPSULE DELAYED RELEASE 1 CAPSULE ORALLY ONCE A DAY, NOTES: 06-02-17 TAKING ATROVENT HFA 17 MCG/ACT AEROSOL SOLUTION 2 PUFFS INHALATION FOUR TIMES A DAY, NOTES: TAKING ONDANSETRON 4 MG TABLET DISINTEGRATING 1 TABLET ON THE TONGUE AND ALLOW TO DISSOLVE ORALLY EVERY 4 HOURS NEEDED, NOTES: NOT LATELY TAKING POLYETHYLENE GLYCOL - POWDER 1 CAP ORALLY DAILY, NOTES: 06-02-17 0900 TAKING CARBOXYMETHYLCELLULOSE SODIUM 0.5 % SOLUTION 1 DROP INTO AFFECTED EYE NEEDED OPHTHALMIC 24 TIME(S) A DAY, NOTES: NOT USED LATELY NOT-TAKING VITAMIN B-1 1000 MG TABLET 1 TABLET ORALLY ONCE A DAY NOT-TAKING FISH OIL 1000 MG CAPSULE 1 CAPSULE ORALLY ONCE A DAY NOT-TAKING SLEEP AID 25 MG TABLET 1 TABLET AT BEDTIME NEEDED ORALLY AT HS PRN NOT-TAKING PANTOPRAZOLE SODIUM 40 MG TABLET DELAYED RELEASE 1 TABLET ORALLY ONCE A DAY, NOTES: 629 MEDICATION LIST REVIEWED AND RECONCILED WITH THE PATIENT PAST MEDICAL HISTORY HTN OSTEO ARTHRITIS CORONARY ARTERY DISEASE ANEMIA COPD ALLERGIES PENICILLIN (FOR ALLERGIES USE ONLY): HIVES: ALLERGY SULFA (FOR ALLERGY USE ONLY): CONFUSION: ALLERGY ERYTHROMYCIN: CONFUSION: ALLERGY REVIEW OF SYSTEMS REVIEWED BY: PROVIDER: . CONSTITUTIONAL: ANY CHANGE IN YOUR MEDICAL CONDITION? NO . CHILLS NO . FEVER NO . INFECTION: DO YOU HAVE NEW INFECTIONS? NO . DO YOU HAVE HISTORY OF MRSA? NO . MUSCULOSKELETAL: ANY NEW PATTERNS OF PAIN OR NUMBNESS? YES SCIATICA HURTING AGAIN . GASTROENTEROLOGY: ANY NEW CHANGE IN BOWEL CONTROL? NO . GENITOURINARY: ANY NEW CHANGE IN BLADDER CONTROL? NO . IS THERE A CHANCE YOU COULD BE ? NO . HEMATOLOGY/LYMPH: DO YOU TAKE ANY BLOOD THINNERS? (FOR EXAMPLE- COUMADIN, PLAVIX, AGGRENOX, PLATEL, PRADAXA, OR XARELTO) NO . WHEN WAS YOUR LAST DOSE? DATE: TIME: . NEUROLOGY: HAVE YOU FALLEN IN THE PAST 6 MONTHS? NO . ANY NEW EXTREMITY NUMBNESS OR WEAKNESS? NO . CARDIOLOGY: DO YOU HAVE A PACEMAKER OR DEFIBRILLATOR? NO . RESPIRATORY: HAVE YOU BEEN SICK IN THE PAST WEEK? NO . FEVER NO . FLU LIKE SYMPTOMS? NO . COUGH NO . INTEGUMENTARY: DO YOU HAVE ANY RASHES OR OPEN SORES? NO . ALLERGIC/IMMUNO: ARE YOU ALLERGIC TO SHELLFISH OR IV DYE? NO . ANY NEW ALLERGIES? NO . PSYCHIATRIC: DO YOU HAVE THOUGHTS OF HURTING YOURSELF OR SOMEONE ELSE? NO . ARE YOU ABUSED, NEGLECTED, OR IN AN UNSAFE ENVIRONMENT? NO . ENDOCRINOLOGY: ARE YOU DIABETIC? NO . OTHER: DO YOU NEED ANY PRESCRIPTIONS? NO . IF YES, PLEASE LIST: ____ . ANY NEW PROBLEMS WITH YOUR MEDICATIONS? NO . WHEN DID YOU LAST EAT? ____ . WHEN DID YOU LAST DRINK? ____ . WHAT DID YOU LAST DRINK? ____ . NAME OF PERSON DRIVING YOU HOME? ____ . DO YOU HAVE ANY OTHER QUESTIONS OR CONCERNS NO . VITAL SIGNS WT 126 LBS, HT 4'1", BMI 36.89 INDEX, BP 157/78 MM HG, HR 77 /MIN, RR 18 /MIN, TEMP 98.0 F, OXYGEN SAT % 92, NA INITIALS AW 0840, REVIEWED BY: KG. ASSESSMENTS MYALGIA - M79.1 (PRIMARY) PROCEDURES PN TRIGGER POINT INJECTION WITH STEROIDS PRE PROCEDURE DIAGNOSIS 1. MYALGIA 2. PAIN AT RIGHT NECK, RIGHT SHOULDER, AND RIGHT THORACIC POST PROCEDURE DIAGNOSIS 1. MYALGIA 2. PAIN AT RIGHT NECK, RIGHT SHOULDER, AND RIGHT THORACIC PROCEDURE TRIGGER POINT INJECTION AT RIGHT NECK AREA, RIGHT SHOULDER AREA AND RIGHT THORACIC AREA SURGEON DR. BRYAN MILLER OPERATING ROOM TECHNOLOGIST NONE ANESTHESIA LOCAL PRE PROCEDURE NOTE THE PATIENT HAS A HISTORY OF CHRONIC PAIN AT THE RIGHT NECK AREA, RIGHT SHOULDER AREA, AND RIGHT THORACIC AREA. I EVALUATE THE PATIENT AND REVIEWED THE CHART. THERE IS EVIDENCE OF BANDS OF TISSUE WITH RESTRICTION OF MOVEMENT AND PRESENCE OF TRIGGER POINT AT THE AFFECTED AREA. I WENT OVER THE RISKS, ALTERNATIVES, AND BENEFITS ASSOCIATED WITH THIS PROCEDURE. THE PATIENT WOULD LIKE TO PROCEED AND GIVE CONSENT TO PERFORMED THE PROCEDURE. THE PATIENT DENIES UNEXPLAINABLE WEIGHT LOSS, FEVER, CHILLS, OR NEW CHANGES IN URINARY OR BOWEL CONTROL DESCRIPTION OF PROCEDURE THE PATIENT WAS BROUGHT TO THE PROCEDURE ROOM AND PLACED IN THE SITTING POSITION. THE AREA WAS CLEANED WITH ALCOHOL. THE PROCEDURE WAS DONE USING ASEPTIC STERILE TECHNIQUE. I CHECKED LATERALITY AND THE LEVEL WHERE THE PROCEDURE WAS GOING TO BE PERFORMED WITH THE PATIENT AND THE SUPPORTING STAFF AT THE MOMENT OF THE TIME OUT IN THE PROCEDURE ROOM. USING A 25-GAUGE NEEDLE, TRIGGER POINTS WERE INJECTED AT THE RIGHT NECK AREA, RIGHT SHOULDER AREA, AND RIGHT THORACIC AREA WITH A TOTAL OF 40 ML OF BUPIVACAINE 0.25% AND KENALOG 40 MG. THERE WAS NO EVIDENCE OF BLOOD, PARESTHESIA OR CEREBROSPINAL FLUID DURING THE PROCEDURE. THE PATIENT WAS SENT TO THE RECOVERY ROOM. THE PATIENT WAS MOVING THE EXTREMITIES AND DOING WELL. THERE WAS NO COMPLICATION DURING THE PROCEDURE POST PROCEDURE NOTE THE PATIENT WILL BE SEEN IN A FOLLOW UP IN THE NEXT FEW WEEKS. INSTRUCTIONS WERE GIVEN, QUESTIONS WERE ANSWERED, AND THE PATIENT EXPRESSED UNDERSTANDING AND AGREES WITH THE PLAN. I NEREDIA JIMÉNEZ DOCUMENTED THE ABOVE INFORMATION ACTING A PLATFORM MAN FOR DR. MILLER. I HAVE REVIEWED THE ABOVE DOCUMENT WRITTEN BY NEREIDA JIMÉNEZ SCRIBRazia AND I VERIFY THAT IT IS ACCURATE. PROCEDURE CODES 59858 INJECT TRIGGER POINTS 3/> DISPOSITION & COMMUNICATION FOLLOW UP 3 WEEKS ELECTRONICALLY SIGNED BY BRYAN MILLER MD ON 06/22/2017 AT 11:18 AM EDT DISCLAIMER : THIS IS A VISIT SUMMARY EXTRACTED FROM THE [employer] CHART. IT IS NOT A COPY OF THE [employer] PROGRESS NOTE. FRANK
== END ==
LOC: M PAIN 08:30
PROVIDERS: ATTEND Anesthesiology
DX: G89.29 Other chronic pain (principal); M54.2 Cervicalgia; M25.511 Pain in right shoulder; M54.6 Pain in thoracic spine; M79.1 Myalgia; I10 Essential (primary) hypertension; M19.90 Unspecified osteoarthritis, unspecified site; J44.9 Chronic obstructive pulmonary disease, unspecified; Z88.0 Allergy status to penicillin; Z88.2 Allergy status to sulfonamides; Z88.1 Allergy status to other antibiotic agents; Z79.82 Long term (current) use of aspirin; Z79.899 Other long term (current) drug therapy
CPT/HCPCS: 20553; J3301

== ENCOUNTER → 2017-06-10 | Outpatient (CLI) | payer MEDICARE, MEDICAID ==
[~2017-06-10] MED LIST changes: -BUPIVACAINE HCL 0.25% 10 ML VIAL As Ordered ONE; -BUPIVACAINE HCL 0.25% 30 ML VIAL As Ordered ONE; +FERR325T3 PO; +LEVO25TA5; +NITR0.4S14; -TRIAMCINOLONE ACETONIDE SUSP 40 MG/ML VIAL (J3301) As Ordered ONE; +VITA500C10 PO
--- NOTE | 2017-06-10 16:51 | REP ---
RIGHT SHOULDER: Three views of the right shoulder are performed. There is no acute fracture or dislocation. There appears to be mild narrowing and spurring at the glenohumeral joint. Small calcification at the superolateral margin of the humeral head may represent tendinous calcification and calcific tendonitis. IMPRESSION: Mild degenerative changes glenohumeral joint. Possible mild calcific tendonitis. Signed by Samuel Medellin MD 06/10/2017 05:16 P
== END ==
LOC: M RAD 16:05
PROVIDERS: ATTEND Nurse Practitioner Family
DX: M79.1 Myalgia (principal); M19.011 Primary osteoarthritis, right shoulder
CPT/HCPCS: 73030; G0463

== ENCOUNTER → 2017-06-10 | Outpatient (CLI) | payer MEDICARE, MEDICAID ==
[~2017-06-10] MED LIST changes: -FERR325T3 PO; -LEVO25TA5; -NITR0.4S14; -VITA500C10 PO
--- NOTE | 2017-06-25 00:05 | ECWPNPC ---
PATIENT NAME: SHARON HERNÁNDEZ : 1925 GENDER: FEMALE VISIT DATE: 06/10/2017 DISCHARGE DATE: 06/10/17 1549 VISIT LOCKED DATE TIME: PHYSICIAN: DANILO DE LEON RESOURCE: DANILO DE LEON REASON FOR APPOINTMENT 1. INCREASE IN PAIN HISTORY OF PRESENT ILLNESS HISTORY OF PRESENT ILLNESS: PAIN THE PATIENT DESCRIBES THE PAIN... FALL RISK SCREENING: SCREENING :NO FALLS IN THE PAST YEAR TODAY'S VISIT: NOTES: S/P TRIGGER POINT INJECTIONS TO NECK AND RIGHT SHOULDER AREA. PAIN LEVEL 7/10 PRIOR TO INJECTION AND THEN IT DECREASED TO 3/10. ON 06/07- NOT A MARKED BRUISING AND INCREASE OF PAIN OVER THE BASE OF NECK. DENIES ANY FALLS OR INJURIES. NO OTHER BRUISES OR BLOOD IN STOOL OR URINE. . CURRENT MEDICATIONS TAKING METOPROLOL TARTRATE 25 MG TAB ORAL BID TAKING ATORVASTATIN CALCIUM 20 MG TABLET 1 TABLET ORALLY ONCE A DAY TAKING HYDROCODONE-ACETAMINOPHEN 5-325 MG TABLET 1 TABLET NEEDED ORALLY EVERY 4 HRS PRN TAKING EYE-BEULAH EXTRA PLUS LUTEIN TABLET 2 TAB ORALLY BID TAKING ADVAIR DISKUS 100-50 MCG/DOSE MISCELLANEOUS 1 PUFF INHALATION BID TAKING ASPIRIN ADULT LOW DOSE 81 MG TABLET DELAYED RELEASE 1 TABLET ORALLY ONCE A DAY TAKING GABAPENTIN 300 300 MG TABLET 1 OR 2 ORAL AT HS PRN TAKING FLONASE 50 MCG/DOSE INHALER 2 SPRAY IN EACH NOSTRIL NASALLY ONCE A DAY TAKING NITROGLYCERIN 0.4 MG TABLET SUBLINGUAL SUBLINGUAL PRN CHEST PAIN TAKING ASPERCREME 10 % CREAM 1 APPLICATION TO AFFECTED AREA NEEDED EXTERNALLY 2-3X/DAY TAKING ASCORBIC ACID 500 MG TABLET CHEWABLE 1 TABLET ORALLY ONCE A DAY TAKING FERROUS SULFATE 325 (65 FE) MG TABLET 1 TABLET ORALLY 3-4 TIMES A WEEK TAKING OMEPRAZOLE 40 MG CAPSULE DELAYED RELEASE 1 CAPSULE ORALLY ONCE A DAY TAKING ATROVENT HFA 17 MCG/ACT AEROSOL SOLUTION 2 PUFFS INHALATION FOUR TIMES A DAY TAKING ONDANSETRON 4 MG TABLET DISINTEGRATING 1 TABLET ON THE TONGUE AND ALLOW TO DISSOLVE ORALLY EVERY 4 HOURS NEEDED TAKING POLYETHYLENE GLYCOL - POWDER 1 CAP ORALLY DAILY TAKING CARBOXYMETHYLCELLULOSE SODIUM 0.5 % SOLUTION 1 DROP INTO AFFECTED EYE NEEDED OPHTHALMIC DAILY TAKING MULTI COMPLETE - CAPSULE 1 TAB ORALLY DAILY NOT-TAKING VITAMIN D 1000 UNIT CAPSULE 1 CAPSULE ORALLY ONCE A DAY NOT-TAKING LIDOCAINE 5 % PATCH 1 PATCH TO INTACT SKIN REMOVE AFTER 12 HOURS EXTERNALLY ONCE A DAY ON 12 HRS, OFF 12 HRS TO LOW BACK/SHOULDERS NOT-TAKING VITAMIN B-1 1000 MG TABLET 1 TABLET ORALLY ONCE A DAY NOT-TAKING FISH OIL 1000 MG CAPSULE 1 CAPSULE ORALLY ONCE A DAY NOT-TAKING SLEEP AID 25 MG TABLET 1 TABLET AT BEDTIME NEEDED ORALLY AT HS PRN NOT-TAKING PANTOPRAZOLE SODIUM 40 MG TABLET DELAYED RELEASE 1 TABLET ORALLY ONCE A DAY, NOTES: 0630 MEDICATION LIST REVIEWED AND RECONCILED WITH THE PATIENT PAST MEDICAL HISTORY HTN OSTEO ARTHRITIS CORONARY ARTERY DISEASE ANEMIA COPD ALLERGIES PENICILLIN (FOR ALLERGIES USE ONLY): HIVES: ALLERGY SULFA (FOR ALLERGY USE ONLY): CONFUSION: ALLERGY ERYTHROMYCIN: CONFUSION: ALLERGY SOCIAL HISTORY GENERAL: TOBACCO USE ARE YOU A:FORMER SMOKER HOW LONG HAS IT BEEN SINCE YOU LAST SMOKED?5-10 YEARS ISLAM [id number] TENRIISM LANGUAGE LANGUAGES SPOKEN:CROATIAN LEARNING BARRIERS / SPECIAL NEEDS CHANGE FROM LAST VISIT?NO BARRIERS TO LEARNING?NO HEARING IMPAIRED?YES VISION IMPAIRED?YES :CORRECTIVE LENSES COGNITIVELY IMPAIRED?NO READINESS TO LEARN?YES LEARNING PREFERENCES?NO LEARNING CAPABILITIES PRESENT?YES EMOTIONAL BARRIERS?NO SPECIAL DEVICES?YES :[employer] EDUCATOR NEEDED?NO NEW PATIENT PAIN DIARY TODAY'S VISITNOTES FROM 0-10, WHAT LEVEL IS YOUR PAIN TODAY?0 PAIN CLINIC PFS, CLERGY, PUBLIC HEALTH REFERRALS PFS REFERRAL NEEDED?NO CLERGY REFERRAL NEEDED?NO PUBLIC HEALTH REFERRAL NEEDED?NO WAS THE PROVIDER NOTIFIED OF ANY PERTINENT INFO?NO HAS THE PATIENT BEEN EDUCATED REGARDING HIS/HER PLAN OF CARE?YES HAS THE PATIENT BEEN EDUCATED REGARDING PAIN, THE RISK FOR PAIN, THE IMPORTANCE OF EFFECTIVE PAIN MANAGEMENT, AND THE PAIN ASSESSMENT PROCESS?YES REVIEW OF SYSTEMS REVIEWED BY: PROVIDER: DANILO CALDERÓN . CONSTITUTIONAL: ANY CHANGE IN YOUR MEDICAL CONDITION? NO . CHILLS NO . FEVER NO . INFECTION: DO YOU HAVE NEW INFECTIONS? NO . DO YOU HAVE HISTORY OF MRSA? NO . MUSCULOSKELETAL: ANY NEW PATTERNS OF PAIN OR NUMBNESS? NO . GASTROENTEROLOGY: ANY NEW CHANGE IN BOWEL CONTROL? NO . GENITOURINARY: ANY NEW CHANGE IN BLADDER CONTROL? NO . IS THERE A CHANCE YOU COULD BE ? NO . HEMATOLOGY/LYMPH: DO YOU TAKE ANY BLOOD THINNERS? (FOR EXAMPLE- COUMADIN, PLAVIX, AGGRENOX, PLATEL, PRADAXA, OR XARELTO) NO . WHEN WAS YOUR LAST DOSE? DATE: TIME: . NEUROLOGY: HAVE YOU FALLEN IN THE PAST 6 MONTHS? NO . ANY NEW EXTREMITY NUMBNESS OR WEAKNESS? NO . CARDIOLOGY: DO YOU HAVE A PACEMAKER OR DEFIBRILLATOR? NO . RESPIRATORY: HAVE YOU BEEN SICK IN THE PAST WEEK? NO . FEVER NO . FLU LIKE SYMPTOMS? NO . COUGH NO . INTEGUMENTARY: DO YOU HAVE ANY RASHES OR OPEN SORES? NO . ALLERGIC/IMMUNO: ARE YOU ALLERGIC TO SHELLFISH OR IV DYE? NO . ANY NEW ALLERGIES? NO . PSYCHIATRIC: DO YOU HAVE THOUGHTS OF HURTING YOURSELF OR SOMEONE ELSE? NO . ARE YOU ABUSED, NEGLECTED, OR IN AN UNSAFE ENVIRONMENT? NO . ENDOCRINOLOGY: ARE YOU DIABETIC? NO . OTHER: DO YOU NEED ANY PRESCRIPTIONS? YES . IF YES, PLEASE LIST: HYDROCODONE . ANY NEW PROBLEMS WITH YOUR MEDICATIONS? NO . WHEN DID YOU LAST EAT? ____ . WHEN DID YOU LAST DRINK? ____ . WHAT DID YOU LAST DRINK? ____ . NAME OF PERSON DRIVING YOU HOME? ____ . DO YOU HAVE ANY OTHER QUESTIONS OR CONCERNS NO . VITAL SIGNS WT 126 LBS, HT 4'1", BMI 36.89 INDEX, BP 151/75 MM HG, HR 86 /MIN, RR 86 /MIN, TEMP 97.6 F, OXYGEN SAT % 91%, NA INITIALS SC 14:55, REVIEWED BY: PAULA. EXAMINATION GENERAL EXAMINATION: GENERAL APPEARANCE:COLOR PALE. PSYCHALERT , ORIENTED X 3 , APPROPRIATE MOOD AND AFFECT. APPEARS UNCOMFORTABLE . LUNGS:SHORTNESS OF BREATH EVEN AT REST. DOES NOT BRING HER OXYGEN AGAIN TODAY. OXYGEN AT 2 L NC APPLIED HERE IN [facility]. DECREASED BREATH SOUNDS THROUGHOUT ALL LOBES. . HEART:HEART RATE REGULAR. MUSCULOSKELETAL:HYPER SENS TO LIGHT TOUCH OVER SCOTT SHOULDERS AND UPPER BACK. EXQUISITE TENDERNESS OVER RIGHT CLAVICAL AND CHEST WALL AND AT AC JINT. DECREASED ROM WITH NECK ROTATION TO THE RIGHT. SKIN:3 X 5 CM ECCYMOTIC AREA AT RIGHT OF THE C7 PROMINENCE.. ASSESSMENTS MYALGIA - M79.1 (PRIMARY) CERVICALGIA - M54.2 OTHER CHRONIC PAIN - G89.29 PAIN IN RIGHT SHOULDER - M25.511 TREATMENT MYALGIA SHOULDER [id number],SUSAN M 06/10/2017 3:31:21 PM > RIGHT NOTES: CONTINUE CURRENT MEDS. GET TRANSPORT OXYGEN REPAIRED. PROCEDURE CODES FA211 ESTABILISHED PATIENT [facility] CHARGE G8730 PAIN ASSESS POS TOOL F/U PLAN DOC G8427 DOC MEDS VERIFIED W/PT OR RE DISPOSITION & COMMUNICATION FOLLOW UP KEEP SCHEDULED APPIONTMENT (REASON: NECK/SHOULDER PAIN) ELECTRONICALLY SIGNED BY DONG GONZALES ON 06/24/2017 AT 08:47 AM EDT DISCLAIMER : THIS IS A VISIT SUMMARY EXTRACTED FROM THE [employer] CHART. IT IS NOT A COPY OF THE [employer] PROGRESS NOTE. FRANK
== END ==
LOC: M PAIN 14:15
PROVIDERS: ATTEND Nurse Practitioner Family
DX: G89.29 Other chronic pain (principal); M54.2 Cervicalgia; M25.511 Pain in right shoulder; M79.1 Myalgia; I10 Essential (primary) hypertension; M19.90 Unspecified osteoarthritis, unspecified site; J44.9 Chronic obstructive pulmonary disease, unspecified; Z87.891 Personal history of nicotine dependence; Z88.0 Allergy status to penicillin; Z88.2 Allergy status to sulfonamides; Z88.1 Allergy status to other antibiotic agents; Z79.52 Long term (current) use of systemic steroids; Z79.899 Other long term (current) drug therapy

== ENCOUNTER → 2017-06-17 | Outpatient (CLI) | payer MEDICARE, MEDICAID ==
[~2017-06-17] MED LIST changes: +FERR325T3 PO; +LEVO25TA5; +NITR0.4S14; +VITA500C10 PO
--- NOTE | 2017-06-28 23:42 | ECWPNPC ---
PATIENT NAME: SHARON HERNÁNDEZ : 1925 GENDER: FEMALE VISIT DATE: 06/17/2017 DISCHARGE DATE: 06/17/17 1023 VISIT LOCKED DATE TIME: PHYSICIAN: DANILO DE LEON RESOURCE: DANILO DE LEON REASON FOR APPOINTMENT 1. POST TPI HISTORY OF PRESENT ILLNESS HISTORY OF PRESENT ILLNESS: PAIN THE PATIENT DESCRIBES THE PAIN... FALL RISK SCREENING: SCREENING :NO FALLS IN THE PAST YEAR TODAY'S VISIT: NOTES: RATES PSIN TODAY 06/04. PAIN IS CENTERED RIGHT SHOULDER AND LEFT HIP AND BUTTUCK. IS S/P TPI TO RIGHT SHOULDER ON 06/03/17. TODAY PAIN IS THE WORST IN THE LEFT SCIATIC REGION. . CURRENT MEDICATIONS TAKING METOPROLOL TARTRATE 25 MG TAB ORAL BID TAKING ATORVASTATIN CALCIUM 20 MG TABLET 1 TABLET ORALLY ONCE A DAY TAKING HYDROCODONE-ACETAMINOPHEN 5-325 MG TABLET 1 TABLET NEEDED ORALLY EVERY 4 HRS PRN TAKING EYE-BEULAH EXTRA PLUS LUTEIN TABLET 2 TAB ORALLY BID TAKING ADVAIR DISKUS 100-50 MCG/DOSE MISCELLANEOUS 1 PUFF INHALATION BID TAKING ASPIRIN ADULT LOW DOSE 81 MG TABLET DELAYED RELEASE 1 TABLET ORALLY ONCE A DAY TAKING GABAPENTIN 300 300 MG TABLET 1 OR 2 ORAL AT HS PRN TAKING FLONASE 50 MCG/DOSE INHALER 2 SPRAY IN EACH NOSTRIL NASALLY ONCE A DAY TAKING NITROGLYCERIN 0.4 MG TABLET SUBLINGUAL SUBLINGUAL PRN CHEST PAIN TAKING ASPERCREME 10 % CREAM 1 APPLICATION TO AFFECTED AREA NEEDED EXTERNALLY 2-3X/DAY TAKING ASCORBIC ACID 500 MG TABLET CHEWABLE 1 TABLET ORALLY ONCE A DAY TAKING FERROUS SULFATE 325 (65 FE) MG TABLET 1 TABLET ORALLY 3-4 TIMES A WEEK TAKING OMEPRAZOLE 40 MG CAPSULE DELAYED RELEASE 1 CAPSULE ORALLY ONCE A DAY TAKING ATROVENT HFA 17 MCG/ACT AEROSOL SOLUTION 2 PUFFS INHALATION FOUR TIMES A DAY TAKING ONDANSETRON 4 MG TABLET DISINTEGRATING 1 TABLET ON THE TONGUE AND ALLOW TO DISSOLVE ORALLY EVERY 4 HOURS NEEDED TAKING POLYETHYLENE GLYCOL - POWDER 1 CAP ORALLY DAILY TAKING CARBOXYMETHYLCELLULOSE SODIUM 0.5 % SOLUTION 1 DROP INTO AFFECTED EYE NEEDED OPHTHALMIC DAILY TAKING MULTI COMPLETE - CAPSULE 1 TAB ORALLY DAILY NOT-TAKING VITAMIN D 1000 UNIT CAPSULE 1 CAPSULE ORALLY ONCE A DAY NOT-TAKING LIDOCAINE 5 % PATCH 1 PATCH TO INTACT SKIN REMOVE AFTER 12 HOURS EXTERNALLY ONCE A DAY ON 12 HRS, OFF 12 HRS TO LOW BACK/SHOULDERS NOT-TAKING VITAMIN B-1 1000 MG TABLET 1 TABLET ORALLY ONCE A DAY NOT-TAKING FISH OIL 1000 MG CAPSULE 1 CAPSULE ORALLY ONCE A DAY NOT-TAKING SLEEP AID 25 MG TABLET 1 TABLET AT BEDTIME NEEDED ORALLY AT HS PRN NOT-TAKING PANTOPRAZOLE SODIUM 40 MG TABLET DELAYED RELEASE 1 TABLET ORALLY ONCE A DAY, NOTES: 629 MEDICATION LIST REVIEWED AND RECONCILED WITH THE PATIENT PAST MEDICAL HISTORY HTN OSTEO ARTHRITIS CORONARY ARTERY DISEASE ANEMIA COPD ALLERGIES PENICILLIN (FOR ALLERGIES USE ONLY): HIVES: ALLERGY SULFA (FOR ALLERGY USE ONLY): CONFUSION: ALLERGY ERYTHROMYCIN: CONFUSION: ALLERGY REVIEW OF SYSTEMS REVIEWED BY: PROVIDER: DANILO CALDERÓN . CONSTITUTIONAL: ANY CHANGE IN YOUR MEDICAL CONDITION? NO . CHILLS NO . FEVER NO . INFECTION: DO YOU HAVE NEW INFECTIONS? NO . DO YOU HAVE HISTORY OF MRSA? NO . MUSCULOSKELETAL: ANY NEW PATTERNS OF PAIN OR NUMBNESS? NO . GASTROENTEROLOGY: ANY NEW CHANGE IN BOWEL CONTROL? NO . GENITOURINARY: ANY NEW CHANGE IN BLADDER CONTROL? NO . IS THERE A CHANCE YOU COULD BE ? NO . HEMATOLOGY/LYMPH: DO YOU TAKE ANY BLOOD THINNERS? (FOR EXAMPLE- COUMADIN, PLAVIX, AGGRENOX, PLATEL, PRADAXA, OR XARELTO) NO . WHEN WAS YOUR LAST DOSE? DATE: TIME: . NEUROLOGY: HAVE YOU FALLEN IN THE PAST 6 MONTHS? NO . ANY NEW EXTREMITY NUMBNESS OR WEAKNESS? NO . CARDIOLOGY: DO YOU HAVE A PACEMAKER OR DEFIBRILLATOR? NO . RESPIRATORY: HAVE YOU BEEN SICK IN THE PAST WEEK? NO . FEVER NO . FLU LIKE SYMPTOMS? NO . COUGH NO . INTEGUMENTARY: DO YOU HAVE ANY RASHES OR OPEN SORES? NO . ALLERGIC/IMMUNO: ARE YOU ALLERGIC TO SHELLFISH OR IV DYE? NO . ANY NEW ALLERGIES? NO . PSYCHIATRIC: DO YOU HAVE THOUGHTS OF HURTING YOURSELF OR SOMEONE ELSE? NO . ARE YOU ABUSED, NEGLECTED, OR IN AN UNSAFE ENVIRONMENT? NO . ENDOCRINOLOGY: ARE YOU DIABETIC? NO . OTHER: DO YOU NEED ANY PRESCRIPTIONS? NO . IF YES, PLEASE LIST: ____ . ANY NEW PROBLEMS WITH YOUR MEDICATIONS? NO . WHEN DID YOU LAST EAT? ____ . WHEN DID YOU LAST DRINK? ____ . WHAT DID YOU LAST DRINK? ____ . NAME OF PERSON DRIVING YOU HOME? ____ . DO YOU HAVE ANY OTHER QUESTIONS OR CONCERNS SCIATICA . VITAL SIGNS WT 126 LBS, HT 4'1", BMI 36.89 INDEX, BP 157/90 MM HG, HR 71 /MIN, RR 16 /MIN, TEMP 97.8 F, OXYGEN SAT % 93%, NA INITIALS SC09:40, REVIEWED BY: NL. EXAMINATION GENERAL EXAMINATION: PSYCHALERT , ORIENTED X 3 , APPROPRIATE MOOD AND AFFECT . LUNGS:DECREASED AIR ENTRY AT BASES, VERY SHORT OF BREATH WITH EXERTION. SCATTERED WHEEZES THROUGHOUT. PLACED ON O2 AT 2 LITERS HERE IN DEPARTMENT WITH IMPROVEMENT. HEART:HEART RATE REGULAR, RAPID. MUSCULOSKELETAL:EXQUISITE TENDERNESS OVER LEFT SCIATIC REGION. , TRIGGER POINTS OVER UPPER THORACIC AND TRAPEZIUS. MARKED REDUCTION WITH ROM RIGHT AC JOINT. DIAGNOSTIC TESTS REVIEWEDXRAY RIGHT SHOULDER COMPLETED 06/10/17 REVIEWED. 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 PREVENTIVE MEDICINE DISCUSSED PRE PROCEDURE CARE WITH UNDERSTANDING EXPRESSED AND WRITTEN COPY GIVEN. PROCEDURE CODES FA211 ESTABILISHED PATIENT [facility]AC[facility] CHARGE DISPOSITION & COMMUNICATION FOLLOW UP AFTER INJECTION (REASON: LEFT SIJ - CHECK AUTH) ELECTRONICALLY SIGNED BY DONG GONZALES ON 06/28/2017 AT 03:51 PM EDT DISCLAIMER : THIS IS A VISIT SUMMARY EXTRACTED FROM THE [employer] CHART. IT IS NOT A COPY OF THE [employer] PROGRESS NOTE. FRANK
== END ==
LOC: M PAIN 09:45
PROVIDERS: ATTEND Nurse Practitioner Family
DX: G89.29 Other chronic pain (principal); M54.2 Cervicalgia; M46.1 Sacroiliitis, not elsewhere classified; M79.1 Myalgia; I10 Essential (primary) hypertension; M19.90 Unspecified osteoarthritis, unspecified site; J44.9 Chronic obstructive pulmonary disease, unspecified; Z88.0 Allergy status to penicillin; Z88.2 Allergy status to sulfonamides; Z88.1 Allergy status to other antibiotic agents; Z79.82 Long term (current) use of aspirin; Z79.899 Other long term (current) drug therapy

== ENCOUNTER 2017-08-18 04:24 | Emergency (ER) | payer MEDICARE, MEDICAID ==
[~2017-08-18 04:24] MED LIST changes: -FERR325T3 PO; -LEVO25TA5; -NITR0.4S14; -VITA500C10 PO
[2017-08-18 04:48] LABS: BASO # 0.1 10^3/uL (0.0-0.2); EOS # 0.4 10^3/uL (0.0-0.50); EOS % 7.4 % (0.0-3.0); IMMATURE GRANULOCYTE % 0.4 % (0-0); LYMPH # 1.2 10^3/uL (1.5-4.5); LYMPH % 23.9 % (24.0-44.0); MEAN CORPUSCULAR VOLUME 93.6 fl (80.0-96.0); MONO # 0.4 10^3/uL (0.0-0.8); NEUTROPHILS % 59.3 % (36.0-66.0); PLATELET COUNT, AUTOMATED 290 10^3/uL (150-450); RED CELL DISTRIBUTION WIDTH 16.2 % (11.5-14.5)
[2017-08-18 05:13] LABS: ANION GAP 8 MEQ/L (8-16); BLOOD UREA NITROGEN 19 MG/DL (7-18); CALCIUM LEVEL 8.3 MG/DL (8.8-10.2); CARBON DIOXIDE LEVEL 29 MEQ/L (21-32); CHLORIDE LEVEL 108 MEQ/L (98-107); CREATININE FOR GFR 0.78 MG/DL (0.55-1.02); GLOMERULAR FILTRATION RATE > 60.0 (>32); GLUCOSE, FASTING 93 MG/DL (83-110); POTASSIUM SERUM 4.1 MEQ/L (3.5-5.1); SODIUM LEVEL 145 MEQ/L (136-145)
[2017-08-18] MEDS ORDERED: METOCLOPRAMIDE INJ 10MG/2ML VIAL (J2765) IV ONE (06:15)
[2017-08-18] MEDS ORDERED: diphenhydrAMINE INJ 50MG/ML VIAL (J1200) IV ONE (06:15)
[2017-08-18] MEDS ORDERED: KETOROLAC 30 MG/ML VIAL (J1885) IV ONE (06:15)
--- NOTE | 2017-08-18 08:12 | REP ---
Portable chest, 04:50 a.m.: Comparison is 05/05/2017. There are no focal infiltrates or pleural effusions. The lung bailey otherwise clear. Cardiac size appears normal. The aubrey, mediastinum, bony thorax are unremarkable. I suspect there is a hiatal hernia. Impression: Hiatal hernia, otherwise negative portable chest. Signed by Samuel Palomo MD 08/18/2017 08:04 A
--- NOTE | 2017-08-18 09:48 | ECGEPIP ---
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
[2017-08-18 12:53] VITALS: BP 151/69
--- NOTE | 2017-08-18 19:13 | ECGEPIP ---
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
== END 2017-08-18 13:08 | disposition home or self-care (01) ==
LOC: EDBD 04:24 → M ED 04:24
DX: R07.9 Chest pain, unspecified (principal); I44.0 Atrioventricular block, first degree; R94.31 Abnormal electrocardiogram [ECG] [EKG]; I25.10 Atherosclerotic heart disease of native coronary artery without angina pectoris; Z82.49 Family history of ischemic heart disease and other diseases of the circulatory system; K44.9 Diaphragmatic hernia without obstruction or gangrene; Z79.82 Long term (current) use of aspirin; Z79.899 Other long term (current) drug therapy; Z88.1 Allergy status to other antibiotic agents; Z88.0 Allergy status to penicillin; Z88.2 Allergy status to sulfonamides; Z88.7 Allergy status to serum and vaccine; Z91.89 Other specified personal risk factors, not elsewhere classified
CPT/HCPCS: 71010; 80048; 82550; 82553; 83880; 84484; 85025; 93005; 93041; 94760; 96374; 96375; 99285; J1200; J1885; J2765

== ENCOUNTER → 2017-08-25 | Outpatient (CLI) | payer MEDICARE, MEDICAID ==
[~2017-08-25] MED LIST changes: +FERR325T3 PO; +LEVO25TA5; +NITR0.4S14; +VITA500C10 PO
--- NOTE | 2017-09-09 00:45 | ECWPNPC ---
PATIENT NAME: SHARON HERNÁNDEZ : 1925 GENDER: FEMALE VISIT DATE: 08/25/2017 DISCHARGE DATE: 08/25/17 1253 VISIT LOCKED DATE TIME: PHYSICIAN: BRYAN MILLER RESOURCE: BRYAN MILLER REASON FOR APPOINTMENT 1. LOW BACK PAIN HISTORY OF PRESENT ILLNESS FALL RISK SCREENING: SCREENING :NO FALLS IN THE PAST YEAR 89 YEAR OLD FEMALE PATIENT WITH HISTORY OF CHRONIC LOW BACK PAIN. PATIENT DESCRIBES THE PAIN ACHING, SORE, AND STABBING WITH A PAIN SCORE OF 7/10. PATIENT STATES THAT ANY TYPE OF ACTIVITY INCREASES THE PAIN IN HER LOWER BACK. MRS. HERNÁNDEZ ALSO STATES THAT SHE RECENTLY HAD HER FLU SHOT. CURRENTLY THE PATIENT IS USING HYDROCODONE AND GABAPENTIN FOR PAIN MANAGEMENT. PATIENT DENIES UNEXPLAINABLE WEIGHT LOSS, FEVER, CHILLS, NEW CHANGES ON HER URINARY OR BOWEL CONTROL. PAIN SCREENING: PATIENT HAS A COMPLAINT OF ACUTE OR CHRONIC PAIN :YES CURRENT MEDICATIONS TAKING METOPROLOL TARTRATE 25 MG TAB ORAL BID, NOTES: 08/25 10AM TAKING ATORVASTATIN CALCIUM 20 MG TABLET 1 TABLET ORALLY ONCE A DAY, NOTES: 08/25 10A TAKING HYDROCODONE-ACETAMINOPHEN 5-325 MG TABLET 1 TABLET NEEDED ORALLY EVERY 4 HRS PRN, NOTES: 08/25 7AM TAKING EYE-BEULAH EXTRA PLUS LUTEIN TABLET 2 TAB ORALLY BID, NOTES: 08/25 10A TAKING ADVAIR DISKUS 100-50 MCG/DOSE MISCELLANEOUS 1 PUFF INHALATION BID, NOTES: 08/25 6AM TAKING ASPIRIN ADULT LOW DOSE 81 MG TABLET DELAYED RELEASE 1 TABLET ORALLY ONCE A DAY, NOTES: 08/25 10AM TAKING GABAPENTIN 300 300 MG TABLET 1 OR 2 ORAL AT HS PRN, NOTES: 08/25 10A TAKING FLONASE 50 MCG/DOSE INHALER 2 SPRAY IN EACH NOSTRIL NASALLY ONCE A DAY, NOTES: 08/25 TAKING NITROGLYCERIN 0.4 MG TABLET SUBLINGUAL SUBLINGUAL PRN CHEST PAIN, NOTES: 08/18 TAKING ASPERCREME 10 % CREAM 1 APPLICATION TO AFFECTED AREA NEEDED EXTERNALLY 2-3X/DAY, NOTES: 08/25 TAKING ASCORBIC ACID 500 MG TABLET CHEWABLE 1 TABLET ORALLY ONCE A DAY, NOTES: 08/25 TAKING FERROUS SULFATE 325 (65 FE) MG TABLET 1 TABLET ORALLY 3-4 TIMES A WEEK, NOTES: 10/31 10AM TAKING OMEPRAZOLE 40 MG CAPSULE DELAYED RELEASE 1 CAPSULE ORALLY ONCE A DAY, NOTES: 08/25 10AM TAKING ATROVENT HFA 17 MCG/ACT AEROSOL SOLUTION 2 PUFFS INHALATION FOUR TIMES A DAY, NOTES: 08/25 6AM TAKING ONDANSETRON 4 MG TABLET DISINTEGRATING 1 TABLET ON THE TONGUE AND ALLOW TO DISSOLVE ORALLY EVERY 4 HOURS NEEDED, NOTES: WEEKS AGO TAKING POLYETHYLENE GLYCOL - POWDER 1 CAP ORALLY DAILY, NOTES: 08/25 10AM TAKING CARBOXYMETHYLCELLULOSE SODIUM 0.5 % SOLUTION 1 DROP INTO AFFECTED EYE NEEDED OPHTHALMIC DAILY, NOTES: 08/25 TAKING MULTI COMPLETE - CAPSULE 1 TAB ORALLY DAILY, NOTES: 08/25 10A TAKING LEVOTHYROXINE SODIUM 25 MCG TABLET 1 TABLET ON AN EMPTY STOMACH IN THE MORNING ORALLY ONCE A DAY, NOTES: 08/25 7AM NOT-TAKING VITAMIN D 1000 UNIT CAPSULE 1 CAPSULE ORALLY ONCE A DAY NOT-TAKING LIDOCAINE 5 % PATCH 1 PATCH TO INTACT SKIN REMOVE AFTER 12 HOURS EXTERNALLY ONCE A DAY ON 12 HRS, OFF 12 HRS TO LOW BACK/SHOULDERS NOT-TAKING VITAMIN B-1 1000 MG TABLET 1 TABLET ORALLY ONCE A DAY NOT-TAKING FISH OIL 1000 MG CAPSULE 1 CAPSULE ORALLY ONCE A DAY NOT-TAKING SLEEP AID 25 MG TABLET 1 TABLET AT BEDTIME NEEDED ORALLY AT HS PRN NOT-TAKING PANTOPRAZOLE SODIUM 40 MG TABLET DELAYED RELEASE 1 TABLET ORALLY ONCE A DAY, NOTES: 629 MEDICATION LIST REVIEWED AND RECONCILED WITH THE PATIENT PAST MEDICAL HISTORY HTN OSTEO ARTHRITIS CORONARY ARTERY DISEASE ANEMIA COPD ALLERGIES PENICILLIN (FOR ALLERGIES USE ONLY): HIVES: ALLERGY SULFA (FOR ALLERGY USE ONLY): CONFUSION: ALLERGY ERYTHROMYCIN: CONFUSION: ALLERGY SOCIAL HISTORY GENERAL: TOBACCO USE ARE YOU A:FORMER SMOKER HOW LONG HAS IT BEEN SINCE YOU LAST SMOKED?5-10 YEARS [id number] LANG[employer] LANGUAGES SPOKEN:BOLIVIAN LEARNING BARRIERS / SPECIAL NEEDS CHANGE FROM LAST VISIT?NO BARRIERS TO LEARNING?NO HEARING IMPAIRED?YES VISION IMPAIRED?YES :CORRECTIVE LENSES COGNITIVELY IMPAIRED?NO READINESS TO LEARN?YES LEARNING PREFERENCES?NO LEARNING CAPABILITIES PRESENT?YES EMOTIONAL BARRIERS?NO 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 SIJ INJECTION HAS THE PATIENT BEEN EDUCATED REGARDING PAIN, THE RISK FOR PAIN, THE IMPORTANCE OF EFFECTIVE PAIN MANAGEMENT, AND THE PAIN ASSESSMENT PROCESS?YES REVIEWED BY: VAN. REVIEW OF SYSTEMS REVIEWED BY: PROVIDER: BRYAN MILLER MD . CONSTITUTIONAL: ANY CHANGE IN YOUR MEDICAL CONDITION? NO . CHILLS NO . FEVER NO . INFECTION: DO YOU HAVE NEW INFECTIONS? NO . DO YOU HAVE HISTORY OF MRSA? NO . MUSCULOSKELETAL: ANY NEW PATTERNS OF PAIN OR NUMBNESS? YES, PAIN HAS INTENSIFIED. . SYTEMIC LUPUS NO . GASTROENTEROLOGY: ANY NEW CHANGE IN BOWEL CONTROL? NO . BARRETTS ESOPHAGUS NO . CIRRHOSIS NO . HEPATITIS NO . LIVER FAILURE NO . ACID REFLUX NO . UNEXPLAINED WEIGHT LOSS NO . GENITOURINARY: ANY NEW CHANGE IN BLADDER CONTROL? NO . IS THERE A CHANCE YOU COULD BE ? NO . HEMATOLOGY/LYMPH: DO YOU TAKE ANY BLOOD THINNERS? (FOR EXAMPLE- COUMADIN, PLAVIX, AGGRENOX, PLATEL, PRADAXA, OR XARELTO) NO . WHEN WAS YOUR LAST DOSE? DATE: TIME: . LOW PLATELET COUNT NO . SICKLE CELL DISEASE NO . VON WILLIEBRANDS NO . FACTOR V LEIDEN NO . THALLASEMIA NO . ANEMIA NO . EASY BRUISING NO . NEUROLOGY: HAVE YOU FALLEN IN THE PAST 6 MONTHS? NO . ANY NEW EXTREMITY NUMBNESS OR WEAKNESS? NO . HEAD INJURY NO . DEMENTIA NO . CEREBRAL PALSY NO . MULTIPLE SCLEROSIS NO . DIZZINESS NO . HEADACHE NO . STROKES NO . VERTIGO NO . CARDIOLOGY: DO YOU HAVE A PACEMAKER OR DEFIBRILLATOR? NO . ANGINA NO . HEART ATTACK NO . HEART SURGERY NO . CONGESTIVE HEART FAILURE/FLUID OVERLOAD NO . CHEST PAIN NO . HIGH BLOOD PRESSURE NO . IRREGULAR HEART BEAT NO . RESPIRATORY: HAVE YOU BEEN SICK IN THE PAST WEEK? NO . FEVER NO . FLU LIKE SYMPTOMS? NO . CPAP NO . BYPAP NO . ASTHMA NO . EMPHYSEMA NO . CHRONIC LUNG DISEASES NO . SHORTNESS OF BREATH ON EXERTION NO . COUGH NO . SNORING NO . INTEGUMENTARY: DO YOU HAVE ANY RASHES OR OPEN SORES? NO . ALLERGIC/IMMUNO: ARE YOU ALLERGIC TO SHELLFISH OR IV DYE? NO . ANY NEW ALLERGIES? NO . PSYCHIATRIC: DO YOU HAVE THOUGHTS OF HURTING YOURSELF OR SOMEONE ELSE? NO . ARE YOU ABUSED, NEGLECTED, OR IN AN UNSAFE ENVIRONMENT? NO . ENDOCRINOLOGY: ARE YOU DIABETIC? NO . THYROID DISORDER NO . OTHER: DO YOU NEED ANY PRESCRIPTIONS? NO . IF YES, PLEASE LIST: ____ . ANY NEW PROBLEMS WITH YOUR MEDICATIONS? NO . WHEN DID YOU LAST EAT? 08/25 4AM . WHEN DID YOU LAST DRINK? ____ . WHAT DID YOU LAST DRINK? WATER . 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 DO YOU HAVE ANY OTHER QUESTIONS OR CONCERNS YES, PT HAD CHEST DISCOMFORT EPISODE 1 WEEK AGO, TOOK 2 NITRO TABS, WENT TO ED. NO CARDIAC ISSUE, CHEST COLD. . VITAL SIGNS WT 123 LBS, HT 4'1", BMI 36.01 INDEX, BP 180/63 MM HG, HR 75 /MIN, RR 18 /MIN, TEMP 98.3 F, OXYGEN SAT % 89, SAFE IN ENV? (Y/N) Y, REVIEWED BY: VAN. EXAMINATION : PATIENT IS ALERT O X 3 AND COOPERATIVE. TENDERNESS IN THE LOWER BACK AND PARASPINAL MUSCLE GROUP. 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 ASSESSMENTS SACROILIITIS, NOT ELSEWHERE CLASSIFIED - M46.1 (PRIMARY) MYALGIA - M79.1 TREATMENT SACROILIITIS, NOT ELSEWHERE CLASSIFIED NOTES: WE DISCUSSED SEVERAL ISSUES WITH MRS. HERNÁNDEZ'S PAIN MANAGEMENT CASE. AT THIS TIME PATIENT WILL CONTINUE WITH THE SAME MEDICATION REGIME BEFORE. PATIENT DENIES ABUSE OF ANY MEDICATION, DENIES USE OF ILLEGAL SUBSTANCES, AND STATES THAT SHE IS ONLY USING MEDICATION FOR PAIN MANAGEMENT. PATIENT RECENTLY HAD HER FLU SHOT RECENTLY. WE DISCUSSED THE RISKS, BENEFITS, AND ALTERNATIVES OF A SACROILIAC INJECTION AND THE PATIENT WOULD LIKE TO PROCEED AT THIS TIME. INSTRUCTIONS WERE GIVEN, QUESTIONS WERE ANSWERED, PATIENT REPORTS UNDERSTANDING AND AGREES WITH THE PLAN. I, JAMES HERNANDEZ, DOCUMENTED THE ABOVE INFORMATION ACTING A SCRIBE FOR DR. MILLER. I HAVE REVIEWED THE ABOVE DOCUMENT, WRITTEN BY JAMES PADILLA AND I VERIFY THAT IT IS ACCURATE. PROCEDURE CODES FA211 ESTABILISHED PATIENT [facility] FACILITY CHARGE G8427 DOC MEDS VERIFIED W/PT OR RE G8702 PAIN ASSESS POS TOOL F/U PLAN DOC DISPOSITION & COMMUNICATION FOLLOW UP SIJ AFTER APPROVAL ELECTRONICALLY SIGNED BY BRYAN MILLER MD ON 09/08/2017 AT 02:48 PM EST DISCLAIMER : THIS IS A VISIT SUMMARY EXTRACTED FROM THE [employer] CHART. IT IS NOT A COPY OF THE [employer] PROGRESS NOTE. FRANK
== END ==
LOC: M PAIN 10:00
PROVIDERS: ATTEND Anesthesiology
DX: M46.1 Sacroiliitis, not elsewhere classified (principal); M79.1 Myalgia; I10 Essential (primary) hypertension; E78.5 Hyperlipidemia, unspecified; D64.9 Anemia, unspecified; J44.9 Chronic obstructive pulmonary disease, unspecified; Z87.891 Personal history of nicotine dependence; Z79.899 Other long term (current) drug therapy; Z88.0 Allergy status to penicillin; Z88.1 Allergy status to other antibiotic agents; Z88.2 Allergy status to sulfonamides

== ENCOUNTER 2017-09-04 07:15 | Emergency (ER) | payer MEDICARE, MEDICAID ==
[~2017-09-04] VITALS: Ht 149.9 cm; Wt 55.9 kg
[~2017-09-04 07:15] MED LIST changes: -FERR325T3 PO; -LEVO25TA5; -NITR0.4S14; -VITA500C10 PO
[2017-09-04] MEDS ORDERED: FERR325T3 PO (07:36)
[2017-09-04] MEDS ORDERED: NITR0.4S14 (07:36)
[2017-09-04] MEDS ORDERED: VITA500C10 PO (07:36)
[2017-09-04] MEDS ORDERED: LEVO25TA5 (07:36)
[2017-09-04] MEDS ORDERED: NS 1,000 ML IV SCH (08:01)
[2017-09-04 08:12] LABS: BASO # 0.1 10^3/uL (0.0-0.2); BASO % 1.3 % (0.0-1.0); EOS # 0.1 10^3/uL (0.0-0.50); EOS % 1.7 % (0.0-3.0); IMMATURE GRANULOCYTE % 0.3 % (0-0); LYMPH # 1.4 10^3/uL (1.5-4.5); LYMPH % 18.4 % (24.0-44.0); MEAN CORPUSCULAR HEMOGLOBIN 30.5 pg (27.0-33.0); MEAN CORPUSCULAR HGB CONC 32.5 g/dl (32.0-36.5); MEAN CORPUSCULAR VOLUME 93.7 fl (80.0-96.0); MONO # 0.4 10^3/uL (0.0-0.8); MONO % 5.9 % (0.0-5.0); NEUTROPHILS # 5.4 10^3/uL (1.8-7.7); NEUTROPHILS % 72.4 % (36.0-66.0); PLATELET COUNT, AUTOMATED 310 10^3/uL (150-450); RED CELL DISTRIBUTION WIDTH 14.6 % (11.5-14.5); WHITE BLOOD COUNT 7.5 10^3/uL (4.0-10.0)
[2017-09-04] MEDS ORDERED: MORPHINE 2 MG/ML 1ML SYRINGE IV ONE (08:15)
[2017-09-04] MEDS ORDERED: ONDANSETRON 4MG/2ML VIAL (J2405) IV ONE (08:15)
[2017-09-04 08:23] LABS: ALBUMIN 3.4 GM/DL (3.2-5.2); ALBUMIN/GLOBULIN RATIO 1.17 (1.00-1.93); ALKALINE PHOSPHATASE 82 U/L (45-117); ALT/SGPT 15 U/L (12-78); ANION GAP 9 MEQ/L (8-16); AST/SGOT 17 U/L (7-37); BILIRUBIN,DIRECT 0.1 MG/DL (0.0-0.2); BILIRUBIN,TOTAL 0.6 MG/DL (0.2-1.0); BLOOD UREA NITROGEN 15 MG/DL (7-18); CARBON DIOXIDE LEVEL 27 MEQ/L (21-32); CHLORIDE LEVEL 108 MEQ/L (98-107); GLOMERULAR FILTRATION RATE > 60.0 (>32); GLUCOSE, FASTING 100 MG/DL (83-110); POTASSIUM SERUM 3.9 MEQ/L (3.5-5.1); SODIUM LEVEL 144 MEQ/L (136-145); TOTAL PROTEIN 6.3 GM/DL (6.4-8.2)
--- NOTE | 2017-09-04 08:50 | REP ---
ACUTE ABDOMINAL SERIES: 09/04/2017. Comparison: CT abdomen and pelvis 05/18/2017, portable chest 08/18/2017. Clinical history: Abdominal pain. Findings: PA chest: Lungs show eventration and slight elevation of the right diaphragm unchanged. There is left ventricular configuration of the heart with left atrial and ventricular enlargement. Some underlying fibrosis and COPD. Pulmonary arteries are prominent. The aorta is calcified and tortuous at the arch but without aneurysm. Airway is intact. Bones intact. Flat and upright abdomen. Small amounts of stool in the left colon, rectosigmoid with gas scattered in the remainder of the colon and small bowel loops without dilatation. No significant air-fluid levels, masses or free air. Advanced degenerative changes of the lumbosacral spine with levorotatory scoliosis centered at L2-3 with facet arthritis and degenerative disc disease at each level. Bones demineralized. There are degenerative changes in the spine. No abnormal calcifications over the renal fossae or expected course of the ureters. Aortic calcifications without aneurysm suggested. Impression: 1. Nonspecific gas pattern. No dilated loops, significant air-fluid levels, obstruction, mass or free air. 2. Advanced degenerative changes of the spine. 3. COPD and fibrosis with cardiomegaly. No edema. No dense consolidation. Signed by Joe Sainz MD 09/04/2017 05:28 P
[2017-09-04] MEDS ORDERED: GASTROGRAFIN SOLUTION 30ML (Q9963) PO ONE ×2 (09:30)
[2017-09-04] MEDS ORDERED: ISOVUE-370 76% 100ML VIAL (Q9967) As Ordered ONE (11:03)
--- NOTE | 2017-09-04 12:13 | REP ---
CT ABDOMEN AND PELVIS WITH IV AND ORAL CONTRAST: 09/04/2017. Clinical history: Left lower quadrant pain, known diverticulosis. Comparison: 05/05/2017. Technique: Oral Gastrografin mixture 10 ml in 290 ml flavored water for two doses per our bowel contrast protocol. Bolus of 100 ml Isovue 370 given, scanning through the abdomen and pelvis with both coronal and sagittal reconstructions then provided. Findings: Lung bases show some fibrotic changes and dependent atelectatic change, stable. There is curvilinear fibroatelectatic change in the medial basal segment left lower lobe. Moderate sized hiatal hernia unchanged. Heart is mildly enlarged with left atrial and ventricular enlargement. No pericardial thickening or effusion. I see no hepatosplenomegaly, focal hepatic mass or biliary dilatation. Gallbladder shows no calcified stone or mass. There is no ascites. Pancreas without a mass. Common duct is normal for age. The pancreatic duct in the head of the pancreas up to 4 mm, tapering to 3 mm in the body of the pancreas and less in the tail. No peripancreatic adenopathy, fluid or inflammatory change. Small bowel loops are fluid and contrast filled without abnormal dilatation. Oral contrast reaches the hepatic flexure and proximal transverse colon. There is no evidence of colitis or diverticulitis in the abdomen proper. Lung window review of all CT slices shows no perforation, free air or abscess. There are advanced degenerative disc and facet arthritic changes in the lumbar and lower thoracic spine with vacuum phenomenon at numerous levels and no acute compression fracture, spondylolysis at L5 with grade 1-2 spondylolisthesis of L5 on S1. All of this unchanged. Visualized ribs intact. CT pelvis: SI joints and sacrum intact. Iliac bones without fracture. The hips show mild arthritic change. Pubic rami intact. The distal left colon and sigmoid show diverticulosis without definite diverticulitis or colitis. There is no ascites or pericolonic inflammatory change. Small bowel loops in the deep pelvis were unremarkable. The cecum is intact. Appendix is absent. Ileocecal valve unremarkable. No ventral or inguinal hernia nor pathologic sized inguinal adenopathy. Atherosclerotic calcifications aortoiliac vessels to the femoral vessels without aneurysm. Impression: 1. No CT evidence of diverticulitis, colitis or other acute inflammatory process in the abdomen and pelvis. 2. There is no ascites, adenopathy or mass. 3. Status post appendectomy. The small bowel loops grossly intact. 4. Solid organs in the upper abdomen, the gallbladder and stomach are unchanged. Moderate sized hiatal hernia. 5. Extensive degenerative disc and facet arthritic changes throughout the thoracolumbar spine visible. 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 Signed by Joe Sainz MD 09/04/2017 05:33 P
[2017-09-04 13:25] VITALS: BP 139/69
[2017-09-04] MEDS ORDERED: ZOFR4TAB3 PO (13:27)
== END 2017-09-04 15:24 | disposition home or self-care (01) ==
LOC: M ED 07:15
DX: A09 Infectious gastroenteritis and colitis, unspecified (principal); I25.10 Atherosclerotic heart disease of native coronary artery without angina pectoris; I25.2 Old myocardial infarction; E78.5 Hyperlipidemia, unspecified; K21.9 Gastro-esophageal reflux disease without esophagitis; J44.9 Chronic obstructive pulmonary disease, unspecified; K57.90 Diverticulosis of intestine, part unspecified, without perforation or abscess without bleeding; G89.29 Other chronic pain; M54.30 Sciatica, unspecified side; I10 Essential (primary) hypertension; Z95.5 Presence of coronary angioplasty implant and graft; Z87.891 Personal history of nicotine dependence; K44.9 Diaphragmatic hernia without obstruction or gangrene; M43.07 Spondylolysis, lumbosacral region; I51.7 Cardiomegaly; Z79.82 Long term (current) use of aspirin; Z79.899 Other long term (current) drug therapy; Z88.1 Allergy status to other antibiotic agents; Z88.0 Allergy status to penicillin; Z88.7 Allergy status to serum and vaccine; Z88.2 Allergy status to sulfonamides; Z91.89 Other specified personal risk factors, not elsewhere classified
CPT/HCPCS: 74022; 74177; 80048; 80076; 83605; 83690; 85025; 93041; 96374; 96375; 99285; J2405; Q9963; Q9967

== ENCOUNTER → 2017-09-21 | Outpatient (CLI) | payer MEDICARE, MEDICAID ==
[~2017-09-21] MED LIST changes: +BUPIVACAINE HCL 0.25% 30 ML VIAL As Ordered ONE; +FERR325T3 PO; +ISOVUE-M 300 61% 15ML VIAL (Q9967) As Ordered ONE; +LEVO25TA5; +LIDOCAINE 1% SDV INJ 30 ML VIAL As Ordered ONE; +NITR0.4S14; +TRIAMCINOLONE ACETONIDE SUSP 40 MG/ML VIAL (J3301) As Ordered ONE; +VITA500C10 PO; +diazePAM 5 MG TAB As Ordered ONE
--- NOTE | 2017-09-21 12:28 | REP ---
SI JOINT SERIES: Two views. HISTORY: Injection procedure for pain. 13 seconds of fluoroscopy time is reported. FINDINGS: A sequence of two last image hold fluoroscopic spot radiographs of the right SI joint document needle position and contrast injections associated with SI joint injection procedure. Signed by Gerry Batres MD 09/21/2017 01:03 P
--- NOTE | 2017-10-08 00:04 | ECWPNPC ---
PATIENT NAME: SHARON HERNÁNDEZ : 1925 GENDER: FEMALE VISIT DATE: 09/21/2017 DISCHARGE DATE: 09/21/17 1146 VISIT LOCKED DATE TIME: PHYSICIAN: BRYAN MILLER RESOURCE: BRYAN MILLER REASON FOR APPOINTMENT 1. SIJ HISTORY OF PRESENT ILLNESS HISTORY OF PRESENT ILLNESS: PAIN THE PATIENT DESCRIBES THE PAIN... FALL RISK SCREENING: SCREENING :NO FALLS IN THE PAST YEAR CURRENT MEDICATIONS TAKING METOPROLOL TARTRATE 25 MG TAB ORAL BID, NOTES: 09-21-17629 TAKING ATORVASTATIN CALCIUM 20 MG TABLET 1 TABLET ORALLY ONCE A DAY, NOTES: 09-20-172099 TAKING HYDROCODONE-ACETAMINOPHEN 5-325 MG TABLET 1 TABLET NEEDED ORALLY EVERY 4 HRS PRN, NOTES: 09-20-171699 TAKING EYE-BEULAH EXTRA PLUS LUTEIN TABLET 2 TAB ORALLY BID, NOTES: 09-21-17629 TAKING ADVAIR DISKUS 100-50 MCG/DOSE MISCELLANEOUS 1 PUFF INHALATION BID, NOTES: 09-21-17629 TAKING ASPIRIN ADULT LOW DOSE 81 MG TABLET DELAYED RELEASE 1 TABLET ORALLY ONCE A DAY, NOTES: 09-21-17629 TAKING GABAPENTIN 300 300 MG TABLET 1 OR 2 ORAL AT HS PRN, NOTES: 09-20-172099 TAKING FLONASE 50 MCG/DOSE INHALER 2 SPRAY IN EACH NOSTRIL NASALLY ONCE A DAY, NOTES: 09-21-17629 TAKING NITROGLYCERIN 0.4 MG TABLET SUBLINGUAL SUBLINGUAL PRN CHEST PAIN, NOTES: NONE NEEDED TAKING ASPERCREME 10 % CREAM 1 APPLICATION TO AFFECTED AREA NEEDED EXTERNALLY 2-3X/DAY, NOTES: 09-20-17 TAKING ATROVENT HFA 17 MCG/ACT AEROSOL SOLUTION 2 PUFFS INHALATION FOUR TIMES A DAY, NOTES: 09-21-17629 TAKING POLYETHYLENE GLYCOL - POWDER 1 CAP ORALLY DAILY, NOTES: 09-21-17629 TAKING CARBOXYMETHYLCELLULOSE SODIUM 0.5 % SOLUTION 1 DROP INTO AFFECTED EYE NEEDED OPHTHALMIC DAILY, NOTES: 09-21-17629 TAKING MULTI COMPLETE - CAPSULE 1 TAB ORALLY DAILY, NOTES: 09-21-17629 TAKING LEVOTHYROXINE SODIUM 25 MCG TABLET 1 TABLET ON AN EMPTY STOMACH IN THE MORNING ORALLY ONCE A DAY, NOTES: 09-21-17629 TAKING VITAMIN D 1000 UNIT CAPSULE 1 CAPSULE ORALLY ONCE A DAY, NOTES: 09-20-17 TAKING LIDOCAINE 5 % PATCH 1 PATCH TO INTACT SKIN REMOVE AFTER 12 HOURS EXTERNALLY ONCE A DAY ON 12 HRS, OFF 12 HRS TO LOW BACK/SHOULDERS NOT-TAKING ASCORBIC ACID 500 MG TABLET CHEWABLE 1 TABLET ORALLY ONCE A DAY NOT-TAKING FERROUS SULFATE 325 (65 FE) MG TABLET 1 TABLET ORALLY 3-4 TIMES A WEEK NOT-TAKING OMEPRAZOLE 40 MG CAPSULE DELAYED RELEASE 1 CAPSULE ORALLY ONCE A DAY NOT-TAKING ONDANSETRON 4 MG TABLET DISINTEGRATING 1 TABLET ON THE TONGUE AND ALLOW TO DISSOLVE ORALLY EVERY 4 HOURS NEEDED, NOTES: WEEKS AGO NOT-TAKING VITAMIN B-1 1000 MG TABLET 1 TABLET ORALLY ONCE A DAY NOT-TAKING SLEEP AID 25 MG TABLET 1 TABLET AT BEDTIME NEEDED ORALLY AT HS PRN DISCONTINUED FISH OIL 1000 MG CAPSULE 1 CAPSULE ORALLY ONCE A DAY DISCONTINUED PANTOPRAZOLE SODIUM 40 MG TABLET DELAYED RELEASE 1 TABLET ORALLY ONCE A DAY, NOTES: 629 MEDICATION LIST REVIEWED AND RECONCILED WITH THE PATIENT PAST MEDICAL HISTORY HTN OSTEO ARTHRITIS CORONARY ARTERY DISEASE ANEMIA COPD ALLERGIES PENICILLIN (FOR ALLERGIES USE ONLY): HIVES: ALLERGY SULFA (FOR ALLERGY USE ONLY): CONFUSION: ALLERGY ERYTHROMYCIN: CONFUSION: ALLERGY SOCIAL HISTORY GENERAL: TOBACCO USE ARE YOU A:FORMER SMOKER HOW LONG HAS IT BEEN SINCE YOU LAST SMOKED?5-10 YEARS TEN[employer]ISM [id number] 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 LANGUAGE LANGUAGES SPOKEN:CONGOLESE LEARNING BARRIERS / SPECIAL NEEDS CHANGE FROM LAST VISIT?NO BARRIERS TO LEARNING?NO HEARING IMPAIRED?YES VISION IMPAIRED?YES :CORRECTIVE LENSES COGNITIVELY IMPAIRED?NO READINESS TO LEARN?YES LEARNING PREFERENCES?NO LEARNING CAPABILITIES PRESENT?YES EMOTIONAL BARRIERS?NO 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 SIJ INJECTION HAS THE PATIENT BEEN EDUCATED REGARDING PAIN, THE RISK FOR PAIN, THE IMPORTANCE OF EFFECTIVE PAIN MANAGEMENT, AND THE PAIN ASSESSMENT PROCESS?YES REVIEWED BY: VAN. HOSPITALIZATION/MAJOR DIAGNOSTIC PROCEDURE CARDIAC, ANEMIA 2014 REVIEW OF SYSTEMS REVIEWED BY: PROVIDER: . CONSTITUTIONAL: ANY CHANGE IN YOUR MEDICAL CONDITION? NO . CHILLS NO . FEVER NO . INFECTION: DO YOU HAVE NEW INFECTIONS? NO . DO YOU HAVE HISTORY OF MRSA? NO . MUSCULOSKELETAL: ANY NEW PATTERNS OF PAIN OR NUMBNESS? NO . GASTROENTEROLOGY: ANY NEW CHANGE IN BOWEL CONTROL? NO . GENITOURINARY: ANY NEW CHANGE IN BLADDER CONTROL? NO . IS THERE A CHANCE YOU COULD BE ? NO . HEMATOLOGY/LYMPH: DO YOU TAKE ANY BLOOD THINNERS? (FOR EXAMPLE- COUMADIN, PLAVIX, AGGRENOX, PLATEL, PRADAXA, OR XARELTO) NO . WHEN WAS YOUR LAST DOSE? DATE: TIME: . NEUROLOGY: HAVE YOU FALLEN IN THE PAST 6 MONTHS? NO . ANY NEW EXTREMITY NUMBNESS OR WEAKNESS? NO . CARDIOLOGY: DO YOU HAVE A PACEMAKER OR DEFIBRILLATOR? NO . RESPIRATORY: HAVE YOU BEEN SICK IN THE PAST WEEK? NO . FEVER NO . FLU LIKE SYMPTOMS? NO . COUGH NO . INTEGUMENTARY: DO YOU HAVE ANY RASHES OR OPEN SORES? NO . ALLERGIC/IMMUNO: ARE YOU ALLERGIC TO SHELLFISH OR IV DYE? NO . ANY NEW ALLERGIES? NO . PSYCHIATRIC: DO YOU HAVE THOUGHTS OF HURTING YOURSELF OR SOMEONE ELSE? NO . ARE YOU ABUSED, NEGLECTED, OR IN AN UNSAFE ENVIRONMENT? NO . ENDOCRINOLOGY: ARE YOU DIABETIC? NO . OTHER: DO YOU NEED ANY PRESCRIPTIONS? NO . IF YES, PLEASE LIST: ____ . ANY NEW PROBLEMS WITH YOUR MEDICATIONS? NO . WHEN DID YOU LAST EAT? 09-20-17 . WHEN DID YOU LAST DRINK? 09-21-17 0630 . WHAT DID YOU LAST DRINK? WATER . 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 DO YOU HAVE ANY OTHER QUESTIONS OR CONCERNS NO . VITAL SIGNS WT 126.0 LBS, HT 4'11", BMI 25.45 INDEX, BP 146/80 MANUAL, HR 68 /MIN, RR 18 /MIN, TEMP 98.2 F, OXYGEN SAT % 92%, NA INITIALS TL 0915, REVIEWED BY: CMPATIENT PLACED ON 2L N/C SHE WEARS IT ALL THE TIME. SATS UP TO 94%- 97% WITH O2. ASSESSMENTS SACROILIITIS, NOT ELSEWHERE CLASSIFIED - M46.1 (PRIMARY) PROCEDURES PN SI PRE PROCEDURE DIAGNOSIS SACROILIITIS, SACROILIAC JOINT DYSFUNCTION POST PROCEDURE DIAGNOSIS SACROILIITIS, SACROILIAC JOINT DYSFUNCTION PROCEDURE BILATERAL SACROILIAC JOINT BLOCK SURGEON DR. BRYAN MILLER FREIGHT ROUTER NONE ANESTHESIA LOCAL PRE PROCEDURE NOTE PATIENT WITH HISTORY OF CHRONIC LOW BACK PAIN. I EVALUATED THE PATIENT AND REVIEWED THE CHART. I WENT OVER THE RISKS, ALTERNATIVES, AND BENEFITS ASSOCIATED WITH THIS PROCEDURE. THE PATIENT WOULD LIKE TO PROCEED AND GAVE CONSENT TO PERFORM THE PROCEDURE. THE PATIENT DENIES UNEXPLAINABLE WEIGHT LOSS, FEVER, CHILLS, OR NEW CHANGES IN URINARY OR BOWEL CONTROL DESCRIPTION OF PROCEDURE THE PATIENT WAS BROUGHT TO THE PROCEDURE ROOM AND PLACED IN THE PRONE POSITION. THE LUMBOSACRAL AREA WAS CLEANED WITH CHLORAPREP SOLUTION AND DRAPED ASEPTICALLY. THE PROCEDURE WAS DONE UNDER STERILE CONDITIONS. I CHECKED LATERALITY AND THE LEVEL WHERE THE PROCEDURE WAS GOING TO BE PERFORMED WITH THE PATIENT AND THE SUPPORTING STAFF AT THE MOMENT OF THE TIME OUT IN THE PROCEDURE ROOM. UNDER FLUOROSCOPIC GUIDANCE, TARGET POINT WAS SELECTED AT THE LOWER BORDER OF THE RIGHT AND LEFT SACROILIAC JOINT. TARGET POINT WAS SELECTED AFTER MEDIAL ROTATION AND TILT OF THE MAGNIFIER OF THE C-ARM. LIDOCAINE WAS USED TO NUMB THE SKIN AND SUBCUTANEOUS TISSUE BELOW IT. A SPINAL NEEDLE, 22-GAUGE, WAS ADVANCED UNDER FLUOROSCOPIC GUIDANCE AND FOLLOWING PATIENT FEEDBACK UNTIL THE TARGET AREA WAS TOUCHED. THE POSITION OF THE NEEDLE WAS VERIFIED WITH AP AND LATERAL VIEWS. AFTER PROPER POSITION OF THE NEEDLE WAS ACHIEVED, ISOVUE M DYE 30%, 0.25 ML, WAS INJECTED SHOWING SPREAD OF THE DYE. THEN, A SOLUTION OF 20 MG OF KENALOG WAS INJECTED IN RIGHT JOINT WITH 3 ML OF BUPIVACAINE 0.125%. THERE WAS NO EVIDENCE OF BLOOD, PARESTHESIA OR CEREBROSPINAL FLUID DURING THE PROCEDURE. THE PATIENT WAS SENT TO THE RECOVERY ROOM. THE PATIENT WAS MOVING THE EXTREMITIES AND DOING WELL. THERE WAS NO COMPLICATION DURING THE PROCEDURE. FLUOROSCOPY TIME WAS 17 SECONDS POST PROCEDURE NOTE THE PATIENT WILL BE SEEN IN A FOLLOW UP IN THE NEXT FEW WEEKS. INSTRUCTIONS WERE GIVEN, QUESTIONS WERE ANSWERED, AND THE PATIENT EXPRESSED UNDERSTANDING AND AGREED WITH THE PLAN. I, JAMES HERNANDEZ, DOCUMENTED THE ABOVE INFORMATION ACTING A SCRIBE FOR DR. MILLER. I HAVE REVIEWED THE ABOVE DOCUMENT, WRITTEN BY JAMES PADILLA AND I VERIFY THAT IT IS ACCURATE DIAGNOSTIC IMAGING [facility] FLUORO GUIDANCE (PAIN)[id number] PROCEDURE CODES 67051 INJECT SACROILIAC JOINT, MODIFIERS: 50 [id number] RADXPS IN END [id number] PXD DISPOSITION & COMMUNICATION FOLLOW UP 3 WEEKS ELECTRONICALLY SIGNED BY BRYAN MILLER MD ON 10/06/2017 AT 10:09 PM EST DISCLAIMER : THIS IS A VISIT SUMMARY EXTRACTED FROM THE [employer] CHART. IT IS NOT A COPY OF THE [employer] PROGRESS NOTE. FRANK
== END ==
LOC: M PAIN 09:00
PROVIDERS: ATTEND Anesthesiology
DX: G89.29 Other chronic pain (principal); M46.1 Sacroiliitis, not elsewhere classified; I10 Essential (primary) hypertension; J44.9 Chronic obstructive pulmonary disease, unspecified; I20.9 Angina pectoris, unspecified; Z79.82 Long term (current) use of aspirin; Z79.891 Long term (current) use of opiate analgesic; Z79.899 Other long term (current) drug therapy; Z88.0 Allergy status to penicillin; Z88.2 Allergy status to sulfonamides; Z88.1 Allergy status to other antibiotic agents; Z87.891 Personal history of nicotine dependence
CPT/HCPCS: G0260; J3301; Q9967